=== PATIENT | female | born 1950 | race Caucasian/White ===

== ENCOUNTER 2017-06-18 22:57 | Inpatient (IN) | payer MEDICARE, OTHER ==
[~2017-06-18] VITALS: Ht 165.1 cm; Wt 68.0 kg
[2017-06-18] MEDS ORDERED: ZANT150T2 PO (23:12)
[2017-06-18 23:13] VITALS: BP 177/79; PULSE 96; RESP 18; TEMP 97.9; O2SAT 96
[2017-06-19] VITALS (17 sets, daily range): BP systolic 91–179; BP diastolic 44–82; PULSE 70–115; RESP 17–22; TEMP 96.8–100.9; O2SAT 91–98
[2017-06-19] MEDS ORDERED: ONDANSETRON HCL 4 MG/2 ML VIAL IVP ONE
--- NOTE | 2017-06-19 00:04 | PD ---
HPI Chief Complaint: Fall Time Seen by Provider: 23:48 Travel History International Travel<30 days: No Contact w/Intl Traveler<30days: No Traveled to known affect area: No History of Present Illness HPI The patient is a 67-year-old female who presents to the emergency department via EMS for right hip pain. The patient states she tripped and fell getting out of the shower earlier today. The patient thinks she struck her right knee on the sink prior to falling on the right hip. She does complain of a small bruise left elbow and abrasion of the anterior aspect of the right knee , however, denies any elbow pain or knee pain. She does complain of right hip pain that radiates into the right groin. She is able flex and extend the right hip and knee, however, is unable to bear weight. She denies any history of previous pelvic injuries or hip injuries. She denies any head injury or neck pain after the fall. The patient is currently in between physicians and does not have a primary physician. She does have a history of hiatal hernia and takes Zantac. She also has a history of hepatitis C. COUNTS INCLUDE 234 BEDS AT THE [facility] Past Medical History Narrative Medical Hep C, hiatal hernia ?: Not Past Surgical History Narrative Surgical Tonsillectomy Social History Tobacco Use: Yes Allergies-Medications (Allergen,Severity, Reaction): Coded Allergies: diphenhydramine (Verified Allergy, Unknown, 06/18/17) hydroxyzine (Verified Allergy, Unknown, 06/18/17) Reported Meds & Prescriptions Reported Meds & Active Scripts Active Reported Zantac (Ranitidine HCl) 150 Mg Tab 150 Mg PO DAILY Review of Systems Except as stated in HPI: all other systems reviewed are Neg HENT: No: Headaches, Neck Pain Cardiovascular: No: Chest Pain or Discomfort Respiratory: No: Shortness of Breath Musculoskeletal: Positive: Limited ROM, Pain Neurologic: No: Paresthesia, Sensory Disturbance Physical Exam Narrative GENERAL: Awake, alert, pleasant 67-year-old female who appears her stated age and is in no acute respiratory distress. SKIN: Focused skin assessment warm/dry. HEAD: Atraumatic. Normocephalic. EYES: No injection or drainage. ENT: No nasal bleeding or discharge. Mucous membranes pink and moist. NECK: Trachea midline. No JVD. CARDIOVASCULAR: Regular rate and rhythm. No murmur appreciated. RESPIRATORY: No accessory muscle use. Clear to auscultation. Breath sounds equal bilaterally. GASTROINTESTINAL: Abdomen soft, non-tender, nondistended. No rebound tenderness. MUSCULOSKELETAL: No obvious leg length discrepancy. Tenderness over the lateral aspect of the right hip and in the medial right inguinal region. Small contusion over the right knee the patient is able flex the right knee, patella is midline, no tenderness of palpation over the right knee. Contusion noted over the left elbow, however, she is able flex and extend left upper extremity without difficulty. Positive distal pulses. She is able plantarflex and dorsiflex the left leg. NEUROLOGICAL: Awake and alert. No obvious cranial nerve deficits. Motor grossly within normal limits. Normal speech. PSYCHIATRIC: Appropriate mood and affect; insight and judgment normal. Data Data Last Documented VS Vital Signs Date Time Temp Pulse Resp B/P (MAP) Pulse Ox O2 Delivery O2 Flow Rate FiO2 06/19/17 00:10 86 17 179/82 (114) 96 Room Air 06/18/17 23:13 97.9 Orders Orders Hip, Uni(Ap&Lat) W Ap Pelvis (06/18/17 23:57) Iv Access Insert/Monitor (06/18/17 23:57) Oximetry (06/18/17 23:57) Ecg Monitoring (06/18/17 23:57) Morphine Inj (Morphine Inj) (06/19/17 00:00) Ondansetron Inj (Zofran Inj) (06/19/17 00:00) Sodium Chloride 0.9% Flush (Ns Flush) (06/19/17 00:00) Electrocardiogram (06/19/17 00:53) Complete Blood Count With Diff (06/19/17 00:53) Comprehensive Metabolic Panel (06/19/17 00:53) Prothrombin Time / Inr (Pt) (06/19/17 00:53) Act Partial Throm Time (Ptt) (06/19/17 00:53) Urinalysis - C+S If Indicated (06/19/17 00:53) Type And Screen (06/19/17 00:53) Chest, Single Ap (06/19/17 00:53) Sodium Chloride 0.9% Flush (Ns Flush) (06/19/17 01:00) Diet Npo (06/20/17 Breakfast) Admit Order (Ed Use Only) (06/19/17 01:02) MDM Medical Decision Making Medical Screen Exam Complete: Yes Emergency Medical Condition: Yes Medical Record Reviewed: Yes Interpretation(s) X-ray the right hip reveals mildly angulated impacted basicervical right femoral neck fracture EKG reveals normal sinus rhythm with a rate of 93. Nonspecific T wave changes. Last Impressions Chest X-Ray 06/19/17 0053 Signed Impressions: Service Date/Time: Monday, June 19, 2017 01:04 - CONCLUSION: No acute disease Mann Villa MD Hip and Pelvis X-Ray 06/18/17 3257 Signed Impressions: Service Date/Time: Monday, June 19, 2017 00:28 - CONCLUSION: Mildly angulated and impacted basicervical right femoral neck fracture Mann Villa MD CBC reveals hemoglobin of 7.2, white count was slightly elevated CMP unremarkable Coags are unremarkable Differential Diagnosis Differential diagnosis includes fracture, pelvic fracture, hip fracture, dislocation, contusion, hematoma, inability to ambulate. Narrative Course X-ray of the pelvis and right hip were obtained. The patient was administered morphine 4 mg intravenously and Zofran 4 mg intravenously. The patient's hemoglobin was noted to be 7.2 CMP is unremarkable. The patient may need transfusion prior to surgery, I did notify the attending physician of the hemoglobin. The patient is medically cleared to go the floor. Physician Communication Physician Communication The on-call medical team was paged for admission. I discussed the patient with Dr. Catalan who agrees with admission. Diagnosis Primary Impression: Closed right hip fracture Qualified Codes: S72.001A - Fracture of unspecified part of neck of right femur, initial encounter for closed fracture Additional Impression: Anemia Qualified Codes: D64.9 - Anemia, unspecified Admitting Information Admitting Physician Requests: Admit Condition: Stable Humphrey Jack MD Jun 19, 2017 00:04
--- NOTE | 2017-06-19 00:56 | RADRPT ---
EXAM DATE/TIME: 06/19/2017 00:28 [facility] COMPARISON: No previous studies available for comparison. INDICATIONS : Pt fell earlier- Pain to right hip MEDICAL HISTORY : Hepatitis C. Gastroesophageal reflux disease. Hiatal hernia. SURGICAL HISTORY : Tonsillectomy. ENCOUNTER: Initial ACUITY: 1 day PAIN SCORE: 7/10 LOCATION: Right Hip FINDINGS: There is a slightly impacted minimally angulated basicervical femoral neck fracture. Minimal fragment ation of the lesser trochanter is noted. There is severe arthritic change with concentric joint space narrowing, subchondral sclerosis and marginal osteophyte formation. Bony pelvis appears intact. Cont ralateral left hip is notable for mild arthritic change. CONCLUSION: Mildly angulated and impacted basicervical right femoral neck fracture Mann Villa MD on June 19, 2017 at 0:52 Board Certified Radiologist. This report was verified electronically.
[2017-06-19] MEDS ORDERED: SODIUM CHLORIDE 0.9% FLUSH 10 ML FLUSH IVF PRN ×2 (01:00)
[2017-06-19] MEDS ORDERED: ACETAMINOPHEN 325 MG TAB PO PRN (01:15)
[2017-06-19] MEDS ORDERED: BISACODYL 10 MG SUPP RECTAL PRN (01:15)
[2017-06-19] MEDS ORDERED: LACTULOSE SYRUP 20 GM/30 ML CUP PO PRN (01:15)
[2017-06-19] MEDS ORDERED: ONDANSETRON HCL 4 MG/2 ML VIAL IVP PRN (01:15)
[2017-06-19] MEDS ORDERED: SODIUM CHLORIDE 0.9% FLUSH 10 ML FLUSH IV FLUSH PRN (01:15)
[2017-06-19] MEDS ORDERED: SENNOSIDES 8.6 MG TAB PO PRN (01:15)
[2017-06-19] MEDS ORDERED: MAGNESIUM HYDROXIDE SUSP 30 ML CUP PO PRN (01:15)
[2017-06-19] MEDS: SODIUM CHLOR 0.9% 1000 ML INJ 1,000 ML IV SCH ×3 (01:26→21:06)
[2017-06-19 01:27] LABS: AUTOMATED NEUTROPHIL # 12.3 TH/MM3 (1.8-7.7); BASOPHIL % 0.2 % (0.0-2.0); EOSINOPHIL % 0.3 % (0.0-4.0); HEMATOCRIT 25.2 % (35.0-46.0); HEMO FLAGS DIFF FINAL; LYMPH % 8.5 % (9.0-44.0); LYMPHOCYTE # 1.3 TH/MM3 (1.0-4.8); MEAN CELL VOLUME 62.3 FL (80.0-100.0); MEAN CORPUSCULAR HEMOGLOBIN 17.9 PG (27.0-34.0); MONO % 8.3 % (0.0-8.0); NEUT % 82.7 % (16.0-70.0); PLATELET COUNT 318 TH/MM3 (150-450); RED BLOOD COUNT 4.04 MIL/MM3 (4.00-5.30); RED CELL DISTRIBUTION WIDTH 20.1 % (11.6-17.2); WHITE BLOOD COUNT 14.9 TH/MM3 (4.0-11.0)
[2017-06-19] MEDS ORDERED: MORPHINE SULFATE 4 MG/ML INJ IV PUSH ONE ×2 (01:30)
--- NOTE | 2017-06-19 01:33 | RADRPT ---
EXAM DATE/TIME: 06/19/2017 01:04 [facility] COMPARISON: No previous studies available for comparison. INDICATIONS : Right hip pain post fall earlier MEDICAL HISTORY : Hepatitis C. Gastroesophageal reflux disease. Hiatal hernia. SURGICAL HISTORY : Tonsillectomy. ENCOUNTER: Initial ACUITY: 1 day PAIN SCORE: 8/10 LOCATION: Bilateral chest FINDINGS: Lungs are focally clear. No pleural effusion is evident. Retrocardiac double density appears to refle ct hiatal hernia. Mediastinal contours are otherwise satisfactory. CONCLUSION: No acute disease Mann Villa MD on June 19, 2017 at 1:31 Board Certified Radiologist. This report was verified electronically.
[2017-06-19 01:35] LABS: MEAN CORPUSCULAR HGB CONC 28.7 % (32.0-36.0)
[2017-06-19 01:42] LABS: APTT (PATIENT) 25.5 SEC (24.3-30.1); PROTHROMBIN TIME - PATIENT 10.8 SEC (9.8-11.6)
[2017-06-19 02:02] LABS: ALT (GPT) 23 U/L (10-53); ANION GAP 9 MEQ/L (5-15); AST (GOT) 24 U/L (15-37); BICARBONATE 26.1 MEQ/L (21.0-32.0); BLOOD UREA NITROGEN 17 MG/DL (7-18); CHLORIDE 107 MEQ/L (98-107); GLOMERULAR FILTRATION RATE 70 ML/MIN (>89); POTASSIUM 3.7 MEQ/L (3.5-5.1); SODIUM (NA) 142 MEQ/L (136-145)
[2017-06-19 02:04] LABS: ALKALINE PHOSPHATASE 99 U/L (45-117); TOTAL BILIRUBIN ADULT 0.4 MG/DL (0.2-1.0)
[2017-06-19 02:25] LABS: BLOOD, URINE NEG (NEG); COMMENT (UR) CATH-CULT NOT IND; CULTURE IF INDICATED CATH CULTURE NOT IND; GLUCOSE,URINE NEG (NEG); KETONE, URINE NEG (NEG); MUCUS URINE FEW /lpf (OCC); NITRITE,URINE NEG (NEG); PH, URINE 5.5 (5.0-8.5); SQUAMOUS EPITHELIAL CELL URINE <1 /hpf (0-5); URINE COLOR LIGHT-YELLOW (YELLW/STRAW)
[2017-06-19] MEDS ORDERED: SODIUM CHLOR 0.9% 250 ML INJ 250 ML IV ONE (02:30)
[2017-06-19] MEDS ORDERED: FUROSEMIDE 20 MG/2 ML VIAL IV PUSH ONE (02:30)
--- NOTE | 2017-06-19 02:56 | HHI.HP ---
[facility] Unknown Admission Diagnosis right hip fracture Diagnoses: (1) Fall Diagnosis: Principal (2) Closed right hip fracture Diagnosis: Principal (3) Anemia Diagnosis: Principal (4) HTN (hypertension) Diagnosis: Principal (5) Leukocytosis Diagnosis: Principal (6) Tobacco abuse Diagnosis: Principal Travel History International Travel<30 Days: No Contact w/Intl Traveler <30 Da: No Traveled to Known Affected Are: No History of Present Illness This is a 67-year-old female with a PMH of Hepatitis C and Tobacco Abuse who was brought to the ER by EMS secondary to complaints of right hip pain following a fall. Patient states she was getting out of the shower and had mechanical slip and fall onto her right leg, immediate pain following fall, unable to bear weight. Denies LOC or head trauma. On arrival, BP 177/79, HR 96 , O2 sat 96% on RA, Afebrile. W WBC 14.9. Hemoglobin 7.2, and appears labs for comparison. Chemistry essentially unremarkable sipper GFR 70. INR 1.0. A- . CXR with no acute findings. Hip X-ray with mildly angulated and impacted right femoral neck fracture. Review of Systems Except as stated in HPI: all other systems reviewed are Neg ROS: 14 point review of systems otherwise negative. Past Family Social History Past Medical History PMH: Hepatitis C and Tobacco Abuse Past Surgical History PAST SURGICAL HISTORY: Tonsillectomy Allergies: Coded Allergies: diphenhydramine (Verified Allergy, Unknown, 06/18/17) hydroxyzine (Verified Allergy, Unknown, 06/18/17) Family History PAST FAMILY HISTORY: Reviewed. No h/o DM or CAD Social History PAST SOCIAL HISTORY: Negative for alcohol or drugs. Positive for tobacco. Physical Exam Vital Signs Vital Signs Date Time Temp Pulse Resp B/P (MAP) Pulse Ox O2 Delivery O2 Flow Rate FiO2 06/19/17 02:16 06/19/17 00:10 86 17 179/82 (114) 96 Room Air 06/18/17 23:58 86 18 96 Room Air 06/18/17 23:13 97.9 96 18 177/79 (111) 96 Physical Exam PE: GENERAL: Middle-aged white female in no acute distress. HEENT: PERRLA, EOMI. No scleral icterus or conjunctival pallor. No lid lag or facial droop. CARDIOVASCULAR: Regular rate and rhythm. No obvious murmurs to auscultation. No chest tenderness to palpation. RESPIRATORY: No obvious rhonchi or wheezing. Clear to auscultation. Breath sounds equal bilaterally. GASTROINTESTINAL: Abdomen soft, non-tender, nondistended. BS normal. MUSCULOSKELETAL: Extremities without clubbing, cyanosis, or edema. No obvious deformities. Decreased ROM of RLE due to injury. Pulses intact. NEUROLOGICAL: Awake, alert and oriented x4. No focal neurologic deficits. Moving both upper and lower extremities spontaneously. Laboratory Laboratory Tests Test 06/19/17 01:14 06/19/17 02:10 White Blood Count 14.9 Red Blood Count 4.04 Hemoglobin 7.2 Hematocrit 25.2 Mean Corpuscular Volume 62.3 Mean Corpuscular Hemoglobin 17.9 Mean Corpuscular Hemoglobin Concent 28.7 Red Cell Distribution Width 20.1 Platelet Count 318 Mean Platelet Volume 7.8 Neutrophils (%) (Auto) 82.7 Lymphocytes (%) (Auto) 8.5 Monocytes (%) (Auto) 8.3 Eosinophils (%) (Auto) 0.3 Basophils (%) (Auto) 0.2 Neutrophils # (Auto) 12.3 Lymphocytes # (Auto) 1.3 Monocytes # (Auto) 1.2 Eosinophils # (Auto) 0.0 Basophils # (Auto) 0.0 CBC Comment DIFF FINAL Differential Comment Prothrombin Time 10.8 Prothromb Time International Ratio 1.0 Activated Partial Thromboplast Time 25.5 Blood Urea Nitrogen 17 Creatinine 0.82 Random Glucose 101 Total Protein 7.3 Albumin 3.4 Calcium Level 8.8 Alkaline Phosphatase 99 Aspartate Amino Transf (AST/SGOT) 24 Alanine Aminotransferase (ALT/SGPT) 23 Total Bilirubin 0.4 Sodium Level 142 Potassium Level 3.7 Chloride Level 107 Carbon Dioxide Level 26.1 Anion Gap 9 Estimat Glomerular Filtration Rate 70 Urine Color LIGHT-YELLOW Urine Turbidity CLEAR Urine pH 5.5 Urine Specific Lillian 1.013 Urine Protein NEG Urine Glucose (UA) NEG Urine Ketones NEG Urine Occult Blood NEG Urine Nitrite NEG Urine Bilirubin NEG Urine Urobilinogen LESS THAN 2.0 Urine Leukocyte Esterase NEG Urine RBC LESS THAN 1 Urine WBC LESS THAN 1 Urine Squamous Epithelial Cells <1 Urine Mucus FEW Microscopic Urinalysis Comment CATH-CULT NOT IND Result Diagram: 06/19/1711306/19/17113 Caprini VTE Risk Assessment Caprini VTE Risk Assessment: Mod/High Risk (score >= 2) Caprini Risk Assessment Model Point Value = 1 Point Value = 2 Point Value = 3 Point Value = 5 Age 41-60 Minor surgery BMI > 25 kg/m2 Swollen legs Varicose veins or History of unexplained or recurrent spontaneous Oral contraceptives or hormone replacement Sepsis (< 1 month) Serious lung disease, including pneumonia (< 1 month) Abnormal pulmonary function Acute myocardial infarction Congestive heart failure (< 1 month) History of inflammatory bowel disease Medical patient at bed rest Age 61-74 Arthroscopic surgery Major open surgery (> 45 min) Laparoscopic surgery (> 45 min) Malignancy Confined to bed (> 72 hours) Immobilizing plaster cast Central venous access Age >= 75 History of VTE Family history of VTE Factor V Leiden Prothrombin [id number] Lupus anticoagulant Anticardiolipin antibodies Elevated serum homocysteine Heparin-induced thrombocytopenia Other congenital or acquired thrombophilia Stroke (< 1 month) Elective arthroplasty Hip, pelvis, or leg fracture Acute spinal cord injury (< 1 month) Prophylaxis Regimen Total Risk Factor Score Risk Level Prophylaxis Regimen 0-1 Low Early ambulation 2 Moderate Order ONE of the following: *Sequential Compression Device (SCD) *Heparin 5000 units SQ BID 3-4 Higher Order ONE of the following medications: *Heparin 5000 units SQ TID *Enoxaparin/Lovenox 40 mg SQ daily (WT < 150 kg, CrCl > 30 mL/min) *Enoxaparin/Lovenox 30 mg SQ daily (WT < 150 kg, CrCl > 10-29 mL/min) *Enoxaparin/Lovenox 30 mg SQ BID (WT < 150 kg, CrCl > 30 mL/min) AND/OR *Sequential Compression Device (SCD) 5 or more Highest Order ONE of the following medications: *Heparin 5000 units SQ TID (Preferred with Epidurals) *Enoxaparin/Lovenox 40 mg SQ daily (WT < 150 kg, CrCl > 30 mL/min) *Enoxaparin/Lovenox 30 mg SQ daily (WT < 150 kg, CrCl > 10-29 mL/min) *Enoxaparin/Lovenox 30 mg SQ BID (WT < 150 kg, CrCl > 30 mL/min) AND *Sequential Compression Device (SCD) Assessment and Plan Problem List: (1) Fall ICD Code: W19.XXXA - Unspecified fall, initial encounter (2) Closed right hip fracture ICD Code: S72.001A - Fracture of unspecified part of neck of right femur, initial encounter for closed fracture Status: Acute (3) Anemia ICD Code: D64.9 - Anemia, unspecified Status: Acute (4) Leukocytosis ICD Code: D72.829 - Elevated white blood cell count, unspecified (5) HTN (hypertension) ICD Code: I10 - Essential (primary) hypertension (6) Tobacco abuse ICD Code: Z72.0 - Tobacco use Assessment and Plan A/P: 1. Fall: s/p mechanical slip and fall while getting out of the shower, no LOC or head trauma. 2. Right Hip Fx: secondary to above. Hip X-ray w/ mildly angulate and impacted right femoral neck fracture, images reviewed by me. Consult Ortho in am for further eval. NPO, IVF, analgesics/antiemetics. 3. Anemia: Hgb 7.2, no previous labs for comparison. Type & Screen, transfuse 2u pRBC, repeat labs after transfusion. 4. Leukocytosis: WBC 14, likely secondary to fall/injury. No signs of infection. CXR w/ no acute findings, images reviewed by me. U/a negative for UTI. Repeat labs in am. 5. HTN: BP 170's, likely compounded by pain complaints, optimize pain control , monitor BP. 6. DVT Prophylaxis: Anticoagulation post-op per Ortho 7. Social work for d/c planning as needed. 8. Case discussed w/ ER physician at length. Physician Certification 2 Midnight Certification Type: Admission for Inpatient Services Order for Inpatient Services The services are ordered in accordance with Medicare regulations or non- Medicare payer requirements, as applicable. In the case of services not specified as inpatient-only, they are appropriately provided as inpatient services in accordance with the 2-midnight benchmark. Estimated LOS (days): 2 days is the estimated time the patient will need to remain in the hospital, assuming treatment plan goals are met and no additional complications. Post-Hospital Plan: Not yet determined Problem Qualifiers (1) Closed right hip fracture: Qualified Codes: S72.001A - Fracture of unspecified part of neck of right femur , initial encounter for closed fracture (2) Anemia: Qualified Codes: D64.9 - Anemia, unspecified Ryanne Catalan MD Jun 19, 2017 02:56
[2017-06-19] MEDS: HYDROmorphone HCL PF 1 MG/ML VIAL IV PUSH PRN ×2 (03:06→09:40)
[2017-06-19] MEDS ORDERED: CHLORHEXIDINE GLUCONATE 2 % 1 PACK (2 CLOTHS) TOPICAL PRN (03:30)
[2017-06-19] MEDS ORDERED: INSULIN HUMAN REGULAR 1,000 UNITS/10 ML VIAL SQ PRN (03:30)
[2017-06-19] MEDS ORDERED: LACTATED RINGER'S 1000 ML IV PRN (03:30)
[2017-06-19] MEDS ORDERED: POVIDONE IODINE 5% (ANTISEPSIS KIT) 4 APPLICATIONS EACH NARE PRN (03:30)
--- NOTE | 2017-06-19 07:34 | PD.CONS ---
HPI [facility] Consult Requested By Reason for Consult right hip fracture Primary Care Physician Unknown Admission Diagnosis right hip fracture Diagnoses: (1) Fall (2) Closed right hip fracture Diagnosis: Principal (3) Anemia (4) Leukocytosis (5) HTN (hypertension) (6) Tobacco abuse Chief Complaint: Right hip pain History of Present Illness 67yo F presents with right hip pain after mechanical fall. She denies any major medical issues but does report some hypertension. Denies other extremity injury, head trauma, CP, SOB, AP, N/V Review of Systems Constitutional: DENIES: Fever Endocrine: DENIES: Polyuria Eyes: DENIES: Blurred vision Ears, nose, mouth, throat: DENIES: Running Nose Respiratory: DENIES: Cough Cardiovascular: DENIES: Chest pain Gastrointestinal: DENIES: Abdominal pain Genitourinary: DENIES: Urinary frequency Musculoskeletal: COMPLAINS OF: Joint pain Integumentary: DENIES: Rash Hematologic/lymphatic: DENIES: Bruising Immunologic/allergic: DENIES: Eczema Neurologic: DENIES: Headache Psychiatric: DENIES: Anxiety Past Family Social History Past Medical History PMH: Hepatitis C and Tobacco Abuse Past Surgical History PAST SURGICAL HISTORY: Tonsillectomy Allergies: Coded Allergies: diphenhydramine (Verified Allergy, Unknown, 06/18/17) hydroxyzine (Verified Allergy, Unknown, 06/18/17) Active Ordered Medications Current Medications Medications (Trade) Dose Ordered Sig/Carole Route Start Time Stop Time Status Last Admin Sodium Chloride 1,000 ml @ 100 mls/hr Q10H IV 06/19/17 01:06 06/19/17 01:26 (NS Flush) 2 ml UNSCH PRN IV FLUSH 06/19/17 01:15 (NS Flush) 2 ml BID IV FLUSH 06/19/17 09:00 (Zofran Inj) 4 mg Q6H PRN IVP 06/19/17 01:15 (Tylenol) 650 mg Q6H PRN PO 06/19/17 01:15 ([place] 5-325 Mg) 1 tab Q4H PRN PO 06/19/17 01:15 (Dilaudid Pf Inj) 1 mg Q3H PRN IV PUSH 06/19/17 01:15 06/19/17 03:06 (Sheyla-Colace) 1 tab BID PO 06/19/17 09:00 (Milk Of Magnesia Liq) 30 ml Q12H PRN PO 06/19/17 01:15 (Senokot) 17.2 mg Q12H PRN PO 06/19/17 01:15 (Dulcolax Supp) 10 mg DAILY PRN RECTAL 06/19/17 01:15 (Lactulose Liq) 30 ml DAILY PRN PO 06/19/17 01:15 Sodium Chloride 250 ml @ 15 mls/hr ONCE ONCE IV 06/19/17 02:30 06/19/17 19:09 Lactated Ringer's 1,000 ml @ 30 mls/hr Q24H PRN IV 06/19/17 03:30 06/22/17 03:29 (Betadine 5% Antisepsis Kit) 1 applic HISTOLOGY TECH PRN EACH NARE 06/19/17 03:30 06/22/17 03:29 (Chlorhexidine 2% Cloth) 3 pack HISTOLOGY TECH PRN TOPICAL 06/19/17 03:30 06/22/17 03:29 (NovoLIN R INJ) See Protocol Table ... HISTOLOGY TECH PRN SQ 06/19/17 03:30 06/22/17 03:29 (Flu (Quadrivalent) Vaccine Inj) 0.5 ml ONCE ONCE IM 06/20/17 10:00 06/20/17 10:01 Reported Meds & Active Scripts Active Reported Zantac (Ranitidine HCl) 150 Mg Tab 150 Mg PO DAILY Family History PAST FAMILY HISTORY: Reviewed. No h/o DM or CAD Social History PAST SOCIAL HISTORY: Negative for alcohol or drugs. Positive for tobacco. Physical Exam Vital Signs Vital Signs Date Time Temp Pulse Resp B/P (MAP) Pulse Ox O2 Delivery O2 Flow Rate FiO2 06/19/17 05:58 100.9 108 18 146/67 94 06/19/17 05:35 96.9 111 18 114/53 06/19/17 03:00 97.5 91 18 137/58 (84) 94 06/19/17 02:16 06/19/17 00:10 86 17 179/82 (114) 96 Room Air 10/8/17 23:58 86 18 96 Room Air 10/8/17 23:13 97.9 96 18 177/79 (111) 96 Physical Exam Awake, alert, NAD Normocephalic Pupils equal Mucous membranes moist and pink No JVD Soft abdomen Non-labored respirations Regular rate RLE: +logroll, unable to assess ROM due to hip pain. +EHL/FHL, +DF/PF, sensation intact. DP palpable. Other extremities: no tenderness, no deformities, NVI distally Laboratory Laboratory Tests Test 06/19/17 01:14 06/19/17 02:10 White Blood Count 14.9 Red Blood Count 4.04 Hemoglobin 7.2 Hematocrit 25.2 Mean Corpuscular Volume 62.3 Mean Corpuscular Hemoglobin 17.9 Mean Corpuscular Hemoglobin Concent 28.7 Red Cell Distribution Width 20.1 Platelet Count 318 Mean Platelet Volume 7.8 Neutrophils (%) (Auto) 82.7 Lymphocytes (%) (Auto) 8.5 Monocytes (%) (Auto) 8.3 Eosinophils (%) (Auto) 0.3 Basophils (%) (Auto) 0.2 Neutrophils # (Auto) 12.3 Lymphocytes # (Auto) 1.3 Monocytes # (Auto) 1.2 Eosinophils # (Auto) 0.0 Basophils # (Auto) 0.0 CBC Comment DIFF FINAL Differential Comment Prothrombin Time 10.8 Prothromb Time International Ratio 1.0 Activated Partial Thromboplast Time 25.5 Blood Urea Nitrogen 17 Creatinine 0.82 Random Glucose 101 Total Protein 7.3 Albumin 3.4 Calcium Level 8.8 Alkaline Phosphatase 99 Aspartate Amino Transf (AST/SGOT) 24 Alanine Aminotransferase (ALT/SGPT) 23 Total Bilirubin 0.4 Sodium Level 142 Potassium Level 3.7 Chloride Level 107 Carbon Dioxide Level 26.1 Anion Gap 9 Estimat Glomerular Filtration Rate 70 Urine Color LIGHT-YELLOW Urine Turbidity CLEAR Urine pH 5.5 Urine Specific [place] 1.013 Urine Protein NEG Urine Glucose (UA) NEG Urine Ketones NEG Urine Occult Blood NEG Urine Nitrite NEG Urine Bilirubin NEG Urine Urobilinogen LESS THAN 2.0 Urine Leukocyte Esterase NEG Urine RBC LESS THAN 1 Urine WBC LESS THAN 1 Urine Squamous Epithelial Cells <1 Urine Mucus FEW Microscopic Urinalysis Comment CATH-CULT NOT IND Result Diagram: 06/19/1711306/19/17113 Imaging Right hip XR with minimally displaced basicervical/pertrochanteric femur fracture Assessment & Plan Problem List: (1) Closed right hip fracture ICD Codes: S72.001A - Fracture of unspecified part of neck of right femur, initial encounter for closed fracture Status: Acute Qualifiers: Qualified Codes: S72.001A - Fracture of unspecified part of neck of right femur, initial encounter for closed fracture Assessment and Plan 67yo F with basicervical femur fracture 1. Discussed with the patient her options for treatment. Recommend IMN for her right hip fracture. Risks, benefits and alternatives discussed with the patient who has agreed with this. 2. Will ask medicine to optimize and clear for surgery 3. Plan for surgery either later tonight or tomorrow AM. Please keep NPO at this time. Odessa Jalloh MD Jun 19, 2017 07:34
[2017-06-19] MEDS: DOCUSATE SODIUM 50 MG/SENNA 8.6 MG TAB PO SCH ×2 (08:01→22:06)
[2017-06-19] MEDS: SODIUM CHLORIDE 0.9% FLUSH 10 ML FLUSH IV FLUSH SCH ×2 (08:01→22:06)
[2017-06-19 08:20] LABS: BACTERIA, URINE RARE /hpf; BLOOD, URINE TRACE (NEG); COMMENT (UR) CULTURE INDICATED; CULTURE IF INDICATED CULTURE INDICATED; GLUCOSE,URINE NEG (NEG); KETONE, URINE NEG (NEG); MUCUS URINE FEW /lpf (OCC); NITRITE,URINE NEG (NEG); SQUAMOUS EPITHELIAL CELL URINE <1 /hpf (0-5); URINE COLOR YELLOW (YELLW/STRAW)
--- NOTE | 2017-06-19 10:43 | RADRPT ---
EXAM DATE/TIME: 06/19/2017 09:59 [facility] COMPARISON: No previous studies available for comparison. INDICATIONS : Right leg pain post fall. MEDICAL HISTORY : Hepatitis C. Gastroesophageal reflux disease. SURGICAL HISTORY : None. ENCOUNTER: Subsequent ACUITY: 2 days PAIN SCORE: 10/10 LOCATION: Right Femur FINDINGS: Two view examination of the right femur demonstrates no evidence of fracture or dislocation. Bony mi neralization is normal. Joint space narrowing and osteophyte formation consistent with osteoarthriti s. The soft tissue structures are intact. CONCLUSION: 1. No acute fracture or dislocation. Vinayak Frye MD on June 19, 2017 at 10:24 Board Certified Radiologist. This report was verified electronically.
--- NOTE | 2017-06-19 11:51 | HHI.PR ---
Subjective Remarks Follow-up right hip fracture 06/19/17-patient seen and examined, and she was in acute respiratory distress after returning from [facility]. Patient was given pain medication prior to x- ray. Overnight as patient was being transfused 1 units June 17 she spiked a temp for which blood transfusion was stopped. Otherwise no other issues Objective Vitals Vital Signs Date Time Temp Pulse Resp B/P (MAP) Pulse Ox O2 Delivery O2 Flow Rate FiO2 06/19/17 11:32 97.2 92 22 116/52 (73) 92 06/19/17 07:43 99.7 115 20 138/63 (88) 91 06/19/17 05:58 100.9 108 18 146/67 94 06/19/17 05:35 96.9 111 18 114/53 06/19/17 03:00 97.5 91 18 137/58 (84) 94 06/19/17 02:16 06/19/17 00:10 86 17 179/82 (114) 96 Room Air 06/18/17 23:58 86 18 96 Room Air 06/18/17 23:13 97.9 96 18 177/79 (111) 96 I/O 06/18/17 06/18/17 06/18/17 06/19/17 06/19/17 06/19/17 06:59 14:59 22:59 06:59 14:59 22:59 Intake Total 452 ml Output Total 700 ml Balance -248 ml Intake Oral 0 ml IV Total 412 ml Packed Cells 30 ml Blood Product IV Normal Saline Flush 10 ml Output Urine Total 700 ml # Bowel Movements 0 Result Diagram: 06/19/174 06/19/17 0114 Imaging Last Impressions Femur X-Ray 06/19/17 09 Signed Impressions: Service Date/Time: Monday, June 19, 2017 09:59 - CONCLUSION: 1. No acute fracture or dislocation. Vinayak Frye MD Chest X-Ray 06/19/17 0053 Signed Impressions: Service Date/Time: Monday, June 19, 2017 01:04 - CONCLUSION: No acute disease Mann Villa MD Hip and Pelvis X-Ray 06/18/17 8494 Signed Impressions: Service Date/Time: Monday, June 19, 2017 00:28 - CONCLUSION: Mildly angulated and impacted basicervical right femoral neck fracture Mann Villa MD Objective Remarks GENERAL: Sluggish in response SKIN: Warm and dry. HEAD: Normocephalic. EYES: No scleral icterus. No injection or drainage. NECK: Supple, trachea midline. No JVD or lymphadenopathy. CARDIOVASCULAR: Regular rate and rhythm without murmurs, gallops, or rubs. RESPIRATORY: Breath sounds decreased bilaterally. No accessory muscle use. GASTROINTESTINAL: Abdomen soft, non-tender, nondistended. MUSCULOSKELETAL: No cyanosis, or edema. BACK: Nontender without obvious deformity. No CVA tenderness. A/P Problem List: (1) Fall ICD Code: W19.XXXA - Unspecified fall, initial encounter (2) Closed right hip fracture ICD Code: S72.001A - Fracture of unspecified part of neck of right femur, initial encounter for closed fracture Status: Acute (3) Anemia ICD Code: D64.9 - Anemia, unspecified Status: Acute (4) Leukocytosis ICD Code: D72.829 - Elevated white blood cell count, unspecified (5) HTN (hypertension) ICD Code: I10 - Essential (primary) hypertension (6) Tobacco abuse ICD Code: Z72.0 - Tobacco use Assessment and Plan 67-year-old female with 1. Fall: s/p mechanical slip and fall while getting out of the shower, no LOC or head trauma. 2. Right Hip Fx: secondary to above. Hip X-ray w/ mildly angulate and impacted right femoral neck fracture. Appreciate input from orthopedic surgery. NPO, IVF, analgesics/antiemetics. 3. Anemia: Hgb 7.2, no previous labs for comparison. Written for transfusion however overnight patient spiked a temp, therefore transfusion on hold 4. Leukocytosis: WBC 14, likely secondary to fall/injury. No signs of infection. CXR w/ no acute findings. U/a negative for UTI. 5. HTN: Continue BP med 6. DVT Prophylaxis: Anticoagulation post-op per Ortho 7. Acute Respiratory failure Secondary to narcotics and less likely PE Supplement oxygen, DuoNeb Problem Qualifiers (1) Closed right hip fracture: Qualified Codes: S72.001A - Fracture of unspecified part of neck of right femur , initial encounter for closed fracture (2) Anemia: Qualified Codes: D64.9 - Anemia, unspecified Giovani Mora MD Jun 19, 2017 11:51
--- NOTE | 2017-06-19 12:27 | EKG ---
Date Performed: 06/19/2017 Time Performed: 01:06:06 PTAGE: 67 years EKG: Sinus rhythm NONSPECIFIC T-WAVE ABNORMALITY BORDERLINE ECG NO PREVIOUS TRACING DOCTOR: Pérez Bhatt Interpretating Date/Time 06/19/2017 12:26:30
[2017-06-19] MEDS ORDERED: RESP: ALBUTEROL 2.5 MG/IPRATROPIUM 0.5 MG NEB (SCH) ONE (14:08)
[2017-06-19] MEDS ORDERED: DEXAMETHASONE SOD PHOS 4 MG/ML VIAL ONE (14:13)
[2017-06-19] MEDS ORDERED: diphenhydrAMINE HCL 50 MG/ML VIAL ONE (14:13)
[2017-06-19] MEDS ORDERED: ACETAMINOPHEN 1000 MG/100 ML 100 ML IV ONE (14:13)
[2017-06-19] MEDS ORDERED: methylPREDNISolone SOD SUCC 125 MG/2 ML VIAL IV PUSH ONE (15:00)
[2017-06-19 15:19] LABS: HEMATOCRIT 25.1 % (35.0-46.0)
[2017-06-19 15:29] LABS: REVIEW FLAG FINAL
[2017-06-19] MEDS ORDERED: IOHEXOL 350 MG/ML 10 ML VIAL (for RAD DIAG) IVCONTRAST ONE (16:42)
--- NOTE | 2017-06-19 16:53 | RADRPT ---
EXAM DATE/TIME: 06/19/2017 16:29 [facility] COMPARISON: No previous studies available for comparison. INDICATIONS : Shortness of breath. IV CONTRAST: 90 cc Omnipaque 350 (iohexol) IV RADIATION DOSE: 23.14 CTDIvol (mGy) MEDICAL HISTORY : Hernia, hiatal. Hepatitis C. SURGICAL HISTORY : Right hip replacement ENCOUNTER: Initial ACUITY: 1 day PAIN SCALE: 0/10 LOCATION: chest TECHNIQUE: Volumetric scanning of the chest was performed using a pulmonary embolism protocol MIP images were re constructed. Using automated exposure control and adjustment of the mA and/or kV according to patien t size, radiation dose was kept as low as reasonably achievable to obtain optimal diagnostic quality images. DICOM format image data is available electronically for review and comparison. Follow-up recommendations for detected pulmonary nodules are based at a minimum on nodule size and pa tient risk factors according to Fleischner Society Guidelines. FINDINGS: PULMONARY ARTERIES: No filling defects are seen in the pulmonary arteries through the segmental level. LUNGS: Moderate upper lobe predominant centrilobular emphysema. Mild bilateral lower lobe air space consolid ation PLEURAE: There is no pleural thickening or pleural effusion. MEDIASTINUM: Heart is grossly unremarkable without significant pericardial effusion. Thoracic aorta is normal in c aliber without evidence for significant dissection or aneurysm. Proximal arch vessels are patent. Sub centimeter mediastinal nodes do not meet CT size criteria. MUSCULOSKELETAL: No abnormal lytic or blastic bony lesions. MISCELLANEOUS: Large hiatal hernia. Visualiz upper abdomen is otherwise unremarkable. CONCLUSION: 1. No CT evidence for pulmonary artery embolism through the segmental level. 2. Moderate upper lobe predominant centrilobular emphysema. 3. Mild bilateral lower lobe airspace consolidation. This may reflect atelectasis, particularly in th e left lower lobe given the large hiatal hernia. However, differential considerations include aspirat ion. 4. Large hiatal hernia. Vinayak Frye MD on June 19, 2017 at 16:46 Board Certified Radiologist. This report was verified electronically.
[2017-06-19] MEDS: KETOROLAC TROMETHAMINE 30 MG/ML (IVP) VIAL IV PUSH PRN (17:37)
[2017-06-19 20:11] LABS: BLOOD GAS BASE EXCESS 2.5 mmol/L (-2-2); BLOOD GAS CARBOXYHEMOGLOBIN 1.9 % (0-4); BLOOD GAS HCO3 28 mmol/L (22-26); BLOOD GAS METHEMOGLOBIN 0.8 % (0-2); BLOOD GAS O2 HGB SATURATION 93 % (90-100); BLOOD GAS PCO2 51 mmHg (38-42); BLOOD GAS PO2 81 mmHg (61-120); BLOOD GAS TOTAL HGB 6.8 G/DL (12.0-16.0); TEMP CORR TO 98.6
[2017-06-19 20:13] LABS: CRITICAL VALUE YES
[2017-06-19 20:14] LABS: DRAW SITE RT RADIAL; LITER FLOW 6 L/M; NUMBER OF ARTERIAL PUNCTURES 2; OXYGEN DEVICE SIMPLE MASK; STAT YES; ULNAR PULSE PRESENT
[2017-06-19] MEDS: ACETAMINOPHEN/HYDROcodone 325 MG/5 MG TAB PO PRN (22:05)
[2017-06-19] MEDS: FAMOTIDINE 20 MG TAB PO SCH (22:05)
[2017-06-20] VITALS (18 sets, daily range): BP systolic 94–134; BP diastolic 21–72; PULSE 66–107; RESP 16–18; TEMP 95.4–98.6; O2SAT 93–99
[2017-06-20] MEDS ORDERED: CALCIUM CARBONATE 500 MG CHEWABLE TAB CHEW ONE (00:15)
[2017-06-20] MEDS: PIPERACIL-TAZO 3.375 GM PREMIX 50 ML IV SCH ×4 (01:04→21:21)
[2017-06-20] MEDS: ACETAMINOPHEN/HYDROcodone 325 MG/5 MG TAB PO PRN ×5 (03:33→20:23)
--- NOTE | 2017-06-20 06:50 | PD.ORT.PN ---
Subjective Subjective Remarks Patient anxious about surgery and anesthesia. States mild pain at present. On oxygen mask as she is a mouth breather CT negative for PE Objective Vitals Vital Signs Date Time Temp Pulse Resp B/P (MAP) Pulse Ox O2 Delivery O2 Flow Rate FiO2 06/20/17 04:06 97.9 87 18 97/51 (66) 99 06/20/17 03:26 96 Simple Mask 7.00 06/20/17 00:06 98.0 95 18 108/50 (69) 98 06/19/17 20:50 92 Nasal Cannula 6.00 06/19/17 20:06 97.3 102 18 114/57 (76) 98 06/19/17 18:55 92 30 06/19/17 18:55 92 Simple Mask 9.00 06/19/17 18:10 97.4 20 95 06/19/17 17:25 97.6 06/19/17 16:43 97.4 104 20 100/49 (66) 95 06/19/17 15:53 96.8 107 21 91/44 (60) 96 06/19/17 15:30 96.9 100 19 99/50 (66) 94 06/19/17 15:00 96.8 107 21 91/44 (60) 96 06/19/17 14:10 102.4 120 28 120/56 (77) 90 06/19/17 11:32 97.2 92 22 116/52 (73) 92 06/19/17 07:43 99.7 115 20 138/63 (88) 91 I/O 06/19/17 06/19/17 06/19/17 06/20/17 06/20/17 06/20/17 07:00 15:00 23:00 07:00 15:00 23:00 Intake Total 452 ml 0 ml 360 ml Output Total 700 ml 425 ml 500 ml Balance -248 ml -425 ml -140 ml Intake Oral 0 ml 0 ml 360 ml IV Total 412 ml Packed Cells 30 ml Blood Product IV Normal Saline Flush 10 ml Output Urine Total 700 ml 425 ml 500 ml # Bowel Movements 0 0 0 Result Diagram: 06/19/17 1415 06/19/17 0114 Imaging Last 24 hours Impressions Femur X-Ray 06/19/17 09 Signed Impressions: Service Date/Time: Monday, June 19, 2017 09:59 - CONCLUSION: 1. No acute fracture or dislocation. Vinayak Frye MD Objective Remarks Awake, alert, anxious at baseline RLE: +logroll, NVI distally Assessment & Plan Problem List: (1) Closed right hip fracture ICD Codes: S72.001A - Fracture of unspecified part of neck of right femur, initial encounter for closed fracture Status: Acute Qualifiers: Qualified Codes: S72.001A - Fracture of unspecified part of neck of right femur, initial encounter for closed fracture Assessment and Plan 67yo F with basicervical femur fracture 1. Plan for surgery today pending clearance by medical team. CT chest negative for PE. Hgb still pending this morning, but low yesterday. Likely will need transfusion. 2. Please keep NPO at this time. 3. Currently scheduled at 11:30 Odessa Jalloh MD Jun 20, 2017 06:50
[2017-06-20] MEDS: SODIUM CHLOR 0.9% 1000 ML INJ 1,000 ML IV SCH ×3 (07:06→22:17)
[2017-06-20 07:15] LABS: ALT (GPT) 19 U/L (10-53); ANION GAP 6 MEQ/L (5-15); AST (GOT) 16 U/L (15-37); BICARBONATE 28.2 MEQ/L (21.0-32.0); BLOOD UREA NITROGEN 24 MG/DL (7-18); CHLORIDE 104 MEQ/L (98-107); GLOMERULAR FILTRATION RATE 81 ML/MIN (>89); POTASSIUM 4.3 MEQ/L (3.5-5.1); SODIUM (NA) 138 MEQ/L (136-145)
[2017-06-20 07:17] LABS: ALKALINE PHOSPHATASE 77 U/L (45-117); TOTAL BILIRUBIN ADULT 0.3 MG/DL (0.2-1.0)
[2017-06-20 07:19] LABS: AUTOMATED NEUTROPHIL # 12.6 TH/MM3 (1.8-7.7); BASOPHIL % 0.2 % (0.0-2.0); HEMATOCRIT 23.8 % (35.0-46.0); MEAN CELL VOLUME 64.6 FL (80.0-100.0); MEAN CORPUSCULAR HEMOGLOBIN 18.2 PG (27.0-34.0); MONO % 3.8 % (0.0-8.0); PLATELET COUNT 269 TH/MM3 (150-450); RED BLOOD COUNT 3.69 MIL/MM3 (4.00-5.30); WHITE BLOOD COUNT 14.1 TH/MM3 (4.0-11.0)
[2017-06-20] MEDS: DOCUSATE SODIUM 50 MG/SENNA 8.6 MG TAB PO SCH ×2 (07:19→20:17)
[2017-06-20] MEDS: FAMOTIDINE 20 MG TAB PO SCH ×2 (07:19→20:17)
[2017-06-20 07:28] LABS: HEMO FLAGS AUTO DIFF; MEAN CORPUSCULAR HGB CONC 28.2 % (32.0-36.0)
[2017-06-20] MEDS: KETOROLAC TROMETHAMINE 30 MG/ML (IVP) VIAL IV PUSH PRN ×2 (07:37→14:10)
[2017-06-20] MEDS: SODIUM CHLORIDE 0.9% FLUSH 10 ML FLUSH IV FLUSH SCH ×2 (07:40→20:17)
[2017-06-20] MEDS ORDERED: SODIUM CHLOR 0.9% 250 ML INJ 250 ML IV ONE (08:00)
[2017-06-20] MEDS ORDERED: diphenhydrAMINE HCL 25 MG CAP PO PRN (08:00)
[2017-06-20] MEDS: RESP: ALBUTEROL 2.5 MG/IPRATROPIUM 0.5 MG NEB (SCH) NEB ×2 (08:00→20:00)
[2017-06-20 08:09] LABS: OVALOCYTES 1+ (NORMAL); PLATELET ESTIMATE SMEAR NORMAL (NORMAL); PLATELET MORPHOLOGY NORMAL (NORMAL); SCAN/DIFF AUTO DIFF CONFIRMED
[2017-06-20] MEDS: ACETAMINOPHEN 325 MG TAB PO PRN ×2 (08:15→18:24)
[2017-06-20] MEDS ORDERED: INFLUENZA VIRUS VACCINE (QUADRIVALENT) 0.5 ML SYR IM ONE (10:00)
--- NOTE | 2017-06-20 11:30 | HHI.PR ---
Subjective Remarks Follow-up right hip fracture 06/19/17-patient seen and examined, and she was in acute respiratory distress after returning from [facility]. Patient was given pain medication prior to x- ray. Overnight as patient was being transfused 1 units June 17 she spiked a temp for which blood transfusion was stopped. Otherwise no other issues 06/20/17-patient seen and examined; Respiratory sxs improved this AM; ovenright she refused BIPAP; NPO this AM Objective Vitals Vital Signs Date Time Temp Pulse Resp B/P (MAP) Pulse Ox O2 Delivery O2 Flow Rate FiO2 06/20/17 11:14 96.7 96 17 134/61 (85) 96 06/20/17 10:50 94 06/20/17 10:00 96 Simple Mask 3.00 06/20/17 09:45 96 Simple Mask 3.00 06/20/17 09:41 97 06/20/17 09:38 97.3 89 16 94/53 97 06/20/17 09:25 98.6 91 16 112/21 97 06/20/17 08:04 97 Simple Mask 6.00 06/20/17 08:00 95.4 86 17 105/52 (69) 97 06/20/17 04:06 97.9 87 18 97/51 (66) 99 06/20/17 03:26 96 Simple Mask 7.00 06/20/17 00:06 98.0 95 18 108/50 (69) 98 06/19/17 20:50 92 Nasal Cannula 6.00 06/19/17 20:06 97.3 102 18 114/57 (76) 98 06/19/17 18:55 92 30 06/19/17 18:55 92 Simple Mask 9.00 06/19/17 18:10 97.4 20 95 06/19/17 17:25 97.6 06/19/17 16:43 97.4 104 20 100/49 (66) 95 06/19/17 15:53 96.8 107 21 91/44 (60) 96 06/19/17 15:30 96.9 100 19 99/50 (66) 94 06/19/17 15:00 96.8 107 21 91/44 (60) 96 06/19/17 14:10 102.4 120 28 120/56 (77) 90 06/19/17 11:32 97.2 92 22 116/52 (17) 92 I/O 06/19/17 06/19/17 06/19/17 06/20/17 06/20/17 06/20/17 07:00 15:00 23:00 07:00 15:00 23:00 Intake Total 452 ml 0 ml 360 ml 0 ml 325 ml Output Total 700 ml 425 ml 500 ml 500 ml Balance -248 ml -425 ml -140 ml -500 ml 325 ml Intake Oral 0 ml 0 ml 360 ml 0 ml IV Total 412 ml Packed Cells 30 ml Blood Product IV Normal Saline Flush 10 ml 325 ml Output Urine Total 700 ml 425 ml 500 ml 500 ml # Bowel Movements 0 0 0 0 Result Diagram: 06/20/1760906/20/17609 Imaging Last Impressions Femur X-Ray 06/19/17 09 Signed Impressions: Service Date/Time: Monday, June 19, 2017 09:59 - CONCLUSION: 1. No acute fracture or dislocation. Vinayak Frye MD Chest X-Ray 06/19/17 0053 Signed Impressions: Service Date/Time: Monday, June 19, 2017 01:04 - CONCLUSION: No acute disease Mann Villa MD CT Angiography 06/19/17 0000 Signed Impressions: Service Date/Time: Monday, June 19, 2017 16:29 - CONCLUSION: 1. No CT evidence for pulmonary artery embolism through the segmental level. 2. Moderate upper lobe predominant centrilobular emphysema. 3. Mild bilateral lower lobe airspace consolidation. This may reflect atelectasis, particularly in the left lower lobe given the large hiatal hernia. However, differential considerations include aspiration. 4. Large hiatal hernia. Vinayak Frye MD Hip and Pelvis X-Ray 06/18/17 1398 Signed Impressions: Service Date/Time: Monday, June 19, 2017 00:28 - CONCLUSION: Mildly angulated and impacted basicervical right femoral neck fracture Mann Villa MD Objective Remarks GENERAL: NAD SKIN: Warm and dry. HEAD: Normocephalic. EYES: No scleral icterus. No injection or drainage. NECK: Supple, trachea midline. No JVD or lymphadenopathy. CARDIOVASCULAR: Regular rate and rhythm without murmurs, gallops, or rubs. RESPIRATORY: Breath sounds decreased bilaterally. No accessory muscle use. GASTROINTESTINAL: Abdomen soft, non-tender, nondistended. MUSCULOSKELETAL: No cyanosis, or edema. BACK: Nontender without obvious deformity. No CVA tenderness. A/P Problem List: (1) Fall ICD Code: W19.XXXA - Unspecified fall, initial encounter (2) Closed right hip fracture ICD Code: S72.001A - Fracture of unspecified part of neck of right femur, initial encounter for closed fracture Status: Acute (3) Anemia ICD Code: D64.9 - Anemia, unspecified Status: Acute (4) Leukocytosis ICD Code: D72.829 - Elevated white blood cell count, unspecified (5) HTN (hypertension) ICD Code: I10 - Essential (primary) hypertension (6) Tobacco abuse ICD Code: Z72.0 - Tobacco use Assessment and Plan 67-year-old female with 1. Fall: s/p mechanical slip and fall while getting out of the shower, no LOC or head trauma. 2. Right Hip Fx: secondary to above. Hip X-ray w/ mildly angulate and impacted right femoral neck fracture. Appreciate input from orthopedic surgery. NPO, IVF, analgesics/antiemetics. Plan for repair today 06/20/17 3. Anemia of Chronic disease: Transfuse 1 unit PRBC today 06/20/17 4. Leukocytosis: WBC 14, likely secondary to fall/injury. No signs of infection. CXR w/ no acute findings. U/a negative for UTI. 5. HTN: Continue BP med 6. DVT Prophylaxis: Anticoagulation post-op per Ortho 7. Acute Respiratory failure-Improving CTA negative for PE BIPAP ordered overnight Scheduled and PRN Duo Nebs s/p Solu Medrol 125mg IV x1 yesterday Problem Qualifiers (1) Closed right hip fracture: Qualified Codes: S72.001A - Fracture of unspecified part of neck of right femur , initial encounter for closed fracture (2) Anemia: Qualified Codes: D64.9 - Anemia, unspecified Giovani Mora MD Jun 20, 2017 11:30
[2017-06-20 16:19] LABS: AUTOMATED NEUTROPHIL # 17.8 TH/MM3 (1.8-7.7); BASOPHIL % 0.1 % (0.0-2.0); HEMATOCRIT 26.6 % (35.0-46.0); HEMO FLAGS DIFF FINAL; LYMPH % 7.9 % (9.0-44.0); LYMPHOCYTE # 1.7 TH/MM3 (1.0-4.8); MEAN CELL VOLUME 66.1 FL (80.0-100.0); MEAN CORPUSCULAR HEMOGLOBIN 18.9 PG (27.0-34.0); MONO % 7.5 % (0.0-8.0); NEUT % 84.5 % (16.0-70.0); PLATELET COUNT 286 TH/MM3 (150-450); RED BLOOD COUNT 4.02 MIL/MM3 (4.00-5.30); RED CELL DISTRIBUTION WIDTH 21.7 % (11.6-17.2)
[2017-06-20 16:22] LABS: MEAN CORPUSCULAR HGB CONC 28.6 % (32.0-36.0)
[2017-06-20] MEDS ORDERED: LORazepam 1 MG TAB PO STA (16:23)
[2017-06-20] MEDS ORDERED: ALPRAZolam 0.5 MG TAB PO PRN (16:45)
[2017-06-21] VITALS (7 sets, daily range): BP systolic 126–157; BP diastolic 58–74; PULSE 92–104; RESP 17–19; TEMP 96.3–98; O2SAT 91–94
[2017-06-21] MEDS: ACETAMINOPHEN/HYDROcodone 325 MG/5 MG TAB PO PRN ×3 (00:49→22:14)
[2017-06-21] MEDS: SODIUM CHLOR 0.9% 1000 ML INJ 1,000 ML IV SCH ×3 (03:06→23:06)
[2017-06-21] MEDS: KETOROLAC TROMETHAMINE 30 MG/ML (IVP) VIAL IV PUSH PRN ×3 (04:06→20:41)
[2017-06-21] MEDS: PIPERACIL-TAZO 3.375 GM PREMIX 50 ML IV SCH ×3 (05:16→21:05)
--- NOTE | 2017-06-21 07:28 | PD.ORT.PN ---
Subjective Subjective Remarks Patient states her pain is better controlled and she feels much better this morning after her transfusions. Objective Vitals Vital Signs Date Time Temp Pulse Resp B/P (MAP) Pulse Ox O2 Delivery O2 Flow Rate FiO2 06/21/17 06:44 Nasal Cannula 1.00 06/21/17 04:10 96.3 92 19 144/65 (91) 94 06/21/17 00:50 98.0 92 19 130/67 (88) 93 06/20/17 23:00 103 06/20/17 21:18 97.0 66 18 129/72 96 06/20/17 20:32 94 Nasal Cannula 1.00 06/20/17 20:30 97.7 107 18 123/60 (81) 93 06/20/17 20:00 102 06/20/17 20:00 93 Nasal Cannula 1.00 06/20/17 18:42 95.6 98 17 116/50 94 06/20/17 18:28 97.2 100 16 134/66 93 06/20/17 15:43 93 Nasal Cannula 1.00 06/20/17 15:33 95.6 95 17 133/58 (83) 93 06/20/17 11:14 96.7 96 17 134/61 (85) 96 06/20/17 10:50 94 06/20/17 10:00 96 Simple Mask 3.00 06/20/17 09:45 96 Simple Mask 3.00 06/20/17 09:41 97 06/20/17 09:38 97.3 89 16 94/53 97 06/20/17 09:25 98.6 91 16 112/21 97 06/20/17 08:04 97 Simple Mask 6.00 06/20/17 08:00 95.4 86 17 105/52 (69) 97 I/O 06/20/17 06/20/17 06/20/17 06/21/17 06/21/17 06/21/17 06:59 14:59 22:59 06:59 14:59 22:59 Intake Total 0 ml 725 ml 810 ml 770 ml Output Total 500 ml 300 ml 300 ml 325 ml Balance -500 ml 425 ml 510 ml 445 ml Intake Oral 0 ml 360 ml 0 ml IV Total 50 ml 770 ml Packed Cells 400 ml 400 ml Blood Product IV Normal Saline Flush 325 ml Output Urine Total 500 ml 300 ml 300 ml 325 ml # Bowel Movements 0 0 0 0 Result Diagram: 06/20/17 1559 06/20/17 0610 Imaging Last 24 hours Impressions Femur X-Ray 06/19/17 0902 Signed Impressions: Service Date/Time: Monday, June 19, 2017 09:59 - CONCLUSION: 1. No acute fracture or dislocation. Vinayak Frye MD Objective Remarks Awake, alert, anxious at baseline RLE: +logroll, NVI distally Assessment & Plan Problem List: (1) Closed right hip fracture ICD Codes: S72.001A - Fracture of unspecified part of neck of right femur, initial encounter for closed fracture Status: Acute Qualifiers: Qualified Codes: S72.001A - Fracture of unspecified part of neck of right femur, initial encounter for closed fracture Assessment and Plan 67yo F with basicervical femur fracture 1. Plan for surgery today. 2. Please keep NPO. 3. Currently scheduled at 3 4. Consents signed in chart Odessa Jalloh MD Jun 21, 2017 07:28
[2017-06-21] MEDS: DOCUSATE SODIUM 50 MG/SENNA 8.6 MG TAB PO SCH ×2 (08:44→21:00)
[2017-06-21] MEDS: FAMOTIDINE 20 MG TAB PO SCH ×2 (08:44→22:14)
[2017-06-21] MEDS: SODIUM CHLORIDE 0.9% FLUSH 10 ML FLUSH IV FLUSH SCH ×3 (08:50→22:15)
[2017-06-21] MEDS ORDERED: INFLUENZA VIRUS VACCINE (QUADRIVALENT) 0.5 ML SYR IM ONE (09:00)
[2017-06-21] MEDS: RESP: ALBUTEROL 2.5 MG/IPRATROPIUM 0.5 MG NEB (SCH) NEB ×3 (09:38→20:42)
--- NOTE | 2017-06-21 11:15 | HHI.PR ---
Subjective Remarks Follow-up right hip fracture 06/19/17-patient seen and examined, and she was in acute respiratory distress after returning from [facility]. Patient was given pain medication prior to x- ray. Overnight as patient was being transfused 1 units June 17 she spiked a temp for which blood transfusion was stopped. Otherwise no other issues 06/20/17-patient seen and examined; Respiratory sxs improved this AM; ovenright she refused BIPAP; NPO this AM 06/21/17-patient seen and examined, surgery has been postponed until today. She reports significant improvement of shortness of breath after receiving total of 2 units of PRBC yesterday. No acute event overnight. Objective Vitals Vital Signs Date Time Temp Pulse Resp B/P (MAP) Pulse Ox O2 Delivery O2 Flow Rate FiO2 06/21/17 09:48 93 06/21/17 09:41 Nasal Cannula 1.00 06/21/17 09:35 93 Nasal Cannula 1.00 06/21/17 06:44 Nasal Cannula 1.00 06/21/17 04:10 96.3 92 19 144/65 (91) 94 06/21/17 00:50 98.0 92 19 130/67 (88) 93 06/20/17 23:00 103 06/20/17 21:18 97.0 66 18 129/72 96 06/20/17 20:32 94 Nasal Cannula 1.00 06/20/17 20:30 97.7 107 18 123/60 (81) 93 06/20/17 20:00 102 06/20/17 20:00 93 Nasal Cannula 1.00 06/20/17 18:42 95.6 98 17 116/50 94 06/20/17 18:28 97.2 100 16 134/66 93 06/20/17 15:43 93 Nasal Cannula 1.00 06/20/17 15:33 95.6 95 17 133/58 (83) 93 06/20/17 11:14 96.7 96 17 134/61 (85) 96 I/O 06/20/17 06/20/17 06/20/17 06/21/17 06/21/17 06/21/17 07:00 15:00 23:00 07:00 15:00 23:00 Intake Total 0 ml 725 ml 810 ml 770 ml Output Total 500 ml 300 ml 300 ml 325 ml Balance -500 ml 425 ml 510 ml 445 ml Intake Oral 0 ml 360 ml 0 ml IV Total 50 ml 770 ml Packed Cells 400 ml 400 ml Blood Product IV Normal Saline Flush 325 ml Output Urine Total 500 ml 300 ml 300 ml 325 ml # Bowel Movements 0 0 0 0 Result Diagram: 06/20/17 1559 06/20/17 0610 Imaging Last Impressions Femur X-Ray 06/19/17 0902 Signed Impressions: Service Date/Time: Monday, June 19, 2017 09:59 - CONCLUSION: 1. No acute fracture or dislocation. Vinayak Frye MD Chest X-Ray 06/19/17 0053 Signed Impressions: Service Date/Time: Monday, June 19, 2017 01:04 - CONCLUSION: No acute disease Mann Villa MD CT Angiography 06/19/17 0000 Signed Impressions: Service Date/Time: Monday, June 19, 2017 16:29 - CONCLUSION: 1. No CT evidence for pulmonary artery embolism through the segmental level. 2. Moderate upper lobe predominant centrilobular emphysema. 3. Mild bilateral lower lobe airspace consolidation. This may reflect atelectasis, particularly in the left lower lobe given the large hiatal hernia. However, differential considerations include aspiration. 4. Large hiatal hernia. Vinayak Frye MD Hip and Pelvis X-Ray 06/18/17 9287 Signed Impressions: Service Date/Time: Monday, June 19, 2017 00:28 - CONCLUSION: Mildly angulated and impacted basicervical right femoral neck fracture Mann Villa MD Objective Remarks GENERAL: NAD SKIN: Warm and dry. HEAD: Normocephalic. EYES: No scleral icterus. No injection or drainage. NECK: Supple, trachea midline. No JVD or lymphadenopathy. CARDIOVASCULAR: Regular rate and rhythm without murmurs, gallops, or rubs. RESPIRATORY: Breath sounds decreased bilaterally. No accessory muscle use. GASTROINTESTINAL: Abdomen soft, non-tender, nondistended. MUSCULOSKELETAL: No cyanosis, or edema. BACK: Nontender without obvious deformity. No CVA tenderness. A/P Problem List: (1) Fall ICD Code: W19.XXXA - Unspecified fall, initial encounter (2) Closed right hip fracture ICD Code: S72.001A - Fracture of unspecified part of neck of right femur, initial encounter for closed fracture Status: Acute (3) Anemia ICD Code: D64.9 - Anemia, unspecified Status: Acute (4) Leukocytosis ICD Code: D72.829 - Elevated white blood cell count, unspecified (5) HTN (hypertension) ICD Code: I10 - Essential (primary) hypertension (6) Tobacco abuse ICD Code: Z72.0 - Tobacco use Assessment and Plan 67-year-old female with 1. Fall: s/p mechanical slip and fall while getting out of the shower, no LOC or head trauma. 2. Right Hip Fx: secondary to above. Hip X-ray w/ mildly angulate and impacted right femoral neck fracture. Appreciate input from orthopedic surgery. NPO, IVF, analgesics/antiemetics. Plan for repair today 06/21/17 as this has been postponed twice 3. Anemia of Chronic disease: Transfused 2 unit PRBC total 06/20/17 4. Leukocytosis: WBC 14, likely secondary to fall/injury. No signs of infection. CXR w/ no acute findings. U/a negative for UTI. 5. HTN: Continue BP med 6. DVT Prophylaxis: Anticoagulation post-op per Ortho 7. Acute Respiratory failure-Improved CTA negative for PE BIPAP ordered overnight Scheduled and PRN Duo Nebs Problem Qualifiers (1) Closed right hip fracture: Qualified Codes: S72.001A - Fracture of unspecified part of neck of right femur , initial encounter for closed fracture (2) Anemia: Qualified Codes: D64.9 - Anemia, unspecified Giovani Mora MD Jun 21, 2017 11:15
[2017-06-21] MEDS ORDERED: GLYCOPYRROLATE 1 MG/5 ML SYRINGE IV PUSH ONE (12:00)
[2017-06-21] MEDS ORDERED: LIDOCAINE HCL 1% PF 5 ML AMPULE OTHER ONE (12:00)
[2017-06-21] MEDS ORDERED: ONDANSETRON HCL 4 MG/2 ML VIAL IV PUSH ONE (12:00)
[2017-06-21] MEDS ORDERED: PROPOFOL 200 MG/20 ML AMP IV ONE (12:00)
[2017-06-21] MEDS ORDERED: PHENYLEPH/NS 1000 MCG/10 ML SYR IV ONE (12:00)
[2017-06-21] MEDS ORDERED: NEOSTIGMINE 3 MG/3 ML SYR IV ONE (12:00)
[2017-06-21] MEDS ORDERED: ROCURONIUM INJ 50 MG/5 ML SYRINGE IV PUSH ONE (12:00)
[2017-06-21] MEDS ORDERED: GENTAMICIN SULFATE 80 MG/2 ML VIAL ONE (14:30)
[2017-06-21] MEDS ORDERED: ceFAZolin 2 GM PREMIX 50 ML ONE (15:44)
--- NOTE | 2017-06-21 17:13 | HHI.PR ---
cc: Odessa Jalloh MD Immediate Post Op Note Procedure Date: Jun 21, 2017 Pre Op Diagnosis: Right basicervical femoral neck fracture Post Op Diagnosis: same Surgeon: Odessa Jalloh [employer] Laborer(s): Ike Rodriguez Procedure: IMN right basicervical femoral neck fracture Complications: none Specimen(s) removed: none Estimated blood loss: 75mL Anesthesia: General Drains: None Patient to: PACU Patient Condition: Good Implant/Devices: SEE IMPLANT LOG (if applicable) Date/Time of Procedure: SEE SURGICAL CARE RECORD Odessa Jalloh MD Jun 21, 2017 17:13
[2017-06-21] MEDS ORDERED: SODIUM CHLORIDE 0.9% FLUSH 10 ML FLUSH IV FLUSH PRN (17:15)
[2017-06-21] MEDS ORDERED: Post-op Orders (for Pharmacy) MISC XX ONE (17:15)
--- NOTE | 2017-06-21 17:33 | RADRPT ---
EXAM DATE/TIME: 06/21/2017 16:03 [facility] COMPARISON: No previous studies available for comparison. INDICATIONS : ORIF rt hip. MEDICAL HISTORY : None. SURGICAL HISTORY : None. ENCOUNTER: Subsequent ACUITY: 1 day PAIN SCORE: Non-responsive. LOCATION: Right Hip FINDINGS: Status post open reduction internal fixation right hip in anatomic alignment. CONCLUSION: Anatomic alignment. Edison Will MD FACR on June 21, 2017 at 17:31 Board Certified Radiologist. This report was verified electronically.
[2017-06-21] MEDS ORDERED: RESP: ALBUTEROL 2.5 MG/3 ML NEB (SCH) INH ONE (17:34)
[2017-06-21] MEDS ORDERED: LORazepam 2 MG/ML VIAL IV ONE (17:34)
[2017-06-21] MEDS ORDERED: DO NOT ADM ANY ANTICOAGULANT DRUGS PRN (17:44)
[2017-06-21] MEDS ORDERED: *RESP: ALBUTEROL 2.5 MG/3 ML NEB (PRN) PERIprocedural Use ONLY NEB ONE (17:48)
[2017-06-21] MEDS ORDERED: methylPREDNISolone SOD SUCC 125 MG/2 ML VIAL ONE (17:54)
[2017-06-21] MEDS ORDERED: LORazepam 2 MG/ML VIAL ONE (17:54)
[2017-06-21 18:28] LABS: AUTOMATED NEUTROPHIL # 8.6 TH/MM3 (1.8-7.7); BASOPHIL % 0.4 % (0.0-2.0); EOSINOPHIL # 0.3 TH/MM3 (0-0.4); EOSINOPHIL % 2.4 % (0.0-4.0); HEMO FLAGS DIFF FINAL; LYMPH % 22.3 % (9.0-44.0); MEAN CELL VOLUME 67.6 FL (80.0-100.0); MEAN CORPUSCULAR HEMOGLOBIN 19.5 PG (27.0-34.0); MONO % 10.1 % (0.0-8.0); NEUT % 64.8 % (16.0-70.0); PLATELET COUNT 254 TH/MM3 (150-450); RED BLOOD COUNT 4.29 MIL/MM3 (4.00-5.30); RED CELL DISTRIBUTION WIDTH 22.8 % (11.6-17.2); WHITE BLOOD COUNT 13.2 TH/MM3 (4.0-11.0)
[2017-06-21 18:36] LABS: MEAN CORPUSCULAR HGB CONC 28.8 % (32.0-36.0)
[2017-06-21 19:02] LABS: BLOOD GAS BASE EXCESS -3.7 mmol/L (-2-2); BLOOD GAS HCO3 22 mmol/L (22-26); BLOOD GAS METHEMOGLOBIN 1.2 % (0-2); BLOOD GAS O2 HGB SATURATION 88 % (90-100); BLOOD GAS OXYGEN CONTENT 10.4 Vol % (12.0-20.0); BLOOD GAS PCO2 52 mmHg (38-42); BLOOD GAS PO2 70 mmHg (61-120); BLOOD GAS TOTAL HGB 8.3 G/DL (12.0-16.0); CRITICAL VALUE YES; DRAW SITE LT RADIAL; LITER FLOW 4 L/M; NUMBER OF ARTERIAL PUNCTURES 1; OXYGEN DEVICE NASAL CANNULA; STAT YES; TEMP CORR TO 98.6
--- NOTE | 2017-06-21 19:41 | RADRPT ---
EXAM DATE/TIME: 06/21/2017 18:11 [facility] COMPARISON: HIP RIGHT (AP&LAT 2/3VWS) WO AP PELVIS, June 21, 2017, 16:03. INDICATIONS : Status post ORIF rt hip. MEDICAL HISTORY : None. SURGICAL HISTORY : None. ENCOUNTER: Subsequent ACUITY: 1 day PAIN SCORE: Non-responsive. LOCATION: Right Hip FINDINGS: A two view examination of the right hip was performed. Status post internal fixation of the right hip . There is good position and alignment of the bony structures. No joint dislocation.. CONCLUSION: Good position and alignment on this postoperative study. Mg Jefferson MD on June 21, 2017 at 19:39 Board Certified Radiologist. This report was verified electronically.
--- NOTE | 2017-06-21 20:18 | RADRPT ---
EXAM DATE/TIME: 06/21/2017 19:57 [facility] COMPARISON: CT PULMONARY ANGIOGRAM, June 19, 2017, 16:29. CHEST SINGLE AP, June 19, 2017, 1:04. INDICATIONS : Post op respiratory distress. MEDICAL HISTORY : None. SURGICAL HISTORY : None. ENCOUNTER: Initial ACUITY: 1 day PAIN SCORE: 0/10 LOCATION: Bilateral chest FINDINGS: A single view of the chest demonstrates the lungs to be symmetrically aerated without evidence of mas s, infiltrate or effusion. The cardiomediastinal contours are unremarkable. Osseous structures are intact. There is a hiatal hernia on the left side. This is unchanged compared to the prior study. CONCLUSION: 1. No acute pulmonary infiltrates. 2. Moderate left-sided hiatal hernia. Mg Jefferson MD on June 21, 2017 at 20:15 Board Certified Radiologist. This report was verified electronically.
[2017-06-21] MEDS ORDERED: DIMETHICONE/OXYBENZONE/PADMIATE LIP BALM 4.25 GM TOPICAL ONE (20:19)
[2017-06-21 20:58] LABS: BLOOD GAS BASE EXCESS 1.1 mmol/L (-2-2); BLOOD GAS HCO3 26 mmol/L (22-26); BLOOD GAS METHEMOGLOBIN 1.1 % (0-2); BLOOD GAS O2 HGB SATURATION 86 % (90-100); BLOOD GAS OXYGEN CONTENT 9.9 Vol % (12.0-20.0); BLOOD GAS PCO2 49 mmHg (38-42); BLOOD GAS PO2 61 mmHg (61-120); BLOOD GAS TOTAL HGB 8.1 G/DL (12.0-16.0); TEMP CORR TO 98.6
[2017-06-21 20:59] LABS: CRITICAL VALUE YES; DRAW SITE LT RADIAL; LITER FLOW 2 L/M; NUMBER OF ARTERIAL PUNCTURES 2; OXYGEN DEVICE NASAL CANNULA; STAT NO
[2017-06-22] VITALS (12 sets, daily range): BP systolic 115–175; BP diastolic 62–85; PULSE 63–111; RESP 17–18; TEMP 96.7–99.3; O2SAT 94–96
[2017-06-22] MEDS: KETOROLAC TROMETHAMINE 30 MG/ML (IVP) VIAL IV PUSH PRN ×2 (02:42→14:23)
[2017-06-22] MEDS: methylPREDNISolone SOD SUCC 40 MG/1 ML VIAL IV PUSH SCH ×4 (02:42→17:44)
[2017-06-22] MEDS: PIPERACIL-TAZO 3.375 GM PREMIX 50 ML IV SCH ×3 (05:02→21:27)
[2017-06-22] MEDS: ENOXAPARIN SODIUM 40 MG/0.4 ML SYRINGE SQ SCH ×2 (05:06→17:44)
[2017-06-22] MEDS: ACETAMINOPHEN/HYDROcodone 325 MG/5 MG TAB PO PRN (06:05)
[2017-06-22] MEDS: RESP: ALBUTEROL 2.5 MG/IPRATROPIUM 0.5 MG NEB (SCH) NEB ×2 (07:45→14:00)
[2017-06-22] MEDS ORDERED: INFLUENZA VIRUS VACCINE (QUADRIVALENT) 0.5 ML SYR IM ONE (09:00)
[2017-06-22] MEDS: PANTOPRAZOLE SOD 40 MG DELAYED RELEASE TAB PO SCH (10:02)
[2017-06-22] MEDS: FAMOTIDINE 20 MG TAB PO SCH (10:02)
[2017-06-22] MEDS: DOCUSATE SODIUM 50 MG/SENNA 8.6 MG TAB PO SCH ×2 (10:02→21:27)
[2017-06-22] MEDS: SODIUM CHLOR 0.9% 1000 ML INJ 1,000 ML IV SCH (10:13)
--- NOTE | 2017-06-22 10:39 | PD.ORT.PN ---
Subjective Subjective Remarks Patient reports only mild discomfort/ache in her right hip today, improved since before surgery Objective Vitals Vital Signs Date Time Temp Pulse Resp B/P (MAP) Pulse Ox O2 Delivery O2 Flow Rate FiO2 06/22/17 10:20 96 Nasal Cannula 3.00 06/22/17 08:15 98.1 96 18 135/66 (89) 94 06/22/17 04:47 97.6 95 18 145/64 (91) 95 06/22/17 00:25 97.0 99 18 135/62 (86) 95 06/21/17 22:05 97.6 104 18 126/58 (80) 93 06/21/17 21:30 97 16 139/65 (89) 92 Nasal Cannula 2 06/21/17 21:15 98 14 139/68 (91) 92 Nasal Cannula 2 06/21/17 21:00 97.6 95 10 137/65 (89) 90 Nasal Cannula 2 06/21/17 20:45 99 18 134/69 (90) 91 Nasal Cannula 2 06/21/17 20:30 94 12 157/74 (101) 95 Nasal Cannula 2 06/21/17 20:15 96 14 148/66 (93) 88 Nasal Cannula 2 06/21/17 20:00 97.9 97 12 108/57 (74) 93 Nasal Cannula 2 06/21/17 19:45 96 16 103/57 (72) 94 Nasal Cannula 2 06/21/17 19:30 98 14 135/62 (86) 91 Nasal Cannula 4 06/21/17 19:15 97 16 120/55 (76) 87 Nasal Cannula 4 06/21/17 19:00 95 17 139/65 (89) 89 Nasal Cannula 4 06/21/17 18:45 97 17 142/66 (91) 89 Nasal Cannula 4 06/21/17 18:40 Nasal Cannula 4 06/21/17 18:30 99 29 135/66 (89) 96 Non-Rebreather 100 06/21/17 18:15 101 14 145/60 (88) 95 Non-Rebreather 100 06/21/17 18:00 104 18 135/61 (85) 80 Non-Rebreather 100 06/21/17 17:45 107 24 103/53 (70) 87 Simple Mask 6 06/21/17 17:44 97.2 108 24 153/105 (121) 87 Simple Mask 6 06/21/17 12:00 97.3 92 17 149/66 (93) 93 I/O 06/21/17 06/21/17 06/21/17 06/22/17 06/22/17 06/22/17 06:59 14:59 22:59 06:59 14:59 22:59 Intake Total 770 ml 0 ml 1612 ml 1090 ml Output Total 325 ml 500 ml 1175 ml 1600 ml Balance 445 ml -500 ml 437 ml -510 ml Intake Oral 0 ml 0 ml 662 ml 360 ml IV Total 770 ml 50 ml 730 ml Other 900 ml Output Urine Total 325 ml 500 ml 1100 ml 1600 ml Estimated Blood Loss 75 ml # Bowel Movements 0 0 Result Diagram: 06/21/17 1810 06/20/17 0610 Imaging Last 24 hours Impressions Femur X-Ray 06/19/17 0902 Signed Impressions: Service Date/Time: Monday, June 19, 2017 09:59 - CONCLUSION: 1. No acute fracture or dislocation. Vinayak Frye MD Objective Remarks Awake, alert, anxious at baseline RLE: minimal TTP about hip. Dressing intact without significant drainage. NVI distally Assessment & Plan Problem List: (1) Closed right hip fracture ICD Codes: S72.001A - Fracture of unspecified part of neck of right femur, initial encounter for closed fracture Status: Acute Qualifiers: Qualified Codes: S72.001A - Fracture of unspecified part of neck of right femur, initial encounter for closed fracture Assessment and Plan 67yo F with basicervical femur fracture, POD#1 1. WBAT RLE 2. PT for mobilization 3. Lovenox while in hospital, then Xarelto upon discharge 4. Ok for dressing changes starting POD#2 Odessa Jalloh MD Jun 22, 2017 10:39
--- NOTE | 2017-06-22 12:26 | HHI.PR ---
Subjective Remarks Follow-up right hip fracture 06/19/17-patient seen and examined, and she was in acute respiratory distress after [place] [facility]. Patient was given pain medication prior to x- ray. Overnight as patient was being transfused 1 units June 17 she spiked a temp for which blood transfusion was stopped. Otherwise no other issues 06/20/17-patient seen and examined; Respiratory sxs improved this AM; ovenright she refused BIPAP; NPO this AM 06/21/17-patient seen and examined, surgery has been postponed until today. She reports significant improvement of shortness of breath after receiving total of 2 units of PRBC yesterday. No acute event overnight. 06/22/17-patient seen and examined, she status post IM right hip pain is tolerable and patient denies any shortness of breath Objective Vitals Vital Signs Date Time Temp Pulse Resp B/P (MAP) Pulse Ox O2 Delivery O2 Flow Rate FiO2 06/22/17 12:12 98.2 102 18 129/69 (89) 95 06/22/17 10:20 96 Nasal Cannula 3.00 06/22/17 08:15 98.1 96 18 135/66 (89) 94 06/22/17 08:00 78 06/22/17 04:47 97.6 95 18 145/64 (91) 95 06/22/17 00:25 97.0 99 18 135/62 (86) 95 06/21/17 22:05 97.6 104 18 126/58 (80) 93 06/21/17 21:30 97 16 139/65 (89) 92 Nasal Cannula 2 06/21/17 21:15 98 14 139/68 (91) 92 Nasal Cannula 2 06/21/17 21:00 97.6 95 10 137/65 (89) 90 Nasal Cannula 2 06/21/17 20:45 99 18 134/69 (90) 91 Nasal Cannula 2 06/21/17 20:30 94 12 157/74 (101) 95 Nasal Cannula 2 06/21/17 20:15 96 14 148/66 (93) 88 Nasal Cannula 2 06/21/17 20:00 97.9 97 12 108/57 (74) 93 Nasal Cannula 2 06/21/17 19:45 96 16 103/57 (72) 94 Nasal Cannula 2 06/21/17 19:30 98 14 135/62 (86) 91 Nasal Cannula 4 06/21/17 19:15 97 16 120/55 (76) 87 Nasal Cannula 4 06/21/17 19:00 95 17 139/65 (89) 89 Nasal Cannula 4 06/21/17 18:45 97 17 142/66 (91) 89 Nasal Cannula 4 06/21/17 18:40 Nasal Cannula 4 06/21/17 18:30 99 29 135/66 (89) 96 Non-Rebreather 100 06/21/17 18:15 101 14 145/60 (88) 95 Non-Rebreather 100 06/21/17 18:00 104 18 135/61 (85) 80 Non-Rebreather 100 06/21/17 17:45 107 24 103/53 (70) 87 Simple Mask 6 06/21/17 17:44 97.2 108 24 153/105 (121) 87 Simple Mask 6 I/O 06/21/17 06/21/17 06/21/17 06/22/17 06/22/17 06/22/17 07:00 15:00 23:00 07:00 15:00 23:00 Intake Total 770 ml 0 ml 1612 ml 1090 ml Output Total 325 ml 500 ml 1175 ml 1600 ml Balance 445 ml -500 ml 437 ml -510 ml Intake Oral 0 ml 0 ml 662 ml 360 ml IV Total 770 ml 50 ml 730 ml Other 900 ml Output Urine Total 325 ml 500 ml 1100 ml 1600 ml Estimated Blood Loss 75 ml # Bowel Movements 0 0 Result Diagram: 06/21/17 1810 06/20/17 0610 Imaging Last Impressions Hip X-Ray 06/21/17 0000 Signed Impressions: Service Date/Time: Wednesday, June 21, 2017 16:03 - CONCLUSION: Anatomic alignment. Edison Will MD FACR Chest X-Ray 06/21/17 0000 Signed Impressions: Service Date/Time: Wednesday, June 21, 2017 19:57 - CONCLUSION: 1. No acute pulmonary infiltrates. 2. Moderate left-sided hiatal hernia. Mg Jefferson MD Femur X-Ray 06/19/17 0902 Signed Impressions: Service Date/Time: Monday, June 19, 2017 09:59 - CONCLUSION: 1. No acute fracture or dislocation. Vinayak Frye MD CT Angiography 06/19/17 0000 Signed Impressions: Service Date/Time: Monday, June 19, 2017 16:29 - CONCLUSION: 1. No CT evidence for pulmonary artery embolism through the segmental level. 2. Moderate upper lobe predominant centrilobular emphysema. 3. Mild bilateral lower lobe airspace consolidation. This may reflect atelectasis, particularly in the left lower lobe given the large hiatal hernia. However, differential considerations include aspiration. 4. Large hiatal hernia. Vinayak Frye MD Hip and Pelvis X-Ray 06/18/17 2357 Signed Impressions: Service Date/Time: Monday, June 19, 2017 00:28 - CONCLUSION: Mildly angulated and impacted basicervical right femoral neck fracture Mann Villa MD Objective Remarks GENERAL: NAD SKIN: Warm and dry. HEAD: Normocephalic. EYES: No scleral icterus. No injection or drainage. NECK: Supple, trachea midline. No JVD or lymphadenopathy. CARDIOVASCULAR: Regular rate and rhythm without murmurs, gallops, or rubs. RESPIRATORY: Breath sounds decreased bilaterally. No accessory muscle use. GASTROINTESTINAL: Abdomen soft, non-tender, nondistended. MUSCULOSKELETAL: No cyanosis, or edema. Right hip repair-neurovascular intact BACK: Nontender without obvious deformity. No CVA tenderness. Procedures Status post IMN right basicervical femoral neck fracture 06/21/17 A/P Problem List: (1) Fall ICD Code: W19.XXXA - Unspecified fall, initial encounter (2) Closed right hip fracture ICD Code: S72.001A - Fracture of unspecified part of neck of right femur, initial encounter for closed fracture Status: Acute (3) Anemia ICD Code: D64.9 - Anemia, unspecified Status: Acute (4) Leukocytosis ICD Code: D72.829 - Elevated white blood cell count, unspecified (5) HTN (hypertension) ICD Code: I10 - Essential (primary) hypertension (6) Tobacco abuse ICD Code: Z72.0 - Tobacco use Assessment and Plan 67-year-old female with 1. Fall: s/p mechanical slip and fall while getting out of the shower, no LOC or head trauma. 2. Right Hip Fx: Status post IMN right basicervical femoral neck fracture 06/21/17 Management per orthopedic surgery Continue with current pain management Lovenox for DVT prophylaxis Incentive spirometry at bedside 3. Anemia of Chronic disease: Transfused 2 unit PRBC total 06/20/17 4. Leukocytosis: WBC 14, likely secondary to fall/injury. No signs of infection. CXR w/ no acute findings. U/a negative for UTI. 5. HTN: Continue BP med 6. DVT Prophylaxis: Lovenox 7. Acute Respiratory failure-Improved CTA negative for PE BIPAP ordered overnight Scheduled and PRN Duo Nebs Problem Qualifiers (1) Closed right hip fracture: Qualified Codes: S72.001A - Fracture of unspecified part of neck of right femur , initial encounter for closed fracture (2) Anemia: Qualified Codes: D64.9 - Anemia, unspecified Giovani Mora MD Jun 22, 2017 12:26
[2017-06-22] MEDS ORDERED: ALPRAZolam 0.5 MG TAB PO PRN (21:00)
[2017-06-22] MEDS ORDERED: RANITIDINE HCL SYRUP 150 MG/10 ML UDC PO SCH (21:00)
[2017-06-22] MEDS: SODIUM CHLORIDE 0.9% FLUSH 10 ML FLUSH IV FLUSH SCH (21:28)
[2017-06-23] MEDS: ACETAMINOPHEN/HYDROcodone 325 MG/5 MG TAB PO PRN ×4 (01:07→14:45)
[2017-06-23] MEDS: KETOROLAC TROMETHAMINE 30 MG/ML (IVP) VIAL IV PUSH PRN (03:11)
[2017-06-23 04:25] VITALS: BP 147/67; PULSE 98; RESP 18; TEMP 97.7; O2SAT 94
[2017-06-23] MEDS: PIPERACIL-TAZO 3.375 GM PREMIX 50 ML IV SCH ×2 (05:53→13:00)
[2017-06-23] MEDS: ENOXAPARIN SODIUM 40 MG/0.4 ML SYRINGE SQ SCH (05:53)
[2017-06-23] MEDS: methylPREDNISolone SOD SUCC 40 MG/1 ML VIAL IV PUSH SCH ×3 (05:54→12:00)
[2017-06-23] MEDS ORDERED: RANITIDINE HCL SYRUP 150 MG/10 ML UDC PO SCH (06:00)
[2017-06-23 07:44] VITALS: BP 138/65; PULSE 93; RESP 19; TEMP 97; O2SAT 94
[2017-06-23] MEDS: RESP: ALBUTEROL 2.5 MG/IPRATROPIUM 0.5 MG NEB (SCH) NEB (08:00)
[2017-06-23 08:10] VITALS: O2SAT 91
[2017-06-23] MEDS: PANTOPRAZOLE SOD 40 MG DELAYED RELEASE TAB PO SCH (09:15)
[2017-06-23] MEDS: DOCUSATE SODIUM 50 MG/SENNA 8.6 MG TAB PO SCH (09:16)
[2017-06-23] MEDS: SODIUM CHLORIDE 0.9% FLUSH 10 ML FLUSH IV FLUSH SCH (09:17)
[2017-06-23] MEDS ORDERED: XARE10TA PO (09:47)
[2017-06-23] MEDS ORDERED: HYDR-3516 PO (09:47)
[2017-06-23] MEDS ORDERED: COMMODE 3-IN-11 MIS (09:59)
--- NOTE | 2017-06-23 10:03 | HHI.FF ---
Face to Face Verification Diagnosis: (1) Closed right hip fracture Physical Therapy Gait training Hip: Hip fracture, Protocol: Right, Progress to weight bearing Right LE Weight Bearing: WB as tolerated Nursing RN: 3 days/week x 2 weeks Nursing: Dressing changes Dressing Changes: Daily dressing change, Xeroform, Coverderm/Primapore I have seen patient Lisa Gillis on 06/23/17. My clinical findings support the need for the requested home health care services because: Limited ability to care for self I certify that my clinical findings support that this patient is homebound because: Unsteady gait/balance Odessa Jalloh MD Jun 23, 2017 10:03
[2017-06-23] MEDS ORDERED: GETGO ROLLING W1 MI1 (10:04)
--- NOTE | 2017-06-23 10:12 | PD.ORT.PN ---
Subjective Subjective Remarks Patient reports only mild discomfort/ache in her right hip today. Reports she was able to ambulate around the entire floor last night. Objective Vitals Vital Signs Date Time Temp Pulse Resp B/P (MAP) Pulse Ox O2 Delivery O2 Flow Rate FiO2 06/23/17 08:10 91 21 06/23/17 07:44 97.0 93 19 138/65 (89) 94 06/23/17 04:25 97.7 98 18 147/67 (93) 94 06/22/17 23:30 99.3 102 18 145/65 (91) 95 06/22/17 20:35 158/80 (106) 06/22/17 20:20 98.6 111 18 175/85 (115) 95 06/22/17 19:58 95 Nasal Cannula 3.00 06/22/17 19:30 Nasal Cannula 2.00 06/22/17 16:00 99.0 104 18 153/67 (95) 95 06/22/17 12:12 98.2 102 18 129/69 (89) 95 06/22/17 10:20 96 Nasal Cannula 3.00 I/O 06/22/17 06/22/17 06/22/17 06/23/17 06/23/17 06/23/17 07:00 15:00 23:00 07:00 15:00 23:00 Intake Total 1090 ml 530 ml 150 ml 480 ml Output Total 1600 ml Balance -510 ml 530 ml 150 ml 480 ml Intake Oral 360 ml 480 ml 480 ml IV Total 730 ml 50 ml 150 ml Output Urine Total 1600 ml # Voids 1 3 # Bowel Movements 0 0 Result Diagram: 06/21/17 1810 06/20/17 0610 Imaging Last 24 hours Impressions Femur X-Ray 06/19/17 0902 Signed Impressions: Service Date/Time: Monday, June 19, 2017 09:59 - CONCLUSION: 1. No acute fracture or dislocation. Vinayak Frye MD Objective Remarks Awake, alert, NAD. No oxygen at present RLE: minimal TTP about hip. Dressing intact without significant drainage. NVI distally Assessment & Plan Problem List: (1) Closed right hip fracture ICD Codes: S72.001A - Fracture of unspecified part of neck of right femur, initial encounter for closed fracture Status: Acute Qualifiers: Qualified Codes: S72.001A - Fracture of unspecified part of neck of right femur, initial encounter for closed fracture Assessment and Plan 67yo F with basicervical femur fracture, POD#1 1. WBAT RLE 2. PT for mobilization 3. Lovenox while in hospital, then Xarelto upon discharge. Rx in chart. 4. Ok for dressing changes starting POD#2 5. Clear for discharge from ortho standpoint. Follow-up in [address] Shubham Jalloh,Odessa Roth MD Jun 23, 2017 10:12
[2017-06-23] MEDS ORDERED: PERI8.6T PO (10:46)
--- NOTE | 2017-06-23 10:49 | HHI.PR ---
Subjective Remarks Follow-up right hip fracture 06/19/17-patient seen and examined, and she was in acute respiratory distress after [place] [facility]. Patient was given pain medication prior to x- ray. Overnight as patient was being transfused 1 units June 17 she spiked a temp for which blood transfusion was stopped. Otherwise no other issues 06/20/17-patient seen and examined; Respiratory sxs improved this AM; ovenright she refused BIPAP; NPO this AM 06/21/17-patient seen and examined, surgery has been postponed until today. She reports significant improvement of shortness of breath after receiving total of 2 units of PRBC yesterday. No acute event overnight. 06/22/17-patient seen and examined, she status post IM right hip pain is tolerable and patient denies any shortness of breath 06/23/17-patient seen and examined, patient currently with controlled. Denies any chest pain or shortness of breath. She has been clean for discharge by orthopedic surgery. Objective Vitals Vital Signs Date Time Temp Pulse Resp B/P (MAP) Pulse Ox O2 Delivery O2 Flow Rate FiO2 06/23/17 08:10 91 21 06/23/17 07:44 97.0 93 19 138/65 (89) 94 06/23/17 04:25 97.7 98 18 147/67 (93) 94 06/22/17 23:30 99.3 102 18 145/65 (91) 95 06/22/17 20:35 158/80 (106) 06/22/17 20:20 98.6 111 18 175/85 (115) 95 06/22/17 19:58 95 Nasal Cannula 3.00 06/22/17 19:30 Nasal Cannula 2.00 06/22/17 16:00 99.0 104 18 153/67 (95) 95 06/22/17 12:12 98.2 102 18 129/69 (89) 95 I/O 06/22/17 06/22/17 06/22/17 06/23/17 06/23/17 06/23/17 07:00 15:00 23:00 07:00 15:00 23:00 Intake Total 1090 ml 530 ml 150 ml 480 ml Output Total 1600 ml Balance -510 ml 530 ml 150 ml 480 ml Intake Oral 360 ml 480 ml 480 ml IV Total 730 ml 50 ml 150 ml Output Urine Total 1600 ml # Voids 1 3 # Bowel Movements 0 0 Result Diagram: 06/21/17 1810 06/20/17 0610 Imaging Last Impressions Hip X-Ray 06/21/17 0000 Signed Impressions: Service Date/Time: Wednesday, June 21, 2017 16:03 - CONCLUSION: Anatomic alignment. Edison Will MD FACR Chest X-Ray 06/21/17 0000 Signed Impressions: Service Date/Time: Wednesday, June 21, 2017 19:57 - CONCLUSION: 1. No acute pulmonary infiltrates. 2. Moderate left-sided hiatal hernia. Mg Jefferson MD Femur X-Ray 06/19/17 0902 Signed Impressions: Service Date/Time: Monday, June 19, 2017 09:59 - CONCLUSION: 1. No acute fracture or dislocation. Vinayak Frye MD CT Angiography 06/19/17 0000 Signed Impressions: Service Date/Time: Monday, June 19, 2017 16:29 - CONCLUSION: 1. No CT evidence for pulmonary artery embolism through the segmental level. 2. Moderate upper lobe predominant centrilobular emphysema. 3. Mild bilateral lower lobe airspace consolidation. This may reflect atelectasis, particularly in the left lower lobe given the large hiatal hernia. However, differential considerations include aspiration. 4. Large hiatal hernia. Vinayak Frye MD Hip and Pelvis X-Ray 06/18/17 2737 Signed Impressions: Service Date/Time: Monday, June 19, 2017 00:28 - CONCLUSION: Mildly angulated and impacted basicervical right femoral neck fracture Mann Villa MD Objective Remarks GENERAL: NAD SKIN: Warm and dry. HEAD: Normocephalic. EYES: No scleral icterus. No injection or drainage. NECK: Supple, trachea midline. No JVD or lymphadenopathy. CARDIOVASCULAR: Regular rate and rhythm without murmurs, gallops, or rubs. RESPIRATORY: Breath sounds decreased bilaterally. No accessory muscle use. GASTROINTESTINAL: Abdomen soft, non-tender, nondistended. MUSCULOSKELETAL: No cyanosis, or edema. Right hip repair-neurovascular intact BACK: Nontender without obvious deformity. No CVA tenderness. Procedures Status post IMN right basicervical femoral neck fracture 06/21/17 A/P Problem List: (1) Fall ICD Code: W19.XXXA - Unspecified fall, initial encounter (2) Closed right hip fracture ICD Code: S72.001A - Fracture of unspecified part of neck of right femur, initial encounter for closed fracture Status: Acute (3) Anemia ICD Code: D64.9 - Anemia, unspecified Status: Acute (4) Leukocytosis ICD Code: D72.829 - Elevated white blood cell count, unspecified (5) HTN (hypertension) ICD Code: I10 - Essential (primary) hypertension (6) Tobacco abuse ICD Code: Z72.0 - Tobacco use Assessment and Plan 67-year-old female with 1. Fall: s/p mechanical slip and fall while getting out of the shower, no LOC or head trauma. 2. Right Hip Fx: Status post IMN right basicervical femoral neck fracture 06/21/17 Management per orthopedic surgery Continue with current pain management Lovenox for DVT prophylaxis however will discharge home on Xarelto Incentive spirometry at bedside 3. Anemia of Chronic disease: Transfused 2 unit PRBC total 06/20/17 4. Leukocytosis: WBC 14, likely secondary to fall/injury. No signs of infection. CXR w/ no acute findings. U/a negative for UTI. 5. HTN: Continue BP med 6. DVT Prophylaxis: Lovenox 7. Acute Respiratory failure-Improved CTA negative for PE BIPAP ordered overnight Scheduled and PRN Duo Nebs Problem Qualifiers (1) Closed right hip fracture: Qualified Codes: S72.001A - Fracture of unspecified part of neck of right femur , initial encounter for closed fracture (2) Anemia: Qualified Codes: D64.9 - Anemia, unspecified Giovani Mora MD Jun 23, 2017 10:49
--- NOTE | 2017-06-23 10:52 | HHI.DS ---
Discharge Summary Admission Date Jun 19, 2017 at 01:04 Discharge Date: Jun 23, 2017 Admitting Diagnosis right hip fracture (1) Fall ICD Code: W19.XXXA - Unspecified fall, initial encounter (2) Closed right hip fracture ICD Code: S72.001A - Fracture of unspecified part of neck of right femur, initial encounter for closed fracture Status: Acute (3) Anemia ICD Code: D64.9 - Anemia, unspecified Status: Acute (4) Leukocytosis ICD Code: D72.829 - Elevated white blood cell count, unspecified (5) HTN (hypertension) ICD Code: I10 - Essential (primary) hypertension (6) Tobacco abuse ICD Code: Z72.0 - Tobacco use Procedures Status post IMN right basicervical femoral neck fracture 06/21/17 Brief History - From Admission This is a 67-year-old female with a PMH of Hepatitis C and Tobacco Abuse who was brought to the ER by EMS secondary to complaints of right hip pain following a fall. Patient states she was getting out of the shower and had mechanical slip and fall onto her right leg, immediate pain following fall, unable to bear weight. Denies LOC or head trauma. On arrival, BP 177/79, HR 96 , O2 sat 96% on RA, Afebrile. W WBC 14.9. Hemoglobin 7.2, and appears labs for comparison. Chemistry essentially unremarkable sipper GFR 70. INR 1.0. A- . CXR with no acute findings. Hip X-ray with mildly angulated and impacted right femoral neck fracture. CBC/BMP: 06/21/17 1810 06/20/17 0610 Significant Findings Laboratory Tests Test 06/20/17 15:59 06/21/17 18:10 06/21/17 18:42 06/21/17 20:42 White Blood Count 21.0 TH/MM3 (4.0-11.0) 13.2 TH/MM3 (4.0-11.0) Hemoglobin 7.6 GM/DL (11.6-15.3) 8.3 GM/DL (11.6-15.3) Hematocrit 26.6 % (35.0-46.0) 29.0 % (35.0-46.0) Mean Corpuscular Volume 66.1 FL (80.0-100.0) 67.6 FL (80.0-100.0) Mean Corpuscular Hemoglobin 18.9 PG (27.0-34.0) 19.5 PG (27.0-34.0) Mean Corpuscular Hemoglobin Concent 28.6 % (32.0-36.0) 28.8 % (32.0-36.0) Red Cell Distribution Width 21.7 % (11.6-17.2) 22.8 % (11.6-17.2) Neutrophils (%) (Auto) 84.5 % (16.0-70.0) Lymphocytes (%) (Auto) 7.9 % (9.0-44.0) Neutrophils # (Auto) 17.8 TH/MM3 (1.8-7.7) 8.6 TH/MM3 (1.8-7.7) Monocytes # (Auto) 1.6 TH/MM3 (0-0.9) 1.3 TH/MM3 (0-0.9) Monocytes (%) (Auto) 10.1 % (0.0-8.0) Blood Gas Base Excess -3.7 mmol/L (-2-2) Blood Gas Oxygen Saturation 88 % (90-100) 86 % (90-100) Arterial Blood pH 7.26 (7.380-7.420) 7.35 (7.380-7.420) Arterial Blood Partial Pressure CO2 52 mmHg (38-42) 49 mmHg (38-42) Arterial Blood Oxygen Content 10.4 Vol % (12.0-20.0) 9.9 Vol % (12.0-20.0) Blood Gas Hemoglobin 8.3 G/DL (12.0-16.0) 8.1 G/DL (12.0-16.0) Imaging Last Impressions Hip X-Ray 06/21/17 0000 Signed Impressions: Service Date/Time: Wednesday, June 21, 2017 16:03 - CONCLUSION: Anatomic alignment. Edison Will MD FACR Chest X-Ray 06/21/17 0000 Signed Impressions: Service Date/Time: Wednesday, June 21, 2017 19:57 - CONCLUSION: 1. No acute pulmonary infiltrates. 2. Moderate left-sided hiatal hernia. Mg Jefferson MD Femur X-Ray 06/19/17 0902 Signed Impressions: Service Date/Time: Monday, June 19, 2017 09:59 - CONCLUSION: 1. No acute fracture or dislocation. Vinayak Frye MD CT Angiography 06/19/17 0000 Signed Impressions: Service Date/Time: Monday, June 19, 2017 16:29 - CONCLUSION: 1. No CT evidence for pulmonary artery embolism through the segmental level. 2. Moderate upper lobe predominant centrilobular emphysema. 3. Mild bilateral lower lobe airspace consolidation. This may reflect atelectasis, particularly in the left lower lobe given the large hiatal hernia. However, differential considerations include aspiration. 4. Large hiatal hernia. Vinayak Frye MD Hip and Pelvis X-Ray 06/18/17 2357 Signed Impressions: Service Date/Time: Monday, June 19, 2017 00:28 - CONCLUSION: Mildly angulated and impacted basicervical right femoral neck fracture Mann Villa MD PE at Discharge GENERAL: NAD SKIN: Warm and dry. HEAD: Normocephalic. EYES: No scleral icterus. No injection or drainage. NECK: Supple, trachea midline. No JVD or lymphadenopathy. CARDIOVASCULAR: Regular rate and rhythm without murmurs, gallops, or rubs. RESPIRATORY: Breath sounds decreased bilaterally. No accessory muscle use. GASTROINTESTINAL: Abdomen soft, non-tender, nondistended. MUSCULOSKELETAL: No cyanosis, or edema. Right hip repair-neurovascular intact BACK: Nontender without obvious deformity. No CVA tenderness. Hospital Course Patient admitted secondary to right hip fracture for which orthopedic surgery was consulted. However secondary to respiratory distress due to narcotics surgery was postponed. Patient responded well to steroid as well as bronchodilator treatment. Patient was transfused 2 units packed red blood cell monitoring of H&H. She underwent IMN right basicervical femoral neck fracture 06/21/17. Postoperatively DVT prophylaxis was provided in physical therapy was consulted. Pain medication was provided accordingly. Prior to discharge, patient conditions improved her vitals remained stable. Pt Condition on Discharge: Stable Discharge Disposition: Disch w/ Home Health Serv Discharge Time: > 30 minutes Discharge Instructions DIET: Follow Instructions for: Heart Healthy Diet Activities you can perform: Regular-No Restrictions Follow up Referrals: Orthopedics - 2 Weeks @ [facility] with Odessa Jalloh MD PCP Follow-up - 1 Week New Medications: Commode 3-in-1 (Commode 3-in-1) 1 Mis Mis EA .XX DIRECTED PRN for PAIN SCALE 1 TO 10, #1 0 Refills Rivaroxaban (Xarelto) 10 Mg Tab 10 MG PO DAILY for Blood Clot Prevention for 14 Days, #14 TAB 0 Refills Sennosides-Docusate Sodium (Sheyla-Colace) 8.6-50 Mg Tab 1 TAB PO BID for Constipation, #20 TAB 0 Refills Walker Rolling/GetGo (Walker Rolling/GetGo) 1 Mis Mis EA .ROUTE DIRECTED, #1 Hydrocodone-Acetaminophen (Hydrocodone-Acetaminophen) 5-325 mg Tab 1 TAB PO Q4H PRN for PAIN SCALE 4 TO 10 for 14 Days, #60 TAB Continued Medications: Ranitidine (Zantac) 150 Mg Tab 150 MG PO DAILY for Reduce Stomach Acid, #30 TAB 0 Refills Giovani Mora MD Jun 23, 2017 10:52
[2017-06-23 11:49] VITALS: BP 123/78; PULSE 96; RESP 19; TEMP 95.9; O2SAT 93
--- NOTE | 2017-06-26 08:10 | PD.OP ---
cc: Odessa Jalloh MD Operative Report Closed right basicervical femoral neck fracture Postoperative Diagnosis: same Procedure: 1. Intramedullary nailing right basicervical femoral neck fracture Anesthesia: general Surgeon: Odessa Jalloh Wooden Barrel Mechanic(s): none Operation and Findings: Indications for procedure: Patient is a 67-year-old female who presented to the emergency department after a trip and fall and landing on her right side. Patient endorses right hip pain and was found on her right basicervical femoral neck fracture. Treatment options were discussed with the patient and consent was obtained for intramedullary nailing of her right basicervical femoral neck fracture. I discussed with the patient risks benefits and alternatives. At this time patient wanted to proceed with the above-mentioned procedure. Prior to procedure, the patient needed to be cleared from a medical standpoint. Description of procedure: Patient was brought back to the operating room and placed supine on operating room table. General anesthesia then ensued. Patient was prepped and draped in standard sterile fashion on a fracture table with all bony prominences well-padded. A timeout was performed to identify the correct patient site site and procedure to be performed. Preoperative antibiotics were given prior to incision. Fluoroscopy was used to ensure the fracture was reduced. A small incision just proximal and posterior to the greater trochanter was made through the skin and subcutaneous tissue and fascia to allow for placement of a guidewire. Guidewire was advanced under AP and lateral x-ray. Once the guidewire was in appropriate position, an opening reamer was then used to gain access into the femoral canal. A Synthes TFNA 130 mm in length, 10 mm diameter nail was then placed into the femur. This was advanced to allow appropriate positioning of the proximal locking blade into the femoral head. Once satisfied with its position, a small incision was made on the lateral aspect of the proximal femur to allow placement of the proximal locking blade. A guidewire was placed through the jig into the femoral neck and head. AP and lateral x-rays were used to verify positioning in a center center position. Given this was a basicervical fracture and there was some concern for possible rotation with advancement of the screw, it was decided to use a blade with an anti-rotational guidewire which was placed prior to advancement of the blade. The guidewire was then measured and the near cortex was drilled. The proximal locking blade was then advanced with the use of fluoroscopy to verify positioning. At this point, the antirotation guidewire and the guidewire for the blade were removed. A sleeve was placed to the distal aspect of the jig to allow for the distal locking screw to be placed. The path for the screw was drilled measured and then the screw was placed. At this point the fracture was found to be in acceptable alignment on both AP and lateral imaging and hardware well positioned. All wounds were copiously irrigated with normal saline. Interrupted Vicryl sutures were used for the fascia and subcutaneous tissue and patric were used for skin closure. Sterile dressings were then placed. Patient was then awoken from general anesthesia without complication. Disposition: Patient was instructed she could be weightbearing as tolerated to right lower extremity. Odessa Jalloh MD Jun 26, 2017 08:10
== END 2017-06-23 16:02 | disposition home health service (06) | DRG 480 ==
LOC: NEDAMB 22:57 → NEDA 06-19 01:04 → N06B 06-19 02:24
PROVIDERS: ADMIT Hospitalist; ATTEND Hospitalist
PROC: 30233N1 Transfusion of Nonautologous Red Blood Cells into Peripheral Vein, Percutaneous Approach (ICD-10-PCS; 2017-06-19)
PROC: 0QH606Z Insertion of Intramedullary Internal Fixation Device into Right Upper Femur, Open Approach (ICD-10-PCS; principal; 2017-06-21 15:37)
DX: S72.001A Fracture of unspecified part of neck of right femur, initial encounter for closed fracture (principal); J96.00 Acute respiratory failure, unspecified whether with hypoxia or hypercapnia; I10 Essential (primary) hypertension; B19.20 Unspecified viral hepatitis C without hepatic coma; K44.9 Diaphragmatic hernia without obstruction or gangrene; W18.2XXA Fall in (into) shower or empty bathtub, initial encounter; Y92.002 Bathroom of unspecified non-institutional (private) residence as the place of occurrence of the external cause; Z72.0 Tobacco use; D72.829 Elevated white blood cell count, unspecified; D63.8 Anemia in other chronic diseases classified elsewhere; Z23 Encounter for immunization
CPT/HCPCS: 36430; 36600; 71010; 71275; 73502; 73552; 76000; 80053; 81001; 82805; 85014; 85018; 85025; 85610; 85730; 86078; 86850; 86880; 86900; 86901; 86920; 87086; 90686; 93005; 94002; 94150; 94640; 94762; 96374; 96375; J0131; J0690; J1100; J1170; J1200; J1580; J1650; J1885; J2060; J2270; J2370; J2405; J2543; J2710; J2920; J2930; J3010; J7030; J7613; L1830; P9016; Q2038; Q9967

== ENCOUNTER 2017-06-29 15:44 | Emergency (ER) | payer MEDICARE ==
[~2017-06-29] VITALS: Ht 165.1 cm; Wt 69.4 kg
[~2017-06-29 15:44] MED LIST: COMMODE 3-IN-11 MIS; GETGO ROLLING W1 MI1; HYDR-3516 PO; PERI8.6T PO; XARE10TA PO; ZANT150T2 PO
[2017-06-29 16:01] VITALS: BP 114/83; PULSE 112; RESP 17; TEMP 100.3; O2SAT 97
[2017-06-29] MEDS ORDERED: SODIUM CHLOR 0.9% 1000 ML INJ 1,000 ML IV ONE (16:23)
[2017-06-29] MEDS ORDERED: ACETAMINOPHEN 325 MG TAB PO ONE (16:30)
[2017-06-29] MEDS ORDERED: VANCOMYCIN INJ 1,000 MG in SODIUM CHLOR 0.9% 250 ML INJ 250 ML IV ONE (16:30)
--- NOTE | 2017-06-29 16:33 | PD ---
HPI Chief Complaint: Skin Problem Time Seen by Provider: 16:10 Travel History International Travel<30 days: No Contact w/Intl Traveler<30days: No Traveled to known affect area: No History of Present Illness HPI 67-year-old female with history of thalassemia who on 06/19/17 had a right hip fracture status post ORIF, here for evaluation of right hand infection. The patient noticed a painful lesion on the radial aspect at her proximal right finger yesterday. This lesion has since increased in size and pain in is draining a small amount of purulence. She has also noted for other vesicular lesions on this finger as well as hand. Pain is moderate, constant, worse with palpation and movement. She has also noted a fever. Of note she is on Xarelto after her hip surgery. PFSH Past Medical History Cardiovascular Problems: Yes Diminished Hearing: No GERD: Yes Genitourinary: No Hepatitis: Yes (C) Hiatal Hernia: Yes Musculoskeletal: No Neurologic: Yes Reproductive: No Respiratory: No : 2 Para: 2 Past Surgical History Oral Surgery: Yes (TONSILS REMOVED.) Tonsillectomy: Yes Social History Alcohol Use: No Tobacco Use: Yes Substance Use: No Allergies-Medications (Allergen,Severity, Reaction): Coded Allergies: diphenhydramine (Verified Allergy, Unknown, 06/29/17) hydroxyzine (Verified Allergy, Unknown, 06/29/17) Reported Meds & Prescriptions Reported Meds & Active Scripts Active Sheyla-Colace (Sennosides-Docusate Sodium) 8.6-50 Mg Tab 1 Tab PO BID Walker Rolling/GetGo (Device) 1 Mis Mis Ea .ROUTE DIRECTED Commode 3-in-1 (Device) 1 Mis Mis Ea .XX DIRECTED PRN Xarelto (Rivaroxaban) 10 Mg Tab 10 Mg PO DAILY 14 Days Hydrocodone-Acetaminophen 5-325 mg Tab 1 Tab PO Q4H PRN 14 Days Reported Zantac (Ranitidine HCl) 150 Mg Tab 150 Mg PO DAILY Review of Systems Except as stated in HPI: all other systems reviewed are Neg Physical Exam Narrative GENERAL: Well-developed, well-nourished, pleasant, comfortable, no apparent distress. SKIN: Focused skin assessment warm/dry. Right lateral thigh with 4 surgical incisions with patric in place, clean, dry, intact, no erythema, no warmth, no induration. Proximal right index finger on the radial aspect there is an area of approximately 1.5 x 1.5 cm of fluctuance with a small amount of purulent drainage with surrounding ecchymosis. There is no crepitus. Therefore vesicular lesions around this area on her right hand as well. Normal range of flexion and extension in her right index finger. No Kanavel signs. HEAD: Atraumatic. Normocephalic. EYES: Pupils equal and round. No scleral icterus. No injection or drainage. ENT: Mucous membranes pink and moist. NECK: Trachea midline. No JVD. CARDIOVASCULAR: Regular rate and rhythm. No murmur appreciated. Normal capillary refill in right index finger. RESPIRATORY: No accessory muscle use. Clear to auscultation. Breath sounds equal bilaterally. MUSCULOSKELETAL: Skin exam as above. No obvious deformities. No clubbing. No cyanosis. No edema. NEUROLOGICAL: Awake and alert. No obvious cranial nerve deficits. Motor grossly within normal limits. Normal speech. PSYCHIATRIC: Appropriate mood and affect; insight and judgment normal. Data Data Last Documented VS Vital Signs Date Time Temp Pulse Resp B/P (MAP) Pulse Ox O2 Delivery O2 Flow Rate FiO2 06/29/17 16:01 100.3 112 17 114/83 (93) 97 Orders Orders Complete Blood Count With Diff (06/29/17 16:) Comprehensive Metabolic Panel (06/29/17 16:23) Prothrombin Time / Inr (Pt) (06/29/17 16:23) Act Partial Throm Time (Ptt) (06/29/17 16:23) Lactic Acid Sepsis Protocol (06/29/17 16:23) Blood Culture (06/29/17 16:23) Ecg Monitoring (06/29/17 16:23) Iv Access Insert/Monitor (06/29/17 16:23) Acetaminophen (Tylenol) (06/29/17 16:30) Sodium Chlor 0.9% 1000 Ml Inj (Ns 1000 M (06/29/17 16:23) Wound Culture And Gram Stain (06/29/17 16:23) Vancomycin Inj (Vancomycin Inj) (06/29/17 16:30) Labs Laboratory Tests Test 06/29/17 16:42 White Blood Count 14.4 TH/MM3 Red Blood Count 4.09 MIL/MM3 Hemoglobin 8.1 GM/DL Hematocrit 27.3 % Mean Corpuscular Volume 66.7 FL Mean Corpuscular Hemoglobin 19.8 PG Mean Corpuscular Hemoglobin Concent 29.7 % Red Cell Distribution Width 23.2 % Platelet Count 492 TH/MM3 Mean Platelet Volume 7.5 FL Neutrophils (%) (Auto) 78.4 % Lymphocytes (%) (Auto) 11.9 % Monocytes (%) (Auto) 7.9 % Eosinophils (%) (Auto) 1.3 % Basophils (%) (Auto) 0.5 % Neutrophils # (Auto) 11.3 TH/MM3 Lymphocytes # (Auto) 1.7 TH/MM3 Monocytes # (Auto) 1.1 TH/MM3 Eosinophils # (Auto) 0.2 TH/MM3 Basophils # (Auto) 0.1 TH/MM3 CBC Comment AUTO DIFF Prothrombin Time 11.2 SEC Prothromb Time International Ratio 1.0 RATIO Activated Partial Thromboplast Time 29.3 SEC Blood Urea Nitrogen 18 MG/DL Creatinine 0.86 MG/DL Random Glucose 97 MG/DL Total Protein 7.2 GM/DL Albumin 2.8 GM/DL Calcium Level 8.5 MG/DL Alkaline Phosphatase 119 U/L Aspartate Amino Transf (AST/SGOT) 20 U/L Alanine Aminotransferase (ALT/SGPT) 29 U/L Total Bilirubin 0.3 MG/DL Sodium Level 139 MEQ/L Potassium Level 3.9 MEQ/L Chloride Level 103 MEQ/L Carbon Dioxide Level 28.3 MEQ/L Anion Gap 8 MEQ/L Estimat Glomerular Filtration Rate 66 ML/MIN Lactic Acid Level 1.0 mmol/L MDM Medical Decision Making Medical Screen Exam Complete: Yes Emergency Medical Condition: Yes Differential Diagnosis Herpetic mary jane, cellulitis, sepsis, abscess Narrative Course Initial vital signs show heart rate 112, blood pressure 114/83, pulse ox 97% on room air, oral temp of 100.3F. Heart rate improved to 87 after Tylenol and a liter of normal saline IV. CBC: WBC 14.4, hemoglobin 8.1, hematocrit 27.3, platelets 492. Patient has history of thalassemia/anemia. CMP is unremarkable. Lactic acid is 1. The patient has vesicular lesions on her right hand that appear to be herpetic mary jane. She also has a lesion on her right index finger on the proximal/ radial aspect that is draining a small amount of purulence. She was given a dose of IV vancomycin as well as a dose of oral acyclovir. There are no Kanavel signs on exam. She will be discharged home with a prescription for Bactrim and Keflex. I will give her the name of the hand surgeon front desk monitor with whom to follow-up with. She was also informed on when to return to the emergency department. She verbalizes understanding and agreement with plan. Diagnosis Primary Impression: Herpetic mary jane Additional Impression: Cellulitis of right index finger Referrals: Zaid Mattson MD 2 days Primary Care Physician 3 days Additional Instructions: Take antibiotics as prescribed. Follow-up with hand surgeon Dr. Mattson or a hand surgeon of your choice this week. Return to the emergency department for worsening symptoms or any other concerns. Scripts Cephalexin (Keflex) 500 Mg Cap 500 MG PO Q8H for Infection, #30 CAP 0 Refills Prov: Dexter Humphrey MD 06/29/17 Sulfamethoxazole-Trimethoprim (Bactrim DS) 800-160 Mg Tab 1 TAB PO BID for Infection for 10 Days, #20 TAB 0 Refills Prov: Dexter Humphrey MD 06/29/17 Acyclovir (Acyclovir) 800 Mg Tab 800 MG PO 5 TIMES A DAY for Mgmt Viral Infection for 7 Days, TAB 0 Refills Prov: Dexter Humphrey MD 06/29/17 Disposition: 01 DISCHARGE HOME Condition: Stable Dexter Humphrey MD Jun 29, 2017 16:33
[2017-06-29 16:56] LABS: AUTOMATED NEUTROPHIL # 11.3 TH/MM3 (1.8-7.7); BASOPHIL # 0.1 TH/MM3 (0-0.2); BASOPHIL % 0.5 % (0.0-2.0); EOSINOPHIL # 0.2 TH/MM3 (0-0.4); EOSINOPHIL % 1.3 % (0.0-4.0); HEMATOCRIT 27.3 % (35.0-46.0); LYMPH % 11.9 % (9.0-44.0); LYMPHOCYTE # 1.7 TH/MM3 (1.0-4.8); MEAN CELL VOLUME 66.7 FL (80.0-100.0); MEAN CORPUSCULAR HEMOGLOBIN 19.8 PG (27.0-34.0); MONO % 7.9 % (0.0-8.0); NEUT % 78.4 % (16.0-70.0); PLATELET COUNT 492 TH/MM3 (150-450); RED BLOOD COUNT 4.09 MIL/MM3 (4.00-5.30); RED CELL DISTRIBUTION WIDTH 23.2 % (11.6-17.2); WHITE BLOOD COUNT 14.4 TH/MM3 (4.0-11.0)
[2017-06-29 17:00] LABS: HEMO FLAGS AUTO DIFF; MEAN CORPUSCULAR HGB CONC 29.7 % (32.0-36.0)
[2017-06-29 17:05] LABS: CHLORIDE 103 MEQ/L (98-107); POTASSIUM 3.9 MEQ/L (3.5-5.1); SODIUM (NA) 139 MEQ/L (136-145)
[2017-06-29 17:09] LABS: ANION GAP 8 MEQ/L (5-15); APTT (PATIENT) 29.3 SEC (24.3-30.1); BICARBONATE 28.3 MEQ/L (21.0-32.0); BLOOD UREA NITROGEN 18 MG/DL (7-18); PROTHROMBIN TIME - PATIENT 11.2 SEC (9.8-11.6)
[2017-06-29 17:12] LABS: ALT (GPT) 29 U/L (10-53); AST (GOT) 20 U/L (15-37); GLOMERULAR FILTRATION RATE 66 ML/MIN (>89)
[2017-06-29 17:14] LABS: TOTAL BILIRUBIN ADULT 0.3 MG/DL (0.2-1.0)
[2017-06-29 17:15] LABS: ALKALINE PHOSPHATASE 119 U/L (45-117)
[2017-06-29] MEDS ORDERED: BACT800T5 PO (17:51)
[2017-06-29] MEDS ORDERED: CEPH-460 PO (17:51)
[2017-06-29] MEDS ORDERED: ACYC800T PO (17:51)
[2017-06-29 17:56] LABS: PLATELET ESTIMATE SMEAR NORMAL (NORMAL); PLATELET MORPHOLOGY NORMAL (NORMAL); SCAN/DIFF AUTO DIFF CONFIRMED
[2017-06-29] MEDS ORDERED: ACYCLOVIR 800 MG TAB PO ONE (18:00)
[2017-06-29 18:15] VITALS: BP 136/63; PULSE 93; RESP 16; O2SAT 96
== END 2017-06-29 18:52 | disposition home or self-care (01) ==
LOC: PHED 15:44
DX: B00.89 Other herpesviral infection (principal); D56.9 Thalassemia, unspecified; Z79.01 Long term (current) use of anticoagulants
CPT/HCPCS: 80053; 83605; 85025; 85610; 85730; 86403; 87040; 87070; 96365; 99284; J3370; J7030; J7050; 87205

== ENCOUNTER 2017-07-01 09:48 | Emergency (ER) | payer MEDICARE ==
[~2017-07-01] VITALS: Ht 165.1 cm; Wt 69.0 kg
[~2017-07-01 09:48] MED LIST changes: +ACYC800T PO; +BACT800T5 PO; +CEPH-460 PO
[2017-07-01 09:54] VITALS: BP 105/51; PULSE 104; RESP 16; TEMP 98.5; O2SAT 98
--- NOTE | 2017-07-01 10:36 | PD ---
HPI Chief Complaint: Skin Problem Time Seen by Provider: 10:11 Travel History International Travel<30 days: No Contact w/Intl Traveler<30days: No Traveled to known affect area: No History of Present Illness HPI 67-year-old female presents with spreading lesions on her right hand since she was here 2 days ago. She has been taking her medications of acyclovir, Bactrim , Keflex since she was discharged. She states she is concerned because he wants to know what her cultures were to help know what is going on. She states she has not had increase in redness or high-grade fevers. She does have pain over the area or if you touch it. She denies any other concurrent complaints. PFSH Past Medical History Cardiovascular Problems: Yes Diminished Hearing: No GERD: Yes Genitourinary: No Hepatitis: Yes (C) Hiatal Hernia: Yes Musculoskeletal: No Neurologic: Yes Reproductive: No Respiratory: No : 2 Para: 2 Past Surgical History Eye Surgery: Yes (Bilat cataracts) Oral Surgery: Yes (TONSILS REMOVED.) Tonsillectomy: Yes Other Surgery: Yes Social History Alcohol Use: No Tobacco Use: Yes Substance Use: No Allergies-Medications (Allergen,Severity, Reaction): Coded Allergies: diphenhydramine (Verified Allergy, Unknown, 07/01/17) hydroxyzine (Verified Allergy, Unknown, 07/01/17) Reported Meds & Prescriptions Reported Meds & Active Scripts Active Keflex (Cephalexin) 500 Mg Cap 500 Mg PO Q8H Bactrim DS (Sulfamethoxazole-Trimethoprim) 800-160 Mg Tab 1 Tab PO BID 10 Days Acyclovir 800 Mg Tab 800 Mg PO 5 TIMES A DAY 7 Days Sheyla-Colace (Sennosides-Docusate Sodium) 8.6-50 Mg Tab 1 Tab PO BID Walker Rolling/GetGo (Device) 1 Mis Mis Ea .ROUTE DIRECTED Commode 3-in-1 (Device) 1 Mis Mis Ea .XX DIRECTED PRN Xarelto (Rivaroxaban) 10 Mg Tab 10 Mg PO DAILY 14 Days Hydrocodone-Acetaminophen 5-325 mg Tab 1 Tab PO Q4H PRN 14 Days Reported Zantac (Ranitidine HCl) 150 Mg Tab 150 Mg PO DAILY Review of Systems Except as stated in HPI: all other systems reviewed are Neg Physical Exam Narrative GENERAL: Well-nourished, well-developed patient. SKIN: To right hand at bases of index finger she has what appears to be hemorrhagic herpetic mary jane-like lesions noted without concurrent secondary cellulitic component or active purulent drainage. There is no extension near her wrist or beyond HEAD: Normocephalic and atraumatic. EYES: No injection or drainage. ENT: No nasal drainage noted. NECK: Supple, trachea midline. CARDIOVASCULAR: Regular rate and rhythm RESPIRATORY: No increased effort. No accessory muscle use. EXTREMITIES: No edema. Pain over right index finger where lesions are, no crepitus or induration noted to lesions, neurovascularly intact NEUROLOGICAL: Awake and alert. Motor and sensory grossly within normal limits. Normal speech. Data Data Last Documented VS Vital Signs Date Time Temp Pulse Resp B/P (MAP) Pulse Ox O2 Delivery O2 Flow Rate FiO2 07/01/17 09:54 98.5 104 16 105/51 (69) 98 Orders Orders Ed Discharge Order (07/01/17 10:43) [facility] Medical Decision Making Medical Screen Exam Complete: Yes Emergency Medical Condition: Yes Medical Record Reviewed: Yes (past history confirmed) Differential Diagnosis Herpetic mary jane, allergic, cellulitis Narrative Course Patient has no longer fever or purulent drainage on antibiotics. Patient has developed additional lesions that are likely herpetic mary jane and with her being on Xarelto there is likely a hemorrhagic component. Cultures reviewed from the without signs of bacterial infection. Patient agrees to no further treatment here and continuing her current treatment with close outpatient follow-up. Given return instructions Diagnosis Primary Impression: Herpetic mary jane Patient Instructions: General Instructions Additional Instructions: return as needed, continue medications, follow with hand surgeon monday Med/Other Pt SpecificInfo: No Change to Meds Disposition: 01 DISCHARGE HOME Condition: Stable Socorro Nava MD Jul 01, 2017 10:36
== END 2017-07-01 10:49 | disposition home or self-care (01) ==
LOC: PHED 09:48
DX: B00.89 Other herpesviral infection (principal); M79.641 Pain in right hand; Z72.0 Tobacco use; Z86.79 Personal history of other diseases of the circulatory system; Z87.19 Personal history of other diseases of the digestive system; Z86.19 Personal history of other infectious and parasitic diseases; Z87.39 Personal history of other diseases of the musculoskeletal system and connective tissue; Z86.69 Personal history of other diseases of the nervous system and sense organs
CPT/HCPCS: 99282

== ENCOUNTER 2018-03-15 11:44 | Observation (INO) ==
[2018-03-15] MEDS ORDERED: Sod Chloride 0.9% Inj 1,000 ML IV.CONT SCH (12:00)
--- NOTE | 2018-03-15 12:07 | ED ---
HPI General Chief Complaint: Stroke Alert Stated Complaint: Medical/Straight back Time Seen by Provider: 03/15/18 11:50 Source: patient Mode of arrival: ambulatory Limitations: no limitations History of Present Illness HPI Narrative: PATIENT WAS AT WORK WHEN SHE HAD DIFFICULTY VERBALIZING HER WORDS OVER A PERIOD OF 15 MINUTES, ARRIVES HERE 30MINUTES TOTAL AFTER ONSET OF SYMPTOMS...WHICH HAS BEEN IMPROVING RAPIDLY THROUGHOUT THE PAST 30 MINUTES Onset (ago): minute(s) (30) Timing confirmed by: family member Location: speech History of same: No Severity: severe Relieving factors: none Exacerbating factors: none Context: sudden onset On Anticoagulants: No Associated symptoms: denies other symptoms Treatments Prior to Arrival: none Related Data Allergies Allergy/AdvReac Type Severity Reaction Status Date / Time diphenhydramine Allergy Unknown Verified 07/01/17 09:53 hydroxyzine Allergy Unknown Verified 07/01/17 09:53 Review of Systems Except as stated in HPI: all other systems reviewed are negative PMFSH History History Provided By: Patient Medical History Medical History Closed hip fracture requiring operative repair (Acute) Hepatitis C (Acute) Hip fracture, right (Acute) Kidney stones (Acute) Surgical History Surgical History History of open reduction and internal fixation (ORIF) procedure (Acute) Hx of tonsillectomy (Acute) Social History Social History Substance History: No History of Abuse Second Hand Smoke Exposure: No Smoking Status: Heavy tobacco smoker Tobacco Type: Cigarettes How Often Do You Have a Drink Containing Alcohol: Never Recent Travel in [place] within the Last 8 Weeks: No Recent Out of Country Travel within the Last 8 Weeks: No Exam Narrative Exam Narrative: GENERAL: Well-nourished, well-developed patient in no apparent distress. SKIN: Warm and dry. HEAD: Atraumatic. Normocephalic. EYES: Pupils equal and round. No scleral icterus. No injection or drainage. ENT: No nasal bleeding or discharge. Mucous membranes pink and moist. NECK: Trachea midline. No JVD. CARDIOVASCULAR: Regular rate and rhythm. no rubs or gallops RESPIRATORY: No accessory muscle use. Clear to auscultation. Breath sounds equal bilaterally. GASTROINTESTINAL: Abdomen soft, non-tender, nondistended. No rebound or guarding MUSCULOSKELETAL: Extremities without clubbing, cyanosis, or edema. No obvious deformities. NEUROLOGICAL: Awake and alert. No obvious cranial nerve deficits. Motor grossly within normal limits. Five out of 5 muscle strength in the arms and legs. Slurred speech. PSYCHIATRIC: Appropriate mood and affect; insight and judgment normal. Course Initial Documented Vital Signs Temperature 98.7 F 03/15/18 11:49 Pulse Rate 97 H 03/15/18 11:49 Respiratory Rate 18 03/15/18 11:49 Blood Pressure 214/86 H 03/15/18 11:49 Pulse Oximetry 98 03/15/18 11:49 Last Documented Vital Signs Temperature 98.7 F 03/15/18 11:49 Pulse Rate 88 03/15/18 12:55 Respiratory Rate 23 03/15/18 12:55 Blood Pressure 162/77 H 03/15/18 12:55 Pulse Oximetry 98 03/15/18 12:55 Critical Care Time Critical Care Time: Yes Total Critical Care Time: 45 Attestation: Aggregate critical care time was [45] minutes. Time to perform other separately billable procedures was not included in the critical care time. My time did not include minutes spent treating any other patients simultaneously or on activities that did not directly contribute to the patient's treatment. The services I provided to this patient were to treat and/or prevent clinically significant deterioration that could result in: [Permanent neurological deficit,] I provided critical care services requiring my management, as noted below: Chart data review, documentation time, medication orders and management, vital sign assessments/reviewing monitor data, ordering and reviewing lab tests, ordering and interpreting/reviewing x-rays and diagnostic studies, care of the patient and discussion of the patient with the admitting physicians. NIH Stroke Scale NIHSS Time Completed NIHSS Time Completed: 11:44 NIH Stroke Scale Level of Consciousness: 0-Alert Orientation Questions: 0-Answers both correct Responds to Commands: 0-Both tasks correct Gaze Eye Movement: 0-Horizontal movement WNL Visual Chadwick: 0-No visual field defect Facial Movement: 0-Normal Motor Functions Arm LEFT: 0-No drift Motor Functions Arm RIGHT: 0-No drift Motor Functions Leg LEFT: 0-No drift Motor Functions Leg RIGHT: 0-No drift Limb Ataxia: 0-No ataxia Sensory Loss: 0-No sensory loss Best Language: 1-Mild aphasia Articulation: 0-Normal Extinction or Inattention Sensory: 0-Absent Total: 1 Medical Decision Making Differential Diagnosis Differential Diagnosis: Hypoglycemia versus intracranial hemorrhage versus CVA versus electrolyte abnormalities versus dysrhythmia Lab Data Lab results reviewed: Yes I reviewed the patient's lab results. Lab results narrative: PER TEASEL SETTER PACS DOWN, UNABLE TO TRANSFER RESULTS VIA COMPUTER, VERBAL RESULTS: Result diagrams: 03/15/18 11:55 Lab Results 03/15/18 03/15/18 03/15/18 Range/Units 11:55 11:55 11:55 PT 9.9 (9.8-11.6) sec INR 1.0 Ratio APTT 25.0 (24.3-30.1) sec Sodium 140 (136-145) meq/L Potassium 3.8 (3.5-5.1) meq/L Chloride 106 (98-107) meq/L Carbon Dioxide 23.3 (21.0-32.0) meq/L Anion Gap 11 (5-15) meq/L BUN 17 (7-18) mg/dL Creatinine 0.77 (0.50-1.00) mg/dL Estimated GFR 75 L (>89) mL/min Random Glucose 80 (74-106) mg/dL Calcium 9.4 (8.5-10.1) mg/dL Total Bilirubin 0.2 (0.2-1.0) mg/dL AST 11 L (15-37) U/L ALT 19 (10-53) U/L Alkaline Phosphatase 128 H (45-117) U/L Total Creatine Kinase 81 (26-192) U/L Troponin I Less than 0.02 L (0.02-0.05) ng/mL Total Protein 8.0 (6.4-8.2) g/dL Albumin 3.7 (3.4-5.0) g/dL Urine Color (Yellw/Straw) Urine Clarity (Clear) Urine pH (5.0-8.5) Ur Specific Mobile (1.002-1.035) Urine Protein (Neg-Trace) mg/dL Urine Glucose (UA) (Negative) mg/dL Urine Ketones (Negative) mg/dL Urine Occult Blood (Negative) Urine Nitrate (Negative) Urine Bilirubin (Negative) Urine Urobilinogen (Less than 2) mg/dL Ur Leukocyte Esterase (Negative) Ur Squamous Epith Cells (0-5) /hpf Urine Mucus (Occasional) /lpf Micro UA Comment Urine Culture Comments Urine Opiates Screen (Neg) Ur Barbiturates Screen (Neg) Ur Amphetamines Screen (Neg) U Benzodiazepines Scrn (Neg) Urine Cocaine Screen (Neg) U Cannabinoids Screen (Neg) Blood Type O Positive Blood Type Confirm Antibody Screen Negative 03/15/18 03/15/18 03/15/18 Range/Units 12:13 12:13 12:52 PT (9.8-11.6) sec INR Ratio APTT (24.3-30.1) sec Sodium (136-145) meq/L Potassium (3.5-5.1) meq/L Chloride (98-107) meq/L Carbon Dioxide (21.0-32.0) meq/L Anion Gap (5-15) meq/L BUN (7-18) mg/dL Creatinine (0.50-1.00) mg/dL Estimated GFR (>89) mL/min Random Glucose (74-106) mg/dL Calcium (8.5-10.1) mg/dL Total Bilirubin (0.2-1.0) mg/dL AST (15-37) U/L ALT (10-53) U/L Alkaline Phosphatase (45-117) U/L Total Creatine Kinase (26-192) U/L Troponin I (0.02-0.05) ng/mL Total Protein (6.4-8.2) g/dL Albumin (3.4-5.0) g/dL Urine Color Yellow (Yellw/Straw) Urine Clarity Clear (Clear) Urine pH 5.0 (5.0-8.5) Ur Specific Mobile 1.012 (1.002-1.035) Urine Protein Negative (Neg-Trace) mg/dL Urine Glucose (UA) Negative (Negative) mg/dL Urine Ketones Negative (Negative) mg/dL Urine Occult Blood Negative (Negative) Urine Nitrate Negative (Negative) Urine Bilirubin Negative (Negative) Urine Urobilinogen Less than 2 (Less than 2) mg/dL Ur Leukocyte Esterase Negative (Negative) Ur Squamous Epith Cells <1 (0-5) /hpf Urine Mucus Few H (Occasional) /lpf Micro UA Comment Culture not ind Urine Culture Comments Culture not ind Urine Opiates Screen Neg (Neg) Ur Barbiturates Screen Neg (Neg) Ur Amphetamines Screen Neg (Neg) U Benzodiazepines Scrn Neg (Neg) Urine Cocaine Screen Neg (Neg) U Cannabinoids Screen Pos (Neg) Blood Type Blood Type Confirm O Positive Antibody Screen Imaging Data Radiologist's impression: ITS Impressions Chest X-Ray 03/15/18 11:50 CONCLUSION: 1. No acute cardiopulmonary disease. Head CT 03/15/18 11:50 CONCLUSION: 1. No acute findings. Subtle low-attenuation right parietal lobe could be from white matter ischemic changes or remote small infarct. Head CTA 03/15/18 11:50 CONCLUSION: 1. Unremarkable head CTA examination. Specifically, no evidence for large vessel occlusion. Findings were personally discussed with Dr. Holden at 12:35 P.M. Neck CTA 03/15/18 11:50 CONCLUSION: No significant carotid stenosis. 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 Discharge Plan Discharge Disposition Patient Disposition: 30 Still Patient Discharge Condition Condition: Stable Discharge Details Discharge Problem: Transient cerebral ischemia Physicians Team ED Provider: Hang Holden Primary Care Provider: Keyanna Lopez Other Providers: Pérez Desai Status ED Status: With Doctor
[2018-03-15 12:43] LABS: Prothrombin Time 9.9 sec (9.8-11.6)
[2018-03-15 13:03] LABS: Albumin 3.7 g/dL (3.4-5.0); Anion Gap 11 meq/L (5-15); Aspartate Aminotransferase 11 U/L (15-37); Blood Urea Nitrogen 17 mg/dL (7-18); Calcium 9.4 mg/dL (8.5-10.1); Carbon Dioxide 23.3 meq/L (21.0-32.0); Chloride 106 meq/L (98-107); Glomerular Filtration Rate 75 mL/min (>89); Glucose,Random 80 mg/dL (74-106); Potassium 3.8 meq/L (3.5-5.1); Sodium 140 meq/L (136-145)
[2018-03-15 13:09] LABS: Alanine Aminotransferase 19 U/L (10-53); Alkaline Phosphatase 128 U/L (45-117)
[2018-03-15 13:12] LABS: Bilirubin,Urine Negative (Negative); Clarity,Urine Clear (Clear); Color,Urine Yellow (Yellw/Straw); Glucose,Urine (UA) Negative (Negative); Leukocyte Esterase,Urine Negative (Negative); Mucus,Urine Few /lpf (Occasional); Nitrite,Urine Negative (Negative); Specific Gravity,Urine 1.012 (1.002-1.035); Squamous Epithelial Cell,Urine <1 /hpf (0-5)
--- NOTE | 2018-03-15 13:15 | MB ---
cc: Pérez Bourgeois MD DATE: 03/15/2018 HISTORY OF PRESENT ILLNESS: A 67-year-old left-handed woman with a history of GERD, otherwise very healthy. She does not take an aspirin a day and about 11 a.m. this morning, she walked into a building and could not talk properly. She had a slight headache. She has had a little bit of right shoulder pain since she got in the ER. No chest pain or palpitations. No history of seizures or seizure-like episodes. No odd smells, tastes, seizure, mood. Never woken up, wet the bed or bit her tongue. She has never had a stroke before. REVIEW OF SYSTEMS: She denies any history of hypertension, diabetes, hypercholesterolemia, CABG, stent, angioplasty, A. Fib, Coumadin, renal, hepatic or pulmonary disease, thyroid disease, lupus, ulcer, cancer, seizure or stroke. SOCIAL HISTORY: She is a smoker and I have asked her to quit. Not a drinker, lives by herself. FAMILY HISTORY: Negative for cancer, seizure or stroke. MEDICATIONS: None currently listed on the computer, but does not take an aspirin a day. PHYSICAL EXAMINATION: VITAL SIGNS: She is in sinus rhythm, afebrile, 97-87, 19, 214/86-170/69. NECK: There were no carotid bruits. HEART: Regular rhythm. I did not detect a murmur. NEUROLOGIC: Pupils are equal. Visual valle are full. Extraocular movements are intact without nystagmus. Face is symmetric with normal sensation. Tongue was midline. There is no drift. She had normal strength in her upper and lower extremities bilaterally. Fast finger movements are symmetric and normal. DTRs trace throughout. Toes are downgoing bilaterally. There is no ankle clonus. Pinprick is intact throughout. She is not ataxic on [id number]. Speech is fluent. She is no aphasic. She can name and repeat normally. She gives a good history. LABORATORY DATA: Coags are normal. Other labs are still pending from a stroke alert. CT of the brain and CTA of the neck and la posta of Baptiste appear to be normal. Preliminary report, official report on the CTA of the brain was normal. Official report on the CT of the brain was a slight low attenuation right parietal lobe white matter. IMPRESSION: It sounds like a small TIA. PLAN: We will check an MRI of the brain, echo, Holter, troponin, LDL, some additional blood work. For now, we will give her 325 of aspirin a day. I will be following her with you in the hospital. I do not see anything on the CT that would definitely indicate a stroke. Certainly no hemorrhage is noted. She is having some right shoulder pain. I will defer to the med team if I think it could be cardiac in origin. ADDENDUM The patient has had an NIH stroke scale of 0. She has had full recovery. As such, did not get TNP. MD TYLER Maria/SAMMI , 12:56 PM , 01:13 PM
[2018-03-15 13:20] LABS: Amphetamine Screen,Urine Neg (Neg); Barbiturate Screen,Urine Neg (Neg); Cannabinoid Screen,Urine Pos (Neg); Cocaine Screen,Urine Neg (Neg); Opiate Screen,Urine Neg (Neg)
--- NOTE | 2018-03-15 13:24 | XR ---
EXAM DATE: 03/15/2018 1:22 PM EDT AGE/SEX: 67 years / Female INDICATIONS: Stroke symptoms. CLINICAL DATA: This is the patient's initial encounter. Patient reports that signs and symptoms have been present for 1 day and indicates a pain score of 0/10. MEDICAL/SURGICAL HISTORY: . NONE . Hip fracture right five years ago COMPARISON: [facility] [place], CHEST SINGLE AP, 06/21/2017. . FINDINGS: A single AP view of the chest demonstrates the lungs to be symmetrically aerated without evidence of mass, infiltrate or effusion. The cardiomediastinal contours are unremarkable. Osseous structures a re intact. CONCLUSION: 1. No acute cardiopulmonary disease. Electronically signed by: Vinayak Frye MD 03/15/2018 1:23 PM EDT
[2018-03-15 13:28] LABS: Creatine Kinase 81 U/L (26-192)
[2018-03-15] MEDS ORDERED: Dextrose 50% in Water 50 ML Vial IV.PUSH PRN (13:47)
[2018-03-15 13:58] LABS: Baso % (Auto) 0.2 % (0.0-2.0); Eos # (Auto) 0.2 th/mm3 (0.0-0.4); Eos % (Auto) 1.5 % (0.0-4.0); Hematocrit 30.2 % (35.0-46.0); Hemoglobin 8.6 gm/dL (11.6-15.3); Lymph # (Auto) 3.2 th/mm3 (1.0-4.8); Mean Corpuscular Hemoglobin 18.3 pg (27.0-34.0); Mean Corpuscular Volume 64.4 fL (80.0-100.0); Mean Platelet Volume 7.6 fL (7.0-11.0); Mono # (Auto) 0.9 th/mm3 (0.0-0.9); Mono % (Auto) 8.7 % (0.0-8.0); Neut # (Auto) 6.1 th/mm3 (1.8-7.7); Neut % (Auto) 58.6 % (16.0-70.0); Platelet Count 410 th/mm3 (150-450); Red Blood Count 4.69 mil/mm3 (4.00-5.30); Red Cell Distribution Width 20.3 % (11.6-17.2); White Blood Count 10.4 th/mm3 (4.0-11.0)
[2018-03-15 14:01] LABS: Mean Corpuscular HGB Conc 28.4 % (32.0-36.0)
--- NOTE | 2018-03-15 15:36 | MR ---
EXAM DATE: 03/15/2018 3:32 PM EDT AGE/SEX: 67 years / Female INDICATIONS: Stroke alert. Slurred speech. CLINICAL DATA: This is the patient's initial encounter. Patient reports that signs and symptoms have been present for 1 day and indicates a pain score of 0/10. MEDICAL/SURGICAL HISTORY: Arthritis. Hepatitis C. Gastroesophageal reflux disease. Tonsillect tin. Hip repair. Cataracts. COMPARISON: [facility] – [place], CT HEAD W/O CONTRAST, 03/15/2018. . TECHNIQUE: Multiplanar, multisequence examination of the brain was performed without and with 13 ml O mniscan (gadodiamide) contrast as a single exam dose. FINDINGS: Cerebrum: The ventricles are normal for age. No evidence of midline shift, mass lesion, hemorrhage or acute infarction. No extraaxial fluid collections are seen. The pituitary gland and suprasellar cistern are normal in configuration. White Matter: There is some high signal spots bilaterally characteristic of ischemic demyelinization . This is characteristic for patient's age. Posterior Fossa: The cerebellum and brainstem are intact. The 4th ventricle is midline. The cerebel lopontine angle is unremarkable. The cerebellar tonsils are normal in position. Diffusion Imaging: No focal areas of restricted diffusion are seen. No evidence of acute infarction . Extracranial: The visualized portions of the orbits and paranasal sinuses are unremarkable. Post Contrast: No abnormal areas of parenchymal or dural enhancement. No evidence of blood-brain ba rrier breakdown. CONCLUSION: 1. Unremarkable MRI of the brain for patient's age. Electronically signed by: Mg Jefferson MD 03/15/2018 3:35 PM EDT
[2018-03-15] MEDS: Aspirin 325 MG Tablet PO SCH (15:37)
[2018-03-15] MEDS ORDERED: Gadodiamide PF Inj 287 MG/ML 5 ML Syringe (for RAD MRI) IVCONTRAST ONE (15:45)
--- NOTE | 2018-03-15 16:56 | P.HPIM ---
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, who presented to the hospital with a chief complaint of slurred speech or being unable to express her idea, patient stated she was driving normally doing her job today when she went into the 1 of the long term and when she was trying to talk the words were not coherent related to what she wanted to say as she explained to me, however she was able to text her friend telling her was happening with her and that was correctly placed, after almost an hour symptoms resolved and patient speech came back normal, patient denied any other associated symptoms such as weakness in any arms or legs, chest pain lightheaded shortness of breath, blurred vision, dizziness, or losing balance or syncope. Patient denied doing any illicit drugs however urine toxicology came back positive for marijuana which she said she inhaled from her daughter who was smoking, patient is a smoker but she told me she decided to quit today, denies alcohol abuse. She has a past medical history of GERD arthritis, chronic sinuses. Patient seen by Dr. Bourgeois who ordered an MRI placed on aspirin, and we initiated stroke protocol. Also patient complained of chronic sinusitis for which I will order Flonase and possible short-term nasal anti- congestion Inpatient Certification: I certify that the inpatient services were ordered in accordance with Medicare regulations governing the order. This includes certification that hospital inpatient services are reasonable and necessary and in the case of services not specified as inpatient-only under 42 CFR 419.22(n), that they are appropriately provided as inpatient services in accordance to with the 2-midnight benchmark under 43 CFR 412.3(e) Review of Systems All other systems reviewed negative except as stated in HPI PMFSH - History History Provided By: Patient - Medical History Medical History: Medical History (Last Updated 03/15/18 @ 17:51 by Clarence Patel MD) Chronic sinusitis Closed hip fracture requiring operative repair Hepatitis C Hip fracture, right Kidney stones - Surgical History Surgical History: Surgical History (Last Updated 03/15/18 @ 13:20 by Linh Perea) History of open reduction and internal fixation (ORIF) procedure Hx of tonsillectomy - Tobacco History Second Hand Smoke Exposure: No Tobacco Use In Past 30 Days: Yes Smoking Status: Heavy tobacco smoker Tobacco Type: Cigarettes - Alcohol History How Often Do You Have a Drink Containing Alcohol: Never - Substance Use History Substance History: No History of Abuse - Travel History Recent Travel in the [place] Within the Last 8 Weeks: No Recent Travel Out of the Country Within the Last 8 Weeks: No - Immunization History Tetanus Immunization: Unsure Hx Influenza Vaccine This Season: Yes Medications and Allergies Active Medications: Active Medications Aspirin (Aspirin) 325 mg PO DAILY [facility] Last Admin: 03/15/18 15:37 Dose: Not Given Dextrose (D50w Vial) 50 ml IV.PUSH UNSCH PRN PRN Reason: PER HYPOGLYCEMIA PROTOCOL Enalaprilat (Vasotec Inj) 1.25 mg IV.PUSH Q4H PRN PRN Reason: For SBP > 220 or DBP > 120 Glucagon (Glucagon Inj) 1 mg OTHER UNSCH PRN PRN Reason: for Hypoglycemia Protocol Heparin Sodium (Porcine) (Heparin Inj) 5,000 units SQ Q8H [facility] Sodium Chloride (Ns Inj) 1,000 mls @ 70 mls/hr IV.CONT .[id number] [facility] Stop: 03/16/18 02:17 Last Admin: 03/15/18 13:08 Dose: 70 mls/hr Sodium Chloride (Ns Inj) 1,000 mls @ 84 mls/hr IV.CONT .[id number] [facility] Insulin Aspart (Novolog Insulin Suppl Scale Inj) 0 unit SQ ACHS JOSE ALFREDO; Protocol Sodium Chloride (Ns Flush) 2 ml IV.FLUSH PRN PRN PRN Reason: FLUSH AFTER USING IV ACCESS Sodium Chloride (Ns Flush) 2 ml IV.FLUSH BID [facility] Sodium Chloride (Ns Flush) 2 ml IV.FLUSH PRN PRN PRN Reason: FLUSH AFTER USING IV ACCESS Allergies Allergy/AdvReac Type Severity Reaction Status Date / Time diphenhydramine Allergy Unknown Verified 07/01/17 09:53 hydroxyzine Allergy Unknown Verified 07/01/17 09:53 Home Medications Medication Instructions Recorded Confirmed Type No Known Home Medications 03/15/18 03/15/18 History Exam Vital signs: Vital Signs 03/15/18 11:49 03/15/18 11:50 03/15/18 11:55 Temperature 98.7 F Pulse Rate 97 H 87 Respiratory Rate 18 19 Blood Pressure 214/86 H 170/69 H Pulse Oximetry 98 98 97 03/15/18 12:55 Temperature Pulse Rate 88 Respiratory Rate 23 Blood Pressure 162/77 H Pulse Oximetry 98 Intake & Output 03/14/18 03/15/18 03/15/18 18:59 06:59 18:59 Weight 67.132 kg Narrative: GENERAL: This is a well-nourished, well-developed patient, in no apparent distress. SKIN: No rashes, warm and dry HEAD: Atraumatic. Normocephalic. EYES: Pupils equal round and reactive. Extraocular motions intact. No scleral icterus. ENT: Nose without bleeding, or drainage, Airway patent. NECK: Trachea midline. Supple CARDIOVASCULAR: Regular rate and rhythm without murmurs, gallops, or rubs. RESPIRATORY: Fair air entry bilaterally. No wheezes, rales, or rhonchi. GASTROINTESTINAL: Abdomen soft, non-tender, nondistended. Positive bowel sounds MUSCULOSKELETAL: Extremities without clubbing, cyanosis, or edema. Pedal pulses appreciated NEUROLOGICAL: Awake and alert oriented 3, cranial nerves II through XII intact , motor strength 5 out of 5 in all extremities, sensation intact. Normal speech.no focal neurological deficit Results - Labs CBC & Chem 7: 03/15/18 11:55 03/15/18 11:55 Labs: Short CBC 03/15/18 Range/Units 11:55 WBC 10.4 (4.0-11.0) th/mm3 Hgb 8.6 L (11.6-15.3) gm/dL Hct 30.2 L (35.0-46.0) % Plt Count 410 (150-450) th/mm3 BMP 03/15/18 11:55 Sodium 140 Potassium 3.8 Chloride 106 Carbon Dioxide 23.3 BUN 17 Creatinine 0.77 Calcium 9.4 Cardiac Enzymes 03/15/18 Range/Units 11:55 Total Creatine Kinase 81 (26-192) U/L Troponin I Less than 0.02 L (0.02-0.05) ng/mL Liver Function 03/15/18 Range/Units 11:55 Total Bilirubin 0.2 (0.2-1.0) mg/dL AST 11 L (15-37) U/L ALT 19 (10-53) U/L Alkaline Phosphatase 128 H (45-117) U/L Albumin 3.7 (3.4-5.0) g/dL Urine 03/15/18 Range/Units 12:13 Urine Color Yellow (Yellw/Straw) Urine Clarity Clear (Clear) Urine pH 5.0 (5.0-8.5) Ur Specific Manti 1.012 (1.002-1.035) Urine Protein Negative (Neg-Trace) mg/dL Urine Glucose (UA) Negative (Negative) mg/dL - Imaging Impressions Head MRI 03/15/18 00:00 CONCLUSION: 1. Unremarkable MRI of the brain for patient's age. Chest X-Ray 03/15/18 11:50 CONCLUSION: 1. No acute cardiopulmonary disease. Head CT 03/15/18 11:50 CONCLUSION: 1. No acute findings. Subtle low-attenuation right parietal lobe could be from white matter ischemic changes or remote small infarct. Head CTA 03/15/18 11:50 CONCLUSION: 1. Unremarkable head CTA examination. Specifically, no evidence for large vessel occlusion. Findings were personally discussed with Dr. Holden at 12:35 P.M. Neck CTA 03/15/18 11:50 CONCLUSION: No significant carotid stenosis. 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 Caprini VTE Risk Assessment Caprini VTE Risk Assessment: Moderate/High Risk (score >= 2) Caprini Risk Assessment Model: Point Value = 1 Point Value = 2 Point Value = 3 Point Value = 5 Age 41-60 Minor surgery BMI > 25 kg/m2 Swollen legs Varicose veins or History of unexplained or recurrent spontaneous Oral contraceptives or hormone replacement Sepsis (< 1 month) Serious lung disease, including pneumonia (< 1 month) Abnormal pulmonary function Acute myocardial infarction Congestive heart failure (< 1 month) History of inflammatory bowel disease Medical patient at bed rest Age 61-74 Arthroscopic surgery Major open surgery (> 45 min) Laparoscopic surgery (> 45 min) Malignancy Confined to bed (> 72 hours) Immobilizing plaster cast Central venous access Age >= 75 History of VTE Family history of VTE Factor V Leiden Prothrombin [id number] Lupus anticoagulant Anticardiolipin antibodies Elevated serum homocysteine Heparin-induced thrombocytopenia Other congenital or acquired thrombophilia Stroke (< 1 month) Elective arthroplasty Hip, pelvis, or leg fracture Acute spinal cord injury (< 1 month) Prophylaxis Regimen: Total Risk Factor Score Risk Level Prophylaxis Regimen 0-1 Low Early ambulation 2 Moderate Order ONE of the following: *Sequential Compression Device (SCD) *Heparin 5000 units SQ BID 3-4 Higher Order ONE of the following medications: *Heparin 5000 units SQ TID *Enoxaparin/Lovenox 40 mg SQ daily (WT < 150 kg, CrCl > 30 mL/min) *Enoxaparin/Lovenox 30 mg SQ daily (WT < 150 kg, CrCl > 10-29 mL/min) *Enoxaparin/Lovenox 30 mg SQ BID (WT < 150 kg, CrCl > 30 mL/min) AND/OR *Sequential Compression Device (SCD) 5 or more Highest Order ONE of the following medications: *Heparin 5000 units SQ TID (Preferred with Epidurals) *Enoxaparin/Lovenox 40 mg SQ daily (WT < 150 kg, CrCl > 30 mL/min) *Enoxaparin/Lovenox 30 mg SQ daily (WT < 150 kg, CrCl > 10-29 mL/min) *Enoxaparin/Lovenox 30 mg SQ BID (WT < 150 kg, CrCl > 30 mL/min) AND *Sequential Compression Device (SCD) Assessment and Plan - Plan 67 years old female who is a smoker and her urine toxicology was positive for marijuana came with Sudden onset aphasia expressive rule out CVA versus TIA Stroke protocol initiated with permissive hypertension, flat head of the bed, n.p.o. Neurology consulted patient seen by Dr. Bourgeois started with imaging orders, placed on aspirin I just personally reviewed all the result of the orders which was as follows CT of the head showed possible older small infarct neck CTA showed possible mild changes of FMD in the left ICA Head MRI unremarkable 2D echo showed EF 55-60%, mild TR otherwise unremarkable Head CTA unremarkable Continue monitoring under telemetry with neuro , to resume blood pressure control in a.m. if okay with neurology Past lipid profile in a.m. Anemia microcytic hypochromic: We will check iron panel with ferritin, and no evidence acute or chronic no history of GI bleed, will need to be followed up as an outpatient Tobacco and positive toxic screen for marijuana: Patient counseled extensively DVT prophylaxis with SCD and heparin Discussed Condition With: Patient and ED physician
--- NOTE | 2018-03-15 17:31 | ECHRPT ---
Indication: CVA/TIA CONCLUSIONS The left ventricular systolic function is probably normal with an estimated ejection fraction in the range of 55-60% but it is a poor quality study. Wall thickness is normal. Normal left ventricular size. There is mild tricuspid valve regurgitation. The estimated pulmonary arterial pressure is 33.8 mmHg. BP: / HR: Rhythm: Sinus MEASUREMENTS (Male / Female) Normal Values Technical Quality:Poor 2D ECHO LV Diastolic Diameter PLAX 4.2 cm 4.2 - 5.9 / 3.9 - 5.3 cm LV Systolic Diameter PLAX 3.2 cm IVS Diastolic Thickness 0.7 cm 0.6 - 1.0 / 0.6 - 0.9 cm LVPW Diastolic Thickness 0.7 cm 0.6 - 1.0 / 0.6 - 0.9 cm LV Relative Wall Thickness 0.3 LVOT Diameter 1.8 cm M-MODE Aortic Root Diameter MM 2.7 cm LA Systolic Diameter MM 2.5 cm LA Ao Ratio MM 0.9 AV Cusp Separation MM 1.6 cm DOPPLER AV Peak Velocity 136.0 cm/s AV Peak Gradient 7.4 mmHg LVOT Peak Velocity 62.7 cm/s LVOT Peak Gradient 1.6 mmHg AV Area Cont Eq pk 1.2 cm LV E' Lateral Velocity 9.7 cm/s LV E' Septal Velocity 10.2 cm/s TR Peak Velocity 244.0 cm/s TR Peak Gradient 23.8 mmHg Right Atrial Pressure 10.0 mmHg Pulmonary Artery Systolic Pressu 33.8 mmHg Right Ventricular Systolic Press 33.8 mmHg FINDINGS LEFT VENTRICLE The left ventricular systolic function is normal with an estimated ejection fraction in the range of 55-60%. Wall thickness is normal. Normal left ventricular size. There was limited left ventricular wall motion assessment due to poor endocardial visualization. RIGHT VENTRICLE Normal right ventricular size and systolic function. LEFT ATRIUM The left atrial size is normal. RIGHT ATRIUM The right atrial size is normal. ATRIAL SEPTUM The interatrial septum not well visualized. AORTA The aortic root and proximal ascending aorta are normal in size on limited imaging. MITRAL VALVE Structurally normal mitral valve. No mitral valve stenosis or regurgitation. AORTIC VALVE Trileaflet aortic valve. No aortic valve stenosis or regurgitation. TRICUSPID VALVE There is mild tricuspid valve regurgitation. The estimated pulmonary arterial pressure is 33.8 mmHg. PULMONARY VALVE No pulmonary valve regurgitation or stenosis. VESSELS The inferior vena cava is normal in size. PERICARDIUM No pericardial effusion. Cornelio Davidson MD (Electronically Signed) Final Date:15 March 2018 17:29
--- NOTE | 2018-03-15 19:04 | US ---
EXAM DATE: 03/15/2018 6:58 PM EDT AGE/SEX: 67 years / Female INDICATIONS: Transient ischemic attack. CLINICAL DATA: This is the patient's initial encounter. Patient reports that signs and symptoms have been present for 1 day and indicates a pain score of 4/10. MEDICAL/SURGICAL HISTORY: Hepatitis C. Renal calculi. Right hip fracture. Tonsillectomy. ORIF . COMPARISON: No prior exams available for comparison. VELOCITY PARAMETERS: ICA/CCA Ratio: Right 1.7 , Left 1.2 ICA: Right 151 cm/sec, Left 134 cm/sec CCA: Right 87 cm/sec, Left 113 cm/sec ECA: Right 102 cm/sec, Left 120 cm/sec Vertebral: Right 71 cm/sec antegrade, Left 58 cm/sec antegrade FINDINGS: Right Carotid: Eccentric plaquing visualized..The waveforms are within normal limits. Left Carotid: Mild arteriosclerotic plaque is visualized. The waveforms are within normal limits. Other: None. CONCLUSION: Mild flow velocity acceleration in the right internal carotid artery potentially indicati ve of stenosis estimated subjectively between 50 and 69%. CTA examination of the arch and carotids re commended. Electronically signed by: Mann Villa MD 03/15/2018 7:02 PM EDT
[2018-03-15 20:29] LABS: % Iron Saturation 3.3 % (20-50)
[2018-03-15] MEDS: Insulin NovoLOG Aspart Correctional Sugar Inj SQ SCH (20:35)
[2018-03-15] MEDS: Heparin - SQ 10,000 UNITS/ML Vial SQ SCH (20:38)
[2018-03-15] MEDS: Sod Chloride 0.9% Inj 1,000 ML IV.CONT SCH (20:39)
--- NOTE | 2018-03-15 21:58 | CT ---
EXAM DATE: 03/15/2018 9:51 PM EDT AGE/SEX: 67 years / Female INDICATIONS: Stroke alert, left side facial droop. CLINICAL DATA: This is the patient's initial encounter. Patient reports that signs and symptoms have been present for 1 day and indicates a pain score of 0/10. MEDICAL/SURGICAL HISTORY: Non-responsive. Non-responsive. RADIATION DOSE: 56.35 CTDI (mGy) COMPARISON: [facility] [place], CT HEAD W/O CONTRAST, 03/15/2018. . Report was called by Allen Blackman at 2155 hours] TECHNIQUE: CT of the head without contrast. Using automated exposure control and adjustment of the mA and/or kV according to patient size, radiation dose was kept as low as reasonably achievable to ob tain optimal diagnostic quality images. DICOM format image data is available electronically for revi ew and comparison. FINDINGS: Ventricles are stable symmetric and normal. There is patchy mild diminished attenuation in deep white matter structures, unchanged and benign in appearance. There is no evidence of hemorrhage or mass. N othing to suggest acute infarction. Extracranial structures are stable, benign in intact. CONCLUSION: No acute intracranial findings. Electronically signed by: Mann Villa MD 03/15/2018 9:56 PM EDT
[2018-03-15 22:02] LABS: Baso # (Auto) 0.1 th/mm3 (0.0-0.2); Baso % (Auto) 0.5 % (0.0-2.0); Eos # (Auto) 0.2 th/mm3 (0.0-0.4); Eos % (Auto) 1.8 % (0.0-4.0); Hematocrit 28.9 % (35.0-46.0); Hemoglobin 8.4 gm/dL (11.6-15.3); Lymph # (Auto) 2.5 th/mm3 (1.0-4.8); Lymph % (Auto) 23.9 % (9.0-44.0); Mean Corpuscular Hemoglobin 18.2 pg (27.0-34.0); Mean Corpuscular Volume 62.9 fL (80.0-100.0); Mean Platelet Volume 8.3 fL (7.0-11.0); Mono # (Auto) 0.9 th/mm3 (0.0-0.9); Mono % (Auto) 8.4 % (0.0-8.0); Neut # (Auto) 6.8 th/mm3 (1.8-7.7); Neut % (Auto) 65.4 % (16.0-70.0); Platelet Count 378 th/mm3 (150-450); Red Cell Distribution Width 20.5 % (11.6-17.2); White Blood Count 10.4 th/mm3 (4.0-11.0)
[2018-03-15] MEDS ORDERED: Heparin Drip 25,000 UNIT/250 ML BAG IV.CONT PRN (22:18)
[2018-03-15 22:19] LABS: Activated Partial Thrombo Time 25.3 sec (24.3-30.1); Prothrombin Time 10.2 sec (9.8-11.6)
[2018-03-15 22:29] LABS: Creatine Kinase 87 U/L (26-192)
[2018-03-15] MEDS: Heparin Drip 25,000 UNIT/250 ML BAG IV.CONT PRN (22:44)
[2018-03-15] MEDS ORDERED: Sodium Chlor 0.9% Inj 200 ML IV.SIG SCH (23:00)
[2018-03-16] MEDS: Insulin NovoLOG Aspart Correctional Sugar Inj SQ SCH ×4 (01:16→17:10)
[2018-03-16] MEDS: Sod Chloride 0.9% Inj 1,000 ML IV.SIG SCH ×2 (01:28→04:47)
[2018-03-16] MEDS: Heparin - SQ 10,000 UNITS/ML Vial SQ SCH (01:41)
[2018-03-16] MEDS ORDERED: LORazepam 1 MG Tablet PO SCH (02:13)
[2018-03-16] MEDS: Acetaminophen 325 MG Tablet PO PRN (03:03)
[2018-03-16] MEDS: Sod Chloride 0.9% Inj 1,000 ML IV.CONT SCH ×2 (03:37→14:30)
--- NOTE | 2018-03-16 04:53 | ECG ---
Date Performed: 03/15/2018 Time Performed: 22:53:50 PTAGE: 67 years EKG: Sinus rhythm WITH OCCASIONAL SUPRAVENTRICULAR PREMATURE COMPLEXES POSSIBLE LEFT ATRIAL ENLARGEMENT LEFT VENTRICUL AR HYPERTROPHY AND ST-T CHANGE ABNORMAL ECG Compared to prior electrocardiogram, Premature atrial con tractions are present. PREVIOUS TRACING : 06/19/2017 01.06 DOCTOR: George Torres Interpretating Date/Time 03/16/2018 04:51:27
[2018-03-16 05:14] LABS: Baso % (Auto) 0.4 % (0.0-2.0); Eos # (Auto) 0.2 th/mm3 (0.0-0.4); Eos % (Auto) 2.5 % (0.0-4.0); Hemoglobin 7.9 gm/dL (11.6-15.3); Lymph # (Auto) 2.6 th/mm3 (1.0-4.8); Lymph % (Auto) 27.8 % (9.0-44.0); Mean Corpuscular Hemoglobin 18.1 pg (27.0-34.0); Mean Corpuscular Volume 63.9 fL (80.0-100.0); Mean Platelet Volume 8.4 fL (7.0-11.0); Mono # (Auto) 0.9 th/mm3 (0.0-0.9); Mono % (Auto) 9.3 % (0.0-8.0); Neut # (Auto) 5.7 th/mm3 (1.8-7.7); Platelet Count 368 th/mm3 (150-450); Red Blood Count 4.39 mil/mm3 (4.00-5.30); White Blood Count 9.5 th/mm3 (4.0-11.0)
[2018-03-16 05:18] LABS: Mean Corpuscular HGB Conc 28.3 % (32.0-36.0)
[2018-03-16 05:41] LABS: Chol/HDL Ratio 3.5 Ratio; HDL Cholesterol 46.5 mg/dL (40.0-60.0)
--- NOTE | 2018-03-16 07:29 | P.PNNEU ---
Subjective Subjective Comments: No acute events reported after spell late yest another slurred speech and droop for about 15 min sr Active Medications: Active Medications Generic Name Dose Route Start Last Admin Trade Name Nini PRN Reason Stop Dose Admin Acetaminophen 650 mg 03/16/18 02:47 03/16/18 03:03 Tylenol PO 650 mg Q4H PRN Administration PAIN 1-10 Aspirin 325 mg 03/15/18 14:30 03/15/18 15:37 Aspirin PO Not Given DAILY JOSE ALFREDO Dextrose 50 ml 03/15/18 13:47 D50w Vial IV.PUSH UNSCH PRN PER HYPOGLYCEMIA PROTOCOL Enalaprilat 1.25 mg 03/15/18 13:58 Vasotec Inj IV.PUSH Q4H PRN For SBP > 220 or DBP > 120 Glucagon 1 mg 03/15/18 13:47 Glucagon Inj OTHER UNSCH PRN for Hypoglycemia Protocol Sodium Chloride 1,000 mls @ 120 mls/hr 03/15/18 22:15 03/16/18 06:00 Ns Inj IV.SIG 120 mls/hr .Q8H20M JOSE ALFREDO Infusion Heparin Sodium/Dextrose 25,000 unit in 250 mls @ 0 mls/hr 03/15/18 22:31 02/26 06:21 Heparin/D5w 25,000 U/250 Ml IV.CONT 900 units/hr TITRATE PRN 9 mls/hr Per Protocol Titration Protocol Per Protocol Insulin Aspart 0 unit 03/15/18 17:00 03/16/18 01:16 Novolog Insulin Suppl Scale Inj SQ Not Given ACHS [facility] Protocol Sodium Chloride 2 ml 03/15/18 21:00 03/16/18 01:28 Ns Flush IV.FLUSH 2 ml BID JOSE ALFREDO Administration Sodium Chloride 2 ml 03/15/18 13:47 Ns Flush IV.FLUSH PRN PRN FLUSH AFTER USING IV ACCESS Allergies/Adverse Reactions: Allergies Allergy/AdvReac Type Severity Reaction Status Date / Time diphenhydramine Allergy Unknown Verified 07/01/17 09:53 hydroxyzine Allergy Unknown Verified 07/01/17 09:53 Physical Exam Vital signs: Vital Signs 03/15/18 11:49 03/15/18 11:50 03/15/18 11:55 Temperature 98.7 F Pulse Rate 97 H 87 Respiratory Rate 18 19 Blood Pressure 214/86 H 170/69 H Pulse Oximetry 98 98 97 03/15/18 12:55 03/15/18 21:25 03/15/18 22:00 Temperature 97.5 F L Pulse Rate 88 96 H Respiratory Rate 23 24 Blood Pressure 162/77 H 173/72 H Pulse Oximetry 98 96 99 03/15/18 22:03 03/16/18 00:00 03/16/18 04:00 Temperature 97.5 F L Pulse Rate 105 H 90 87 Respiratory Rate 20 20 Blood Pressure 161/84 H 181/72 H 164/78 H Pulse Oximetry 95 97 97 Intake & Output 03/15/18 03/16/18 03/16/18 18:59 06:59 18:59 Intake Total 2686 / 2686 Balance 2686 / 2686 Weight 67.132 kg 67.8 kg Intake: IV 2636 / 2636 Heparin/D5W 25,000 U/250 mL 25, 60 / 60 000 unit In 250 ml @ Per Protocol IV.CONT TITRATE PRN Rx #:[id number] NS Inj 1,000 ML @ 70 mls/hr IV. 1200 / 1200 CONT .[id number] JOSE ALFREDO Rx#:[id number] NS Inj 1,000 ML @ 120 mls/hr IV 1176 / 1176 .SIG .Q8H20M JOSE ALFREDO Rx#:[id number] NS Inj 200 ML @ 200 mls/hr IV. 200 / 200 SIG NOW JOSE ALFREDO Rx#:[id number] Oral 50 / 50 Other: # Voids 5 # Incontinent Voids 0 Date of Last Bowel Movement 03/15/18 # Bowel Movements 0 Narrative: Speech is fluent face is symmetric she can name and repeat well visual field full normal strength throughout Objective Laboratory Results - last 24 hr 03/15/18 03/15/18 03/15/18 01:02 11:55 11:55 WBC RBC Hgb POC Hgb (Calc) 10.2 L Hct POC Hct 30.0 L MCV MCH MCHC RDW Plt Count MPV Neut % (Auto) Lymph % (Auto) [place] % (Auto) Eos % (Auto) Baso % (Auto) Neut # (Auto) Lymph # (Auto) [place] # (Auto) Eos # (Auto) Baso # (Auto) WBC Differential Differential Comment ESR PT 9.9 INR 1.0 APTT 25.0 Fibrinogen POC Sodium 140 Sodium 140 POC Potassium 3.6 Potassium 3.8 POC Chloride 100 L Chloride 106 Carbon Dioxide 23.3 Anion Gap 11 POC BUN 12 BUN 17 Creatinine 0.77 POC Creatinine 0.7 Estimated GFR 75 L POC Glucose 181 H Random Glucose 80 Calcium 9.4 Iron TIBC % Saturation Ferritin Total Bilirubin 0.2 AST 11 L ALT 19 Alkaline Phosphatase 128 H Total Creatine Kinase 87 81 Troponin I Less than 0.02 L Less than 0.02 L Total Protein 8.0 Albumin 3.7 Triglycerides Cholesterol LDL Cholesterol, Calc HDL Cholesterol Cholesterol/HDL Ratio TSH Urine Color Urine Clarity Urine pH Ur Specific [place] Urine Protein Urine Glucose (UA) Urine Ketones Urine Occult Blood Urine Nitrate Urine Bilirubin Urine Urobilinogen Ur Leukocyte Esterase Ur Squamous Epith Cells Urine Mucus Micro UA Comment Urine Culture Comments Nasal Screen MRSA (PCR) Urine Opiates Screen Ur Barbiturates Screen Ur Amphetamines Screen U Benzodiazepines Scrn Urine Cocaine Screen U Cannabinoids Screen Blood Type Blood Type Confirm Antibody Screen 03/15/18 03/15/18 03/15/18 11:55 11:55 11:55 WBC RBC Hgb POC Hgb (Calc) Hct POC Hct MCV MCH MCHC RDW Plt Count MPV Neut % (Auto) Lymph % (Auto) [place] % (Auto) Eos % (Auto) Baso % (Auto) Neut # (Auto) Lymph # (Auto) [place] # (Auto) Eos # (Auto) Baso # (Auto) WBC Differential Differential Comment ESR 37 H PT INR APTT Fibrinogen POC Sodium Sodium POC Potassium Potassium POC Chloride Chloride Carbon Dioxide Anion Gap POC BUN BUN Creatinine POC Creatinine Estimated GFR POC Glucose Random Glucose Calcium Iron TIBC % Saturation Ferritin Total Bilirubin AST ALT Alkaline Phosphatase Total Creatine Kinase Troponin I Total Protein Albumin Triglycerides Cholesterol LDL Cholesterol, Calc HDL Cholesterol Cholesterol/HDL Ratio TSH 1.440 Urine Color Urine Clarity Urine pH Ur Specific [place] Urine Protein Urine Glucose (UA) Urine Ketones Urine Occult Blood Urine Nitrate Urine Bilirubin Urine Urobilinogen Ur Leukocyte Esterase Ur Squamous Epith Cells Urine Mucus Micro UA Comment Urine Culture Comments Nasal Screen MRSA (PCR) Urine Opiates Screen Ur Barbiturates Screen Ur Amphetamines Screen U Benzodiazepines Scrn Urine Cocaine Screen U Cannabinoids Screen Blood Type O Positive Blood Type Confirm Antibody Screen Negative 03/15/18 03/15/18 03/15/18 11:55 11:55 11:55 WBC 10.4 RBC 4.69 Hgb 8.6 L POC Hgb (Calc) Hct 30.2 L POC Hct MCV 64.4 L MCH 18.3 L MCHC 28.4 L RDW 20.3 H Plt Count 410 MPV 7.6 Neut % (Auto) 58.6 Lymph % (Auto) 31.0 [place] % (Auto) 8.7 H Eos % (Auto) 1.5 Baso % (Auto) 0.2 Neut # (Auto) 6.1 Lymph # (Auto) 3.2 [place] # (Auto) 0.9 Eos # (Auto) 0.2 Baso # (Auto) 0.0 WBC Differential . Differential Comment Auto diff final ESR PT INR APTT Fibrinogen POC Sodium Sodium POC Potassium Potassium POC Chloride Chloride Carbon Dioxide Anion Gap POC BUN BUN Creatinine POC Creatinine Estimated GFR POC Glucose Random Glucose Calcium Iron 17 L TIBC 522 H % Saturation 3.3 L Ferritin 3 L Total Bilirubin AST ALT Alkaline Phosphatase Total Creatine Kinase Troponin I Total Protein Albumin Triglycerides Cholesterol LDL Cholesterol, Calc HDL Cholesterol Cholesterol/HDL Ratio TSH Urine Color Urine Clarity Urine pH Ur Specific [place] Urine Protein Urine Glucose (UA) Urine Ketones Urine Occult Blood Urine Nitrate Urine Bilirubin Urine Urobilinogen Ur Leukocyte Esterase Ur Squamous Epith Cells Urine Mucus Micro UA Comment Urine Culture Comments Nasal Screen MRSA (PCR) Urine Opiates Screen Ur Barbiturates Screen Ur Amphetamines Screen U Benzodiazepines Scrn Urine Cocaine Screen U Cannabinoids Screen Blood Type Blood Type Confirm Antibody Screen 03/15/18 03/15/18 03/15/18 12:13 12:13 12:52 WBC RBC Hgb POC Hgb (Calc) Hct POC Hct MCV MCH MCHC RDW Plt Count MPV Neut % (Auto) Lymph % (Auto) [place] % (Auto) Eos % (Auto) Baso % (Auto) Neut # (Auto) Lymph # (Auto) [place] # (Auto) Eos # (Auto) Baso # (Auto) WBC Differential Differential Comment ESR PT INR APTT Fibrinogen POC Sodium Sodium POC Potassium Potassium POC Chloride Chloride Carbon Dioxide Anion Gap POC BUN BUN Creatinine POC Creatinine Estimated GFR POC Glucose Random Glucose Calcium Iron TIBC % Saturation Ferritin Total Bilirubin AST ALT Alkaline Phosphatase Total Creatine Kinase Troponin I Total Protein Albumin Triglycerides Cholesterol LDL Cholesterol, Calc HDL Cholesterol Cholesterol/HDL Ratio TSH Urine Color Yellow Urine Clarity Clear Urine pH 5.0 Ur Specific [place] 1.012 Urine Protein Negative Urine Glucose (UA) Negative Urine Ketones Negative Urine Occult Blood Negative Urine Nitrate Negative Urine Bilirubin Negative Urine Urobilinogen Less than 2 Ur Leukocyte Esterase Negative Ur Squamous Epith Cells <1 Urine Mucus Few H Micro UA Comment Culture not ind Urine Culture Comments Culture not ind Nasal Screen MRSA (PCR) Urine Opiates Screen Neg Ur Barbiturates Screen Neg Ur Amphetamines Screen Neg U Benzodiazepines Scrn Neg Urine Cocaine Screen Neg U Cannabinoids Screen Pos Blood Type Blood Type Confirm O Positive Antibody Screen 03/15/18 03/15/18 03/15/18 21:31 21:31 22:53 WBC 10.4 RBC 4.60 Hgb 8.4 L POC Hgb (Calc) Hct 28.9 L POC Hct MCV 62.9 L MCH 18.2 L MCHC 29.0 L RDW 20.5 H Plt Count 378 MPV 8.3 Neut % (Auto) 65.4 Lymph % (Auto) 23.9 [place] % (Auto) 8.4 H Eos % (Auto) 1.8 Baso % (Auto) 0.5 Neut # (Auto) 6.8 Lymph # (Auto) 2.5 [place] # (Auto) 0.9 Eos # (Auto) 0.2 Baso # (Auto) 0.1 WBC Differential . Differential Comment Auto diff final ESR PT 10.2 INR 1.0 APTT 25.3 Fibrinogen 328 POC Sodium Sodium POC Potassium Potassium POC Chloride Chloride Carbon Dioxide Anion Gap POC BUN BUN Creatinine POC Creatinine Estimated GFR POC Glucose Random Glucose Calcium Iron TIBC % Saturation Ferritin Total Bilirubin AST ALT Alkaline Phosphatase Total Creatine Kinase Troponin I Total Protein Albumin Triglycerides Cholesterol LDL Cholesterol, Calc HDL Cholesterol Cholesterol/HDL Ratio TSH Urine Color Urine Clarity Urine pH Ur Specific [place] Urine Protein Urine Glucose (UA) Urine Ketones Urine Occult Blood Urine Nitrate Urine Bilirubin Urine Urobilinogen Ur Leukocyte Esterase Ur Squamous Epith Cells Urine Mucus Micro UA Comment Urine Culture Comments Nasal Screen MRSA (PCR) Not detected Urine Opiates Screen Ur Barbiturates Screen Ur Amphetamines Screen U Benzodiazepines Scrn Urine Cocaine Screen U Cannabinoids Screen Blood Type Blood Type Confirm Antibody Screen 03/16/18 03/16/18 03/16/18 04:33 04:33 04:33 WBC 9.5 RBC 4.39 Hgb 7.9 L POC Hgb (Calc) Hct 28.0 L POC Hct MCV 63.9 L MCH 18.1 L MCHC 28.3 L RDW 21.0 H Plt Count 368 MPV 8.4 Neut % (Auto) 60.0 Lymph % (Auto) 27.8 [place] % (Auto) 9.3 H Eos % (Auto) 2.5 Baso % (Auto) 0.4 Neut # (Auto) 5.7 Lymph # (Auto) 2.6 [place] # (Auto) 0.9 Eos # (Auto) 0.2 Baso # (Auto) 0.0 WBC Differential . Differential Comment Auto diff final ESR PT INR APTT 28.7 Fibrinogen POC Sodium Sodium POC Potassium Potassium POC Chloride Chloride Carbon Dioxide Anion Gap POC BUN BUN Creatinine POC Creatinine Estimated GFR POC Glucose Random Glucose Calcium Iron TIBC % Saturation Ferritin Total Bilirubin AST ALT Alkaline Phosphatase Total Creatine Kinase Troponin I Total Protein Albumin Triglycerides 113 Cholesterol 163 LDL Cholesterol, Calc 94 HDL Cholesterol 46.5 Cholesterol/HDL Ratio 3.50 TSH Urine Color Urine Clarity Urine pH Ur Specific [place] Urine Protein Urine Glucose (UA) Urine Ketones Urine Occult Blood Urine Nitrate Urine Bilirubin Urine Urobilinogen Ur Leukocyte Esterase Ur Squamous Epith Cells Urine Mucus Micro UA Comment Urine Culture Comments Nasal Screen MRSA (PCR) Urine Opiates Screen Ur Barbiturates Screen Ur Amphetamines Screen U Benzodiazepines Scrn Urine Cocaine Screen U Cannabinoids Screen Blood Type Blood Type Confirm Antibody Screen Review/Management - Review/Management Plan: Impression The MRI yesterday was normal and the CTAs were essentially negative. 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 Her troponin and LDL were negative. I start her on heparin last night IV when she had another spell of facial droop and slurred speech which was transient. She has not had another. My plan will be to keep her on heparin for another day and if she does not have a spell we could switch her over to Plavix and aspirin. We need to follow-up her echo and Holter and other blood work. Her neurological exam is normal at this time. She could go to the floor but keep her head flat today. And IV fluids on and blood pressure up
[2018-03-16] MEDS: Aspirin 325 MG Tablet PO SCH ×2 (10:37→14:29)
--- NOTE | 2018-03-16 13:24 | P.PNIM ---
Subjective Interval history: Had another episode of slurring of speech last night with right-sided facial droop which lasted for a maximum of 5 minutes and spontaneously resolve. Presently doing fine, speech is back to normal, no focal weakness, numbness or headache. Afebrile. Denies any chest pain or shortness of breath. Physical Exam Vital signs: Vital Signs 03/15/18 21:25 03/15/18 22:00 03/15/18 22:03 Temperature 97.5 F L Pulse Rate 96 H 105 H Respiratory Rate 24 Blood Pressure 173/72 H 161/84 H Pulse Oximetry 96 99 95 03/16/18 00:00 03/16/18 04:00 03/16/18 08:00 Temperature 97.5 F L 99.2 F Pulse Rate 90 87 76 Respiratory Rate 20 20 Blood Pressure 181/72 H 164/78 H 143/66 H Pulse Oximetry 97 97 100 03/16/18 09:00 03/16/18 09:50 03/16/18 12:11 Temperature 98.1 F Pulse Rate 76 99 H Respiratory Rate 18 Blood Pressure 131/98 H Pulse Oximetry 99 96 Intake & Output 03/15/18 03/16/18 03/16/18 18:59 06:59 18:59 Intake Total 2686 / 2686 Balance 2686 / 2686 Weight 67.132 kg 67.8 kg Intake: IV 2636 / 2636 Heparin/D5W 25,000 U/250 mL 25, 60 / 60 000 unit In 250 ml @ Per Protocol IV.CONT TITRATE PRN Rx #:[id number] NS Inj 1,000 ML @ 70 mls/hr IV. 1200 / 1200 CONT .[id number] JOSE ALFREDO Rx#:[id number] NS Inj 1,000 ML @ 120 mls/hr IV 1176 / 1176 .SIG .Q8H20M JOSE ALFREDO Rx#:[id number] NS Inj 200 ML @ 200 mls/hr IV. 200 / 200 SIG NOW JOSE ALFREDO Rx#:[id number] Oral 50 / 50 Other: # Voids 5 # Incontinent Voids 0 Date of Last Bowel Movement 03/15/18 03/15/18 # Bowel Movements 0 Narrative: Not in distress, well-nourished, looks stated age PERRL, pink conjunctiva Normal rate and regular rhythm, no murmurs gallops or rubs appreciated. Clear to auscultation and symmetric bilaterally, normal respiratory effort. Normal bowel sounds, soft, non-tender, nondistended, no guarding. Extremities without clubbing, cyanosis, or edema. No rash of generalized distribution. Skin is warm and dry. AAO x3, no cranial nerve deficits, moves all 4 extremities, no focal neurologic deficits Results - Labs CBC & Chem 7: 03/16/18 04:33 03/15/18 11:55 Laboratory Results - last 24 hr 03/15/18 03/15/18 03/15/18 01:02 11:55 11:55 WBC RBC Hgb POC Hgb (Calc) 10.2 L Hct POC Hct 30.0 L MCV MCH MCHC RDW Plt Count MPV Neut % (Auto) Lymph % (Auto) [place] % (Auto) Eos % (Auto) Baso % (Auto) Neut # (Auto) Lymph # (Auto) [place] # (Auto) Eos # (Auto) Baso # (Auto) WBC Differential Differential Comment ESR PT INR APTT Fibrinogen POC Sodium 140 POC Potassium 3.6 POC Chloride 100 L POC BUN 12 POC Creatinine 0.7 POC Glucose 181 H Iron TIBC % Saturation Ferritin Total Bilirubin 0.2 ALT 19 Alkaline Phosphatase 128 H Total Creatine Kinase 87 81 Troponin I Less than 0.02 L Less than 0.02 L Total Protein 8.0 Triglycerides Cholesterol LDL Cholesterol, Calc HDL Cholesterol Cholesterol/HDL Ratio TSH 1.440 Nasal Screen MRSA (PCR) Urine Opiates Screen Ur Barbiturates Screen Ur Amphetamines Screen U Benzodiazepines Scrn Urine Cocaine Screen U Cannabinoids Screen 03/15/18 03/15/18 03/15/18 11:55 11:55 11:55 WBC 10.4 RBC 4.69 Hgb 8.6 L POC Hgb (Calc) Hct 30.2 L POC Hct MCV 64.4 L MCH 18.3 L MCHC 28.4 L RDW 20.3 H Plt Count 410 MPV 7.6 Neut % (Auto) 58.6 Lymph % (Auto) 31.0 [place] % (Auto) 8.7 H Eos % (Auto) 1.5 Baso % (Auto) 0.2 Neut # (Auto) 6.1 Lymph # (Auto) 3.2 [place] # (Auto) 0.9 Eos # (Auto) 0.2 Baso # (Auto) 0.0 WBC Differential . Differential Comment Auto diff final ESR 37 H PT INR APTT Fibrinogen POC Sodium POC Potassium POC Chloride POC BUN POC Creatinine POC Glucose Iron 17 L TIBC 522 H % Saturation 3.3 L Ferritin Total Bilirubin ALT Alkaline Phosphatase Total Creatine Kinase Troponin I Total Protein Triglycerides Cholesterol LDL Cholesterol, Calc HDL Cholesterol Cholesterol/HDL Ratio TSH Nasal Screen MRSA (PCR) Urine Opiates Screen Ur Barbiturates Screen Ur Amphetamines Screen U Benzodiazepines Scrn Urine Cocaine Screen U Cannabinoids Screen 03/15/18 03/15/18 03/15/18 11:55 12:13 21:31 WBC 10.4 RBC 4.60 Hgb 8.4 L POC Hgb (Calc) Hct 28.9 L POC Hct MCV 62.9 L MCH 18.2 L MCHC 29.0 L RDW 20.5 H Plt Count 378 MPV 8.3 Neut % (Auto) 65.4 Lymph % (Auto) 23.9 [place] % (Auto) 8.4 H Eos % (Auto) 1.8 Baso % (Auto) 0.5 Neut # (Auto) 6.8 Lymph # (Auto) 2.5 [place] # (Auto) 0.9 Eos # (Auto) 0.2 Baso # (Auto) 0.1 WBC Differential . Differential Comment Auto diff final ESR PT INR APTT Fibrinogen POC Sodium POC Potassium POC Chloride POC BUN POC Creatinine POC Glucose Iron TIBC % Saturation Ferritin 3 L Total Bilirubin ALT Alkaline Phosphatase Total Creatine Kinase Troponin I Total Protein Triglycerides Cholesterol LDL Cholesterol, Calc HDL Cholesterol Cholesterol/HDL Ratio TSH Nasal Screen MRSA (PCR) Urine Opiates Screen Neg Ur Barbiturates Screen Neg Ur Amphetamines Screen Neg U Benzodiazepines Scrn Neg Urine Cocaine Screen Neg U Cannabinoids Screen Pos 03/15/18 03/15/18 03/16/18 21:31 22:53 04:33 WBC RBC Hgb POC Hgb (Calc) Hct POC Hct MCV MCH MCHC RDW Plt Count MPV Neut % (Auto) Lymph % (Auto) [place] % (Auto) Eos % (Auto) Baso % (Auto) Neut # (Auto) Lymph # (Auto) [place] # (Auto) Eos # (Auto) Baso # (Auto) WBC Differential Differential Comment ESR PT 10.2 INR 1.0 APTT 25.3 Fibrinogen 328 POC Sodium POC Potassium POC Chloride POC BUN POC Creatinine POC Glucose Iron TIBC % Saturation Ferritin Total Bilirubin ALT Alkaline Phosphatase Total Creatine Kinase Troponin I Total Protein Triglycerides 113 Cholesterol 163 LDL Cholesterol, Calc 94 HDL Cholesterol 46.5 Cholesterol/HDL Ratio 3.50 TSH Nasal Screen MRSA (PCR) Not detected Urine Opiates Screen Ur Barbiturates Screen Ur Amphetamines Screen U Benzodiazepines Scrn Urine Cocaine Screen U Cannabinoids Screen 03/16/18 03/16/18 03/16/18 04:33 04:33 08:18 WBC 9.5 RBC 4.39 Hgb 7.9 L POC Hgb (Calc) Hct 28.0 L POC Hct MCV 63.9 L MCH 18.1 L MCHC 28.3 L RDW 21.0 H Plt Count 368 MPV 8.4 Neut % (Auto) 60.0 Lymph % (Auto) 27.8 [place] % (Auto) 9.3 H Eos % (Auto) 2.5 Baso % (Auto) 0.4 Neut # (Auto) 5.7 Lymph # (Auto) 2.6 [place] # (Auto) 0.9 Eos # (Auto) 0.2 Baso # (Auto) 0.0 WBC Differential . Differential Comment Auto diff final ESR PT INR APTT 28.7 Fibrinogen POC Sodium POC Potassium POC Chloride POC BUN POC Creatinine POC Glucose 110 Iron TIBC % Saturation Ferritin Total Bilirubin ALT Alkaline Phosphatase Total Creatine Kinase Troponin I Total Protein Triglycerides Cholesterol LDL Cholesterol, Calc HDL Cholesterol Cholesterol/HDL Ratio TSH Nasal Screen MRSA (PCR) Urine Opiates Screen Ur Barbiturates Screen Ur Amphetamines Screen U Benzodiazepines Scrn Urine Cocaine Screen U Cannabinoids Screen - Imaging Impressions Carotid Doppler Study 03/15/18 00:00 CONCLUSION: Mild flow velocity acceleration in the right internal carotid artery potentially indicative of stenosis estimated subjectively between 50 and 69%. CTA examination of the arch and carotids recommended. Head MRI 03/15/18 00:00 CONCLUSION: 1. Unremarkable MRI of the brain for patient's age. Chest X-Ray 03/15/18 11:50 CONCLUSION: 1. No acute cardiopulmonary disease. Head CT 03/15/18 21:44 CONCLUSION: No acute intracranial findings. Assessment and Plan - Plan 67 years old female who is a smoker and her urine toxicology was positive for marijuana came with slurring his speech and sudden onset of aphasia. Aphasia, slurring of speech secondary to likely TIA-neurology on board. 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 Neck CT showed mild changes in the left ICA, FMD, MRI is unremarkable, head & Neck CTA is unremarkable. Echocardiogram showed an ejection fraction of 55-60% with mild TR otherwise unremarkable. May transfer to regular floor. Hemoglobin A1c pending. LDL is 94. -Keep head of the bedside, keep blood pressure up, keep IVF. Per Dr. Bourgeois, continue heparin, switch to aspirin and Plavix on discharge. Follow-up Holter monitor. Chronic anemia-patient known to Dr. Perdue, allegedly chronic, possible thalassemia, follow-up as outpatient. Iron studies possible iron deficiency. Hypertension blood pressures systolic in the 130s-180s, start lisinopril on d/c Tobacco and positive toxic screen for marijuana: Patient counseled extensively No history of diabetes, stop BG's. Hemoglobin A1c is 5.7. Speech therapy. DVT prophylaxis with SCD and heparin
[2018-03-16 13:28] LABS: Hemoglobin A1c 5.7 % (4.3-6.0)
[2018-03-16] MEDS: Heparin Drip 25,000 UNIT/250 ML BAG IV.CONT PRN (23:43)
[2018-03-17] MEDS: Insulin NovoLOG Aspart Correctional Sugar Inj SQ SCH ×4 (03:29→21:35)
[2018-03-17] MEDS: Sod Chloride 0.9% Inj 1,000 ML IV.CONT SCH ×3 (03:29→21:08)
[2018-03-17] MEDS: Acetaminophen 325 MG Tablet PO PRN (06:27)
[2018-03-17 06:58] LABS: Hemoglobin 7.8 gm/dL (11.6-15.3); Mean Corpuscular Hemoglobin 18.3 pg (27.0-34.0); Mean Corpuscular Volume 63.2 fL (80.0-100.0); Mean Platelet Volume 7.6 fL (7.0-11.0); Platelet Count 336 th/mm3 (150-450); Red Blood Count 4.27 mil/mm3 (4.00-5.30); Red Cell Distribution Width 20.3 % (11.6-17.2); White Blood Count 8.9 th/mm3 (4.0-11.0)
[2018-03-17] MEDS: Aspirin 325 MG Tablet PO SCH (08:46)
--- NOTE | 2018-03-17 09:21 | P.PNIM ---
Subjective Interval history: A little upset because she was not able to sleep overnight because of multiple staff checking her vital signs. Otherwise, no further episodes of slurred speech or aphasia. No focal weakness or numbness. Denies any headache. Physical Exam Vital signs: Vital Signs 03/16/18 09:50 03/16/18 12:11 03/16/18 15:42 Temperature 98.1 F 98.1 F Pulse Rate 99 H 73 Respiratory Rate 18 17 Blood Pressure 131/98 H 133/68 Pulse Oximetry 99 96 96 03/16/18 18:04 03/16/18 20:00 03/17/18 00:42 Temperature 98 F 98.4 F Pulse Rate 78 93 H Respiratory Rate 16 20 Blood Pressure 138/78 191/85 H Pulse Oximetry 96 97 98 03/17/18 04:00 03/17/18 08:00 Temperature 98.1 F 98.2 F Pulse Rate 96 H 96 H Respiratory Rate 20 16 Blood Pressure 139/68 143/64 H Pulse Oximetry 99 98 Intake & Output 03/16/18 03/17/18 03/17/18 18:59 06:59 18:59 Intake Total 190 / 190 Balance 190 / 190 Weight 68 kg Intake: IV 190 / 190 Heparin/D5W 25,000 U/250 mL 25, 190 / 190 000 unit In 250 ml @ Per Protocol IV.CONT TITRATE PRN Rx #:[id number] Other: # Voids 3 Date of Last Bowel Movement 03/15/18 Narrative: Not in distress PERRL, pink conjunctiva Normal rate and regular rhythm, no murmurs gallops or rubs appreciated. Clear to auscultation and symmetric bilaterally, normal respiratory effort. Normal bowel sounds, soft, non-tender, nondistended, no guarding. Extremities without clubbing, cyanosis, or edema. No rash of generalized distribution. Skin is warm and dry. AAO x3, no cranial nerve deficits, moves all 4 extremities, no focal neurologic deficits, no aphasia. Results - Labs CBC & Chem 7: 03/17/18 06:21 03/15/18 11:55 Laboratory Results - last 24 hr 03/16/18 03/16/18 03/16/18 04:33 13:14 14:15 WBC RBC Hgb Hct MCV MCH MCHC RDW Plt Count MPV APTT 28.0 POC Glucose 269 H Hemoglobin A1c 5.7 03/16/18 03/16/18 03/16/18 14:40 17:10 22:43 WBC RBC Hgb Hct MCV MCH MCHC RDW Plt Count MPV APTT 29.8 POC Glucose 123 H 112 H Hemoglobin A1c 03/16/18 03/17/18 03/17/18 23:46 06:21 06:21 WBC 8.9 RBC 4.27 Hgb 7.8 L Hct 27.0 L MCV 63.2 L MCH 18.3 L MCHC 29.0 L RDW 20.3 H Plt Count 336 MPV 7.6 APTT 30.6 H POC Glucose 97 Hemoglobin A1c 03/17/18 08:10 WBC RBC Hgb Hct MCV MCH MCHC RDW Plt Count MPV APTT POC Glucose 140 H Hemoglobin A1c Assessment and Plan - Plan 67 years old female who is a smoker and her urine toxicology was positive for marijuana came with slurring his speech and sudden onset of aphasia. Aphasia, slurring of speech secondary to likely TIA-neurology on board. 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 Neck CT showed mild changes in the left ICA, FMD, MRI is unremarkable, head & Neck CTA is unremarkable. Echocardiogram showed an ejection fraction of 55-60% with mild TR otherwise unremarkable. May transfer to regular floor. Hemoglobin A1c is 5.7. LDL is 94. Still on heparin per neurology, still aspirin and Plavix and discharge and follow-up Holter monitor as outpatient. Start on lisinopril and discharge. Chronic anemia-patient known to Dr. Perdue, allegedly chronic, possible thalassemia, follow-up as outpatient. Iron studies possible iron deficiency. Hypertension blood pressures systolic in the 130s-180s, start lisinopril on d/c Tobacco and positive toxic screen for marijuana: Patient counseled extensively No history of diabetes, stop BG's. Hemoglobin A1c is 5.7. Speech therapy. DVT prophylaxis with SCD and heparin Discharge to home when ready
--- NOTE | 2018-03-17 09:24 | P.DS ---
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, who presented to the hospital with a chief complaint of slurred speech or being unable to express her idea, patient stated she was driving normally doing her job today when she went into the [facility] [employer] [facility] [employer] and when she was trying to talk the words were not coherent related to what she wanted to say as she explained to me, however she was able to text her friend telling her was happening with her and that was correctly placed, after almost an hour symptoms resolved and patient speech came back normal, patient denied any other associated symptoms such as weakness in any arms or legs, chest pain lightheaded shortness of breath, blurred vision, dizziness, or losing balance or syncope. Patient denied doing any illicit drugs however urine toxicology came back positive for marijuana which she said she inhaled from her daughter who was smoking, patient is a smoker but she told me she decided to quit today, denies alcohol abuse. She has a past medical history of GERD arthritis, chronic sinuses. Patient seen by Dr. Bourgeois who ordered an MRI placed on aspirin, and we initiated stroke protocol. Also patient complained of chronic sinusitis for which I will order Flonase and possible short-term nasal anti- congestion DS: Diagnosis - Discharge Diagnosis (1) Transient cerebral ischemia Status: Acute DS: Medications - Discharge Medications Prescriptions: aspirin 325 mg PO DAILY #30 tab clopidogrel [Plavix] 75 mg PO DAILY #30 tab lisinopril [Prinivil] 20 mg PO DAILY #30 tab DS: Summary Hospital Course: This is a 67 years old female who is a smoker and her urine toxicology was positive for marijuana came with slurring his speech and sudden onset of aphasia. Upon further workup, aphasia likely secondary to TIA. Neurology was consulted. 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 Neck CT showed mild changes in the left ICA, FMD, brain MRI is unremarkable, head & Neck CTA is unremarkable. Echocardiogram showed an ejection fraction of 55-60% with mild TR otherwise unremarkable. May transfer to regular floor. Hemoglobin A1c is 5.7. LDL is 94. Patient was initially placed on heparin per neurology, she was observed overnight of heparin and on Plavix. She did not have any more episodes hence she was switched to aspirin and Plavix on discharge. She will follow-up Holter monitor result as outpatient. She was started on lisinopril upon discharge. - Time Spent with Patient Total time spent providing and/or coordinating discharge services: Greater than 30 minutes - Quality: Stroke Last date observed well: 03/15/18 Last time observed well: 11:25 - Quality: VTE Deep Vein Thrombosis/Pulmonary Embolism Present on Admission: Yes Exam Vital signs: Vital Signs 03/16/18 09:50 03/16/18 12:11 03/16/18 15:42 Temperature 98.1 F 98.1 F Pulse Rate 99 H 73 Respiratory Rate 18 17 Blood Pressure 131/98 H 133/68 Pulse Oximetry 99 96 96 03/16/18 18:04 03/16/18 20:00 03/17/18 00:42 Temperature 98 F 98.4 F Pulse Rate 78 93 H Respiratory Rate 16 20 Blood Pressure 138/78 191/85 H Pulse Oximetry 96 97 98 03/17/18 04:00 03/17/18 08:00 Temperature 98.1 F 98.2 F Pulse Rate 96 H 96 H Respiratory Rate 20 16 Blood Pressure 139/68 143/64 H Pulse Oximetry 99 98 Intake & Output 03/16/18 03/17/18 03/17/18 18:59 06:59 18:59 Intake Total 190 / 190 Balance 190 / 190 Weight 68 kg Intake: IV 190 / 190 Heparin/D5W 25,000 U/250 mL 25, 190 / 190 000 unit In 250 ml @ Per Protocol IV.CONT TITRATE PRN Rx #:[id number] Other: # Voids 3 Date of Last Bowel Movement 03/15/18 Narrative: This is for encounter on 03/18/2018: Patient is more pleasant, no overnight events of heparin. No further slurring of speech or aphasia. No numbness, chest pain, headache or any focal weakness. Discussed with Dr. Lazar, if no overnight events, he will clear her for discharge today. Not in distress PERRL, pink conjunctiva Normal rate and regular rhythm, no murmurs gallops or rubs appreciated. Clear to auscultation and symmetric bilaterally, normal respiratory effort. Normal bowel sounds, soft, non-tender, nondistended, no guarding. Extremities without clubbing, cyanosis, or edema. No rash of generalized distribution. Skin is warm and dry. AAO x3, no cranial nerve deficits, moves all 4 extremities, no focal neurologic deficits, no aphasia. Results Procedures completed during hospitalization: None Labs on day of discharge: Labs from last 24 hours 03/17/18 03/17/18 03/17/18 08:10 06:21 06:21 WBC 8.9 RBC 4.27 Hgb 7.8 L Hct 27.0 L MCV 63.2 L MCH 18.3 L MCHC 29.0 L RDW 20.3 H Plt Count 336 MPV 7.6 APTT 30.6 H POC Glucose 140 H Hemoglobin A1c 03/16/18 03/16/18 03/16/18 23:46 22:43 17:10 WBC RBC Hgb Hct MCV MCH MCHC RDW Plt Count MPV APTT 29.8 POC Glucose 97 112 H Hemoglobin A1c 03/16/18 03/16/18 03/16/18 14:40 14:15 13:14 WBC RBC Hgb Hct MCV MCH MCHC RDW Plt Count MPV APTT 28.0 POC Glucose 123 H 269 H Hemoglobin A1c 03/16/18 04:33 WBC RBC Hgb Hct MCV MCH MCHC RDW Plt Count MPV APTT POC Glucose Hemoglobin A1c 5.7 - Impressions ITS Impressions Carotid Doppler Study 03/15/18 00:00 CONCLUSION: Mild flow velocity acceleration in the right internal carotid artery potentially indicative of stenosis estimated subjectively between 50 and 69%. CTA examination of the arch and carotids recommended. Head MRI 03/15/18 00:00 CONCLUSION: 1. Unremarkable MRI of the brain for patient's age. Chest X-Ray 03/15/18 11:50 CONCLUSION: 1. No acute cardiopulmonary disease. Head CTA 03/15/18 11:50 CONCLUSION: 1. Unremarkable head CTA examination. Specifically, no evidence for large vessel occlusion. Findings were personally discussed with Dr. Holden at 12:35 P.M. Neck CTA 03/15/18 11:50 CONCLUSION: No significant carotid stenosis. 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 Head CT 03/15/18 21:44 CONCLUSION: No acute intracranial findings. Discharge Plan - Discharge Disposition Patient Disposition: 01 Discharge Home - Discharge Condition Condition: Stable - Discharge Order Discharge Orders: Discharge Order (Routine); Ordered 03/18/18 Ordered By: Edi Dawn - Discharge Details Anticipated Discharge Date: 03/17/18 - Physicians Team Primary Care Provider: UNKNOWN, Attending Provider: Edi Dawn Other Providers: Pérez Bourgeois MD
--- NOTE | 2018-03-17 18:17 | P.PNNEU ---
Subjective Subjective Comments: No acute events reported No recurrent episodes of slurred speech or facial droop Active Medications: Active Medications Generic Name Dose Route Start Last Admin Trade Name Freq PRN Reason Stop Dose Admin Acetaminophen 650 mg 03/16/18 02:47 03/17/18 06:27 Tylenol PO 650 mg Q4H PRN Administration PAIN 1-10 Aspirin 325 mg 03/15/18 14:30 03/17/18 08:46 Aspirin PO 325 mg DAILY [facility] Administration Clopidogrel Bisulfate 75 mg 03/17/18 15:30 03/17/18 16:45 Plavix PO 75 mg NOW JOSE ALFREDO Administration Clopidogrel Bisulfate 75 mg 03/18/18 09:00 Plavix PO DAILY [facility] Dextrose 50 ml 03/15/18 13:47 D50w Vial IV.PUSH UNSCH PRN PER HYPOGLYCEMIA PROTOCOL Enalaprilat 1.25 mg 03/15/18 13:58 Vasotec Inj IV.PUSH Q4H PRN For SBP > 220 or DBP > 120 Glucagon 1 mg 03/15/18 13:47 Glucagon Inj OTHER UNSCH PRN for Hypoglycemia Protocol Sodium Chloride 1,000 mls @ 100 mls/hr 03/16/18 14:00 03/17/18 17:59 Ns Inj IV.CONT Not Given .Q10H [facility] Insulin Aspart 0 unit 03/15/18 17:00 03/17/18 16:54 Novolog Insulin Suppl Scale Inj SQ Not Given ACHS [facility] Protocol Pantoprazole Sodium 40 mg 03/17/18 09:00 03/17/18 08:46 Protonix PO 40 mg DAILY [facility] Administration Sodium Chloride 2 ml 03/15/18 21:00 03/17/18 08:46 Ns Flush IV.FLUSH Not Given BID [facility] Sodium Chloride 2 ml 03/15/18 13:47 Ns Flush IV.FLUSH PRN PRN FLUSH AFTER USING IV ACCESS Allergies/Adverse Reactions: Allergies Allergy/AdvReac Type Severity Reaction Status Date / Time diphenhydramine Allergy Unknown Verified 07/01/17 09:53 hydroxyzine Allergy Unknown Verified 07/01/17 09:53 Physical Exam Vital signs: Vital Signs 03/16/18 20:00 03/17/18 00:42 03/17/18 04:00 Temperature 98 F 98.4 F 98.1 F Pulse Rate 78 93 H 96 H Respiratory Rate 16 20 20 Blood Pressure 138/78 191/85 H 139/68 Pulse Oximetry 97 98 99 03/17/18 08:00 03/17/18 11:35 Temperature 98.2 F 98 F Pulse Rate 96 H 82 Respiratory Rate 16 16 Blood Pressure 143/64 H 140/67 Pulse Oximetry 98 96 Intake & Output 03/16/18 03/17/18 03/17/18 18:59 06:59 18:59 Intake Total 190 / 190 1087 / 1087 Balance 190 / 190 1087 / 1087 Weight 68 kg Intake: IV 190 / 190 1087 / 1087 Heparin/D5W 25,000 U/250 mL 25, 190 / 190 137 / 137 000 unit In 250 ml @ Per Protocol IV.CONT TITRATE PRN Rx #:[id number] NS Inj 1,000 ML @ 100 mls/hr IV 950 / 950 .CONT .Q10H JOSE ALFREDO Rx#:[id number] Other: # Voids 3 Date of Last Bowel Movement 03/15/18 - Routine Neurological Exam alert, oriented. Speech normal CN 2-12 normal with no facial weakness MOTOR 5/5 BUE Objective Laboratory Results - last 24 hr 03/16/18 03/16/18 03/17/18 22:43 23:46 06:21 WBC 8.9 RBC 4.27 Hgb 7.8 L Hct 27.0 L MCV 63.2 L MCH 18.3 L MCHC 29.0 L RDW 20.3 H Plt Count 336 MPV 7.6 APTT 29.8 POC Glucose 97 03/17/18 03/17/18 06:21 08:10 WBC RBC Hgb Hct MCV MCH MCHC RDW Plt Count MPV APTT 30.6 H POC Glucose 140 H Review/Management - Review/Management Plan: Impression TIA--stable. Stop iv heparin and start plavix 75 mg daily and continue current dose of aspirin would observe in hospital overnight off iv heparin and if stable ok to discharge tomorrow on plavix and aspirin with follow up with Dr Desai as outpatient
[2018-03-18 00:35] VITALS: O2SAT 95
--- NOTE | 2018-03-18 08:31 | P.PNIM ---
Subjective Interval history: Follow-up for TIA No further episodes last night, no aphasia or slurring of speech. No palpitations, headache, focal weakness or numbness. Physical Exam Vital signs: Vital Signs 03/17/18 11:35 03/17/18 20:00 03/18/18 00:00 Temperature 98 F 98.1 F 99.2 F Pulse Rate 82 94 H 102 H Respiratory Rate 16 18 18 Blood Pressure 140/67 152/67 H 145/63 H Pulse Oximetry 96 96 95 03/18/18 04:00 Temperature 98.5 F Pulse Rate 89 Respiratory Rate 18 Blood Pressure 134/74 Pulse Oximetry 95 Intake & Output 03/17/18 03/18/18 03/18/18 18:59 06:59 18:59 Intake Total 1087 / 1087 Balance 1087 / 1087 Weight 67.1 kg Intake: IV 1087 / 1087 Heparin/D5W 25,000 U/250 mL 25, 137 / 137 000 unit In 250 ml @ Per Protocol IV.CONT TITRATE PRN Rx #:[id number] NS Inj 1,000 ML @ 100 mls/hr IV 950 / 950 .CONT .Q10H [facility] Rx#:[id number] Other: # Voids 2 Results - Labs CBC & Chem 7: 03/17/18 06:21 03/15/18 11:55 Laboratory Results - last 24 hr 03/17/18 03/18/18 21:35 08:15 POC Glucose 163 H 111 H - Procedures None Assessment and Plan - Assessment (1) Transient cerebral ischemia Code(s): G45.9 - Transient cerebral ischemic attack, unspecified Status: Acute - Plan 67 years old female who is a smoker and her urine toxicology was positive for marijuana came with slurring his speech and sudden onset of aphasia. Aphasia, slurring of speech secondary to likely TIA-neurology on board. 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 Neck CT showed mild changes in the left ICA, FMD, MRI is unremarkable, head & Neck CTA is unremarkable. Echocardiogram showed an ejection fraction of 55-60% with mild TR otherwise unremarkable. Hemoglobin A1c is 5.7. LDL is 94. Off heparin, Plavix started yesterday, continue aspirin and Plavix on discharge. Follow up Holter monitor results as outpatient. Discussed with Dr. Lazar, likely discharged today and follow-up with Dr. Bourgeois in 2-4 weeks. Chronic anemia-patient known to Dr. Perdue, allegedly chronic, possible thalassemia, follow-up as outpatient. Iron studies possible iron deficiency. Hypertension-more controlled, continue lisinopril. Tobacco and positive toxic screen for marijuana: Patient counseled extensively No history of diabetes, stop BG's. Hemoglobin A1c is 5.7. Speech therapy. DVT prophylaxis with SCD and heparin Discharge to home when ready (1) Transient cerebral ischemia Qualifiers: Transient cerebral ischemia type: unspecified Qualified Code(s): G45.9 - Transient cerebral ischemic attack, unspecified
[2018-03-18] MEDS: Aspirin 325 MG Tablet PO SCH (08:53)
[2018-03-18] MEDS ORDERED: Lisinopril 20 MG Tablet PO SCH (09:00)
--- NOTE | 2018-03-18 09:19 | P.PNNEU ---
Subjective Subjective Comments: No acute events reported She has had no additional neurologic sx off of iv heparin and now on plavix and asa Active Medications: Active Medications Generic Name Dose Route Start Last Admin Trade Name Nini PRN Reason Stop Dose Admin Acetaminophen 650 mg 03/16/18 02:47 03/17/18 06:27 Tylenol PO 650 mg Q4H PRN Administration PAIN 1-10 Aspirin 325 mg 03/15/18 14:30 03/18/18 08:53 Aspirin PO 325 mg DAILY [facility] Administration Clopidogrel Bisulfate 75 mg 03/17/18 15:30 03/18/18 08:53 Plavix PO 75 mg NOW JOSE ALFREDO Administration Clopidogrel Bisulfate 75 mg 03/18/18 09:00 Plavix PO DAILY [facility] Dextrose 50 ml 03/15/18 13:47 D50w Vial IV.PUSH UNSCH PRN PER HYPOGLYCEMIA PROTOCOL Enalaprilat 1.25 mg 03/15/18 13:58 Vasotec Inj IV.PUSH Q4H PRN For SBP > 220 or DBP > 120 Glucagon 1 mg 03/15/18 13:47 Glucagon Inj OTHER UNSCH PRN for Hypoglycemia Protocol Sodium Chloride 1,000 mls @ 100 mls/hr 03/16/18 14:00 03/17/18 21:08 Ns Inj IV.CONT Not Given .Q10H [facility] Insulin Aspart 0 unit 03/15/18 17:00 03/17/18 21:35 Novolog Insulin Suppl Scale Inj SQ Not Given ACHS [facility] Protocol Lisinopril 20 mg 03/18/18 09:00 Prinivil PO DAILY [facility] Pantoprazole Sodium 40 mg 03/17/18 09:00 03/18/18 08:52 Protonix PO 40 mg DAILY [facility] Administration Sodium Chloride 2 ml 03/15/18 21:00 03/18/18 08:55 Ns Flush IV.FLUSH 2 ml BID [facility] Administration Sodium Chloride 2 ml 03/15/18 13:47 Ns Flush IV.FLUSH PRN PRN FLUSH AFTER USING IV ACCESS Allergies/Adverse Reactions: Allergies Allergy/AdvReac Type Severity Reaction Status Date / Time diphenhydramine Allergy Unknown Verified 07/01/17 09:53 hydroxyzine Allergy Unknown Verified 07/01/17 09:53 Physical Exam Vital signs: Vital Signs 03/17/18 11:35 03/17/18 20:00 03/18/18 00:00 Temperature 98 F 98.1 F 99.2 F Pulse Rate 82 94 H 102 H Respiratory Rate 16 18 18 Blood Pressure 140/67 152/67 H 145/63 H Pulse Oximetry 96 96 95 03/18/18 04:00 Temperature 98.5 F Pulse Rate 89 Respiratory Rate 18 Blood Pressure 134/74 Pulse Oximetry 95 Intake & Output 03/17/18 03/18/18 03/18/18 18:59 06:59 18:59 Intake Total 1087 / 1087 Balance 1087 / 1087 Weight 67.1 kg Intake: IV 1087 / 1087 Heparin/D5W 25,000 U/250 mL 25, 137 / 137 000 unit In 250 ml @ Per Protocol IV.CONT TITRATE PRN Rx #:[id number] NS Inj 1,000 ML @ 100 mls/hr IV 950 / 950 .CONT .Q10H JO[facility] ALFREDO Rx#:[id number] Other: # Voids 2 - Detailed Neurological Exam: Coma Scale alert, oriented, speech is normal CN 2-12 normal MOTOR 5/5 BUE Objective Laboratory Results - last 24 hr 03/17/18 03/18/18 21:35 08:15 POC Glucose 163 H 111 H Diagnostic Tests: ECHOCARDIOGRAM is normal Review/Management - Diagnosis (1) TIA (transient ischemic attack) Code(s): G45.9 - Transient cerebral ischemic attack, unspecified Status: Acute Current Visit: Yes (2) Transient cerebral ischemia Code(s): G45.9 - Transient cerebral ischemic attack, unspecified Status: Acute Current Visit: Yes - Review/Management Plan: Impression TIA--stable without recurrence off of iv heparin Ok to discharge home on plavix and aspirin with follow up with Dr Desai in 2 weeks (2) Transient cerebral ischemia Qualifiers: Transient cerebral ischemia type: unspecified Qualified Code(s): G45.9 - Transient cerebral ischemic attack, unspecified
[2018-03-18 09:36] VITALS: BP 106/57; PULSE 97; RESP 19; TEMP 97
[2018-03-19 03:52] LABS: Dil Russell Viper Venom Conf ( ND (NEGATIVE); Dil Russell Viper Venom Time M ND (CORRECTED); Lupus Anticoagulant PTT Screen 34 seconds (< OR = 40)
--- NOTE | 2018-03-19 14:19 | HM ---
Date Performed: 03/16/2018 Time Performed: 16:56:00 HOOKUP DATE: 03/16/18 04:56:00 PM Fri ANALYSIS START TIME: 03/16/2018 5:01:00 PM ANALYSIS END TIME: 03/17/2018 4:02:59 PM PATIENT AGE: 67 PATIENT HEIGHT PATIENT WEIGHT DRUG LIST PATIENT DIAGNOSIS: MEDICAL STRAIGHT BACK TEST NARRATIVE: The patient's average heart rate was 93 BPM. Heart rates greater than 120 B PM were noted 1% of the time. No episodes of bradycardia were noted. No pauses exceeding 2.0 sec onds were noted. 4 ventricular ectopics, which represented < 1% of the total beat count, were not ed. The highest ventricular ectopic frequency occurred from 06:00 PM to 07:00 PM Fri. During this t ronald 1 VE(s) occurred. Ventricular ectopics were observed as 4 isolated beat(s) only. No couplets or runs were noted. 126 supraventricular ectopics, which represented < 1% of the total beat count, were noted. The highest supraventricular ectopic frequency occurred from 09:00 AM to 10:00 AM Sat. During this time 16 SVE(s) occurred. Multiple episodes of ST depression (defined as -1.0 mm or mo re) were noted in channel 1. The maximum depression of -1.8 mm occurred at 07:30:31 PM Fri. No epi sodes of ST depression (defined as -1.0 mm or more) were noted in channel 2. No episodes of ST depre ssion (defined as -1.0 mm or more) were noted in channel 3. TEST INTERPRETATION: HOLTER MONITOR DEMOSTRATES SINUS RYTHMN WITH IS A RARE PVC AND PAC, NO OTHE R SIGNICANT ARRYTHMIAS SEEN Signed by : Pérez Bhatt
== END 2018-03-18 11:38 | disposition home or self-care (01) ==
LOC: NEPC 11:44 → N05 11:44 → NEDA 11:44 → NEPHCDU 15:58 → N03 22:00 → N05 03-16 12:05
PROVIDERS: ADMIT Hospitalist; ATTEND Hospitalist